=== PATIENT | female | born 2000 | race Caucasian/White ===

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

== ENCOUNTER 2021-01-04 09:03 | Emergency (ER) | payer OTHER, SELFPAY ==
[2021-01-04 09:07] VITALS: BP 129/84; PULSE 100; RESP 16; TEMP 36.6; O2SAT 100; BMI 43.7
--- NOTE | 2021-01-04 09:41 | ED.BACK ---
HPI - Back Pain/Injury General Chief Complaint: Back Pain/Injury Stated Complaint: sciatica Time Seen by Provider: 01/04/21 09:37 Source: patient Mode of arrival: ambulatory History of Present Illness HPI Narrative: 20-year-old female With a past medical history of sciatica presenting to the ED complaining of right-sided low back pain radiating to right buttock and down right lower extremity x2 days. Reports a flare of her sciatic pain. Reports woke up with pain, denies known injury, trauma, fall, heavy lifting. Admits to associated paresthesias in his right foot. Denies numbness, weakness, urinary incontinence/retention, fever, chills. Taking Tylenol/ Motrin at home without relief MD elicited complaint: back pain Related Data Previous Rx's Medication Instructions Recorded amoxicillin 875 mg PO Q12H #20 tab 10/26/20 acetaminophen [Tylenol Extra 500 mg PO Q6H PRN #20 tab 01/04/21 Strength] cyclobenzaprine 5 mg PO Q8H PRN 5 Days #14 tab 01/04/21 lidocaine [Lidoderm] 1 patch TOPICAL DAILY PRN #30 ea 01/04/21 MDD remove after 12 hours naproxen 500 mg PO BID PRN 10 Days #20 tab 01/04/21 Allergies Allergy/AdvReac Type Severity Reaction Status Date / Time No Known Allergies Allergy Unverified 07/22/20 18:33 Review of Systems Review of Systems: Constitutional: No Fever, No Chills Genitourinary: No Urinary Frequency, No Hematuria, No Urinary Incontinence/retention Musculoskeletal: +back pain, No Myalgias, No Joint Swelling Skin: No Skin Lesions, No rash Neuro: No Weakness, No Numbness, + Paresthesias Yes all other systems are reviewed and are negative COUNTS INCLUDE 234 BEDS AT THE [facility] Past Medical History Attestation statement: The following information was validated with the patient. Medical History Scarlet fever Surgical History (Updated 10/26/20 @ 11:05 by Avril Frye) H/O adenoidectomy Hx of tonsillectomy Social History Social History Advance Directives: Yes Advance Directives Information Provided: No Advance Directives on File: No Physical Exam Vital Signs: Vital Signs: Last Vital Signs Temp 97.9 F 01/04/21 09:07 Pulse 100 01/04/21 09:07 Resp 16 01/04/21 09:07 BP 129/84 01/04/21 09:07 Pulse Ox 100 01/04/21 09:07 Body Mass Index 43.7 Const: General: cooperative and healthy appearing Orientation/consciousness: patient oriented x3 Limitations: no limitations HENMT: Head: Yes normal to inspection Ears: hearing grossly normal bilaterally General nose exam: Normal external nose present Face and sinus: Yes normal facial exam Eyes: General: appearance normal, both eyes and all related structures EOM: EOMs intact bilaterally Neck: Neck: Yes normal visual inspection Resp: Effort & Inspection: normal respiratory effort Cardio: Rate: regular rate Peripheral pulses: dorsalis pedis present Back/Spine/Pelvis: Other: No midline thoracic/lumbar spinous tenderness or step-off. + right-sided and left-sided lower lumbar MSK tenderness. Right buttock tenderness to palpation Skin: Rashes: no rashes Wounds: no wounds Neuro: Other: No saddle anesthesia General: patient oriented x3 Gait exam (Neuro): Normal gait present Motor exam (neuro): 5/5 motor strength present throughout Extrem: General: Yes normal to inspection MDM - Back Pain/Injury MDM Narrative Medical decision making narrative: On exam VSS, NAD/well appearing, no midline spinous tenderness throughout, no red flag symptoms, no saddle anesthesia. Likely MSK pain/sciatic pain. Low concern for cauda equina/cord compression. Medical Records Attestation: I reviewed the patient's medical records. Discharge Plan Discharge Clinical Impression: Sciatica Qualifiers: Laterality: right Qualified Code(s): M54.31 - Sciatica, right side Patient Disposition: Home, Self-Care Instructions: Back Pain (ED) Additional Instructions: Your pain is likely musculoskeletal Flexeril is a muscle relaxer, take at night as it makes you drowsy, do not drive, drink alcohol, or operate machinery while taking it Naproxen as an anti-inflammatory / pain medication, take with food Lidoderm patches are numbing patches, apply to painful area In addition take Tylenol at home If symptoms persist or worsen, pain becomes unbearable, you developed urinary retention or incontinence, or weakness return to the ED Prescriptions: New acetaminophen [Tylenol Extra Strength] 500 mg tablet 500 mg PO Q6H PRN (Reason: pain or fever) Qty: 20 RF: 0 lidocaine [Lidoderm] 5 % adhesive patch,medicated 1 patch topical DAILY MDD remove after 12 hours PRN (Reason: pain) Qty: 30 RF: 0 naproxen 500 mg tablet 500 mg PO BID PRN (Reason: pain) 10 Days Qty: 20 RF: 0 cyclobenzaprine 5 mg tablet 5 mg PO Q8H PRN (Reason: pain (scale score 7-10)) 5 Days Qty: 14 RF: 0 No Action amoxicillin 875 mg tablet 875 mg PO Q12H Qty: 20 RF: 0 Referrals: Teresita Clemens, [Primary Care Provider] - 5 days Stand Alone Forms: Work/School Release
[2021-01-04] MEDS: Ketorolac Tromethamine 30 MG/ML VIAL IM (10:04)
[2021-01-04] MEDS: Lidocaine 4 % Patch ADH..PATCH 1 PATCH TRANSDERMA (10:05)
== END 2021-01-04 10:13 | disposition home or self-care (01) ==
PROVIDERS: Emergency Provider Emergency Medicine; PCP Pediatrics
DX: M54.31 Sciatica, right side (principal); Z79.899 Other long term (current) drug therapy
CPT/HCPCS: 96372; 99283; 99284; J1885

== ENCOUNTER 2021-03-20 17:14 | Emergency (ER) | payer MEDICAID, SELFPAY ==
[2021-03-20 17:26] VITALS: BP 142/86; PULSE 108; RESP 18; TEMP 36.6; O2SAT 97; BMI 46.3
--- NOTE | 2021-03-20 19:43 | PC.NURSE ---
Pt ambulatory with steady gait to stretcher, in NAD, breathing with ease on RA. Pt aaox4, appears uncomfortable. Pt offers no concerns. Stretcher in lowest locked position, rails raised, awaiting ED Provider.
--- NOTE | 2021-03-20 20:27 | ED.HA ---
HPI - Headache General Chief Complaint: Headache Stated Complaint: headache Time Seen by Provider: 03/20/21 20:27 Source: patient Mode of arrival: ambulatory Limitations: no limitations History of Present Illness HPI Narrative: Patient history of migraine being having headache been having headache all day today with light sensitivity and nausea MD elicited complaint: headache Pertinent past history: migraines Onset (ago): hour(s) Related Data Previous Rx's Medication Instructions Recorded amoxicillin 875 mg PO Q12H #20 tab 10/26/20 acetaminophen [Tylenol Extra 500 mg PO Q6H PRN #20 tab 01/04/21 Strength] cyclobenzaprine 5 mg PO Q8H PRN 5 Days #14 tab 01/04/21 lidocaine [Lidoderm] 1 patch TOPICAL DAILY PRN #30 ea 01/04/21 MDD remove after 12 hours naproxen 500 mg PO BID PRN 10 Days #20 tab 01/04/21 [id number] 1 cap PO Q6H PRN #20 cap 03/20/21 [Fioricet] sumatriptan succinate [Imitrex] See Rx Instructions .ROUTE 03/20/21 .COMPLEX #10 tab Allergies Allergy/AdvReac Type Severity Reaction Status Date / Time No Known Allergies Allergy Unverified 07/22/20 18:33 Review of Systems Review of Systems: Constitutional : No Weight loss, No Fever, No Chills ENT/Mouth : No sore throat, No Rhinorrhea Eyes: No Eye Pain, No Swelling Cardiovascular : No Chest Pain, no palpitations Respiratory : No Cough, No Sputum, no shortness of breath Gastrointestinal : + Nausea, No Vomiting, No Diarrhea, No abdominal Pain, no black stools Genitourinary : No Dysuria, No Urinary Frequency Musculoskeletal : No joint pain, No Myalgias, No Joint Swelling Skin : No Skin Lesions, No rash Neuro : No Weakness, No Numbness, No Dizziness, + Headache Psych : No Anxiety/Panic, No Depression Heme/Lymph: No Bruising, No Lymphadenopathy Endocrine : No Polyuria, No Polydipsia All other systems reviewed and are negative PMFSH Past Medical History Medical History Scarlet fever Surgical History H/O adenoidectomy Hx of tonsillectomy Social History Social History Advance Directives: No Advance Directives Information Provided: No Patient : No Physical Exam Vital Signs: Vital Signs: Last Vital Signs Temp 98.5 F 03/20/21 20:44 Pulse 81 03/20/21 20:44 Resp 18 03/20/21 20:44 BP 128/71 03/20/21 20:44 Pulse Ox 98 03/20/21 20:44 Body Mass Index 46.3 Appearance: Alert. Oriented X3. No acute distress. Eyes: PERRLA, No Nystagmus photosensitive ENT: Pharynx normal. Oral Mucosa moist Neck: Normal inspection. Neck supple. CVS: Normal heart rate and rhythm. Pulses normal. Respiratory: No respiratory distress. Equal air entry bilateral, no wheezing/rales/rhonchi Abdomen: Soft and nontender. Bowel sounds are present, no mass palpable, no CVA tenderness Skin: Skin warm and dry. Normal skin color. Normal skin turgor. Extremities: No lower extremity edema. No calf tenderness Neuro: Oriented X 3. No motor deficit. No sensory deficit.No cerebellar signs , cranial nerves II-XII intact MDM - Headache MDM Narrative Medical decision making narrative: Patient responded to Imitrex will discharge home on Imitrex and Fioricet Differential Diagnosis Differential diagnosis: Likely migraine Discharge Plan Discharge Clinical Impression: Migraine Qualifiers: Migraine type: with aura Status migrainosus presence: without status migrainosus Intractability: not intractable Qualified Code(s): G43.109 - Migraine with aura, not intractable, without status migrainosus Patient Disposition: Home, Self-Care Instructions: Migraine Headache (ED) Additional Instructions: Rest at home take medicine as prescribed Follow-up with PCP if not better Prescriptions: New sumatriptan succinate [Imitrex] 50 mg tablet See Rx Instructions .ROUTE .COMPLEX Qty: 10 RF: 0 [id number]-[id number]-runk [Fioricet] 50-300-40 mg capsule 1 cap PO Q6H PRN (Reason: pain) Qty: 20 RF: 0 No Action amoxicillin 875 mg tablet 875 mg PO Q12H Qty: 20 RF: 0 acetaminophen [Tylenol Extra Strength] 500 mg tablet 500 mg PO Q6H PRN (Reason: pain or fever) Qty: 20 RF: 0 lidocaine [Lidoderm] 5 % adhesive patch,medicated 1 patch topical DAILY MDD remove after 12 hours PRN (Reason: pain) Qty: 30 RF: 0 naproxen 500 mg tablet 500 mg PO BID PRN (Reason: pain) 10 Days Qty: 20 RF: 0 cyclobenzaprine 5 mg tablet 5 mg PO Q8H PRN (Reason: pain (scale score 7-10)) 5 Days Qty: 14 RF: 0
[2021-03-20 20:44] VITALS: BP 128/71; PULSE 81; RESP 18; TEMP 36.9; O2SAT 98
[2021-03-20] MEDS: Ibuprofen 600 MG TABLET PO (21:47)
== END 2021-03-20 22:25 | disposition home or self-care (01) ==
PROVIDERS: Emergency Provider Internal Medicine
DX: G43.109 Migraine with aura, not intractable, without status migrainosus (principal); Z79.899 Other long term (current) drug therapy
CPT/HCPCS: 96372; 99283; 99284; J3030

== ENCOUNTER 2021-12-14 10:38 | Emergency (ER) | payer OTHER, SELFPAY ==
[2021-12-14 10:44] VITALS: BP 133/59; PULSE 100; RESP 19; TEMP 36.6; O2SAT 100; BMI 44.1
--- NOTE | 2021-12-14 11:58 | ED_ITS ---
HPI - Fall General Chief Complaint: Back Pain/Injury Stated Complaint: fall back inj at work Time Seen by Provider: 12/14/21 11:58 History of Present Illness HPI Narrative: Patient complains of right low back and right gluteal pain after a slip and fall in the parking lot at work last night, she felt back pain right away, no other injury No numbness no weakness no tingling no radiation of pain no changes to bowel or bladder She did not hit her head she has no neck Related Data Previous Rx's Medication Instructions Recorded amoxicillin 875 mg tablet 875 mg PO Q12H #20 tab 10/26/20 acetaminophen 500 mg tablet 500 mg PO Q6H PRN #20 tab 01/04/21 (Tylenol Extra Strength) cyclobenzaprine 5 mg tablet 5 mg PO Q8H PRN 5 Days #14 tab 01/04/21 lidocaine 5 % topical patch 1 patch TOPICAL DAILY PRN #30 ea 01/04/21 (Lidoderm) MDD remove after 12 hours naproxen 500 mg tablet 500 mg PO BID PRN 10 Days #20 tab 01/04/21 [id number]-[id number] 1 cap PO Q6H PRN #20 cap 03/20/21 50 mg-300 mg-40 mg capsule (Fioricet) sumatriptan succinate 50 mg tablet See Rx Instructions .ROUTE 03/20/21 (Imitrex) .COMPLEX #10 tab acetaminophen 500 mg tablet 1,000 mg PO QID PRN #30 tab 12/14/21 cyclobenzaprine 5 mg tablet 5 mg PO TID PRN #10 tab 12/14/21 ibuprofen 600 mg tablet 600 mg PO Q6H PRN #20 tab 12/14/21 Allergies Allergy/AdvReac Type Severity Reaction Status Date / Time No Known Allergies Allergy Unverified 07/22/20 18:33 Review of Systems Review of Systems: Positive for right low back pain after a fall Negatives are no headache no head injury no neck pain no numbness weakness or tingling no chest pain no rib pain no abdominal pain no changes to bowel or bl adder no dysuria no frequency no incontinence no extremity pains Yes all other systems are reviewed and are negative PMFSH Past Medical History Source: nursing notes reviewed Medical History (Updated 12/14/21 @ 12:04 by ARTURO Jarrell) Anxiety Migraines Scarlet fever Sciatic leg pain Surgical History H/O adenoidectomy Hx of tonsillectomy Social History Social History Advance Directives: No Advance Directives Information Provided: No Physical Exam Vital Signs: Vital Signs: Last Vital Signs Temp 98 F 12/14/21 10:44 Pulse 100 12/14/21 10:44 Resp 19 12/14/21 10:44 BP 133/59 L 12/14/21 10:44 Pulse Ox 100 12/14/21 10:44 BMI result Body Mass Index 44.1 General appearance no acute distress Head is normocephalic atraumatic Neck is supple nontender Chest wall nontender Abdomen is soft nontender The back had right-sided lower lumbar paraspinal tenderness, there is no bony tenderness no CVA tenderness no changes to the skin no ecchymosis no laceration no wounds no rashes The extremities are full range of motion x4 Neuro gait and balance are normal, there is no sensory deficit, and motor is 5/5 x4 Course Course Course Narrative: Well-appearing patient without neurologic deficit or any other injuries diagnosed with low back strain from a fall Discharge Plan Discharge Clinical Impression: Strain of lumbar region Patient Disposition: Home, Self-Care Additional Instructions: No sign of any broken bone or dangerous injury, but you do seem to have strained muscles in her back and her experiencing pain As this is a work related injury follow with [facility] Return any time any worse condition or any concerns Prescriptions: New acetaminophen 500 mg tablet 1,000 mg PO QID PRN (Reason: pain) Qty: 30 0RF cyclobenzaprine 5 mg tablet 5 mg PO TID PRN (Reason: muscle spasm) Qty: 10 0RF ibuprofen 600 mg tablet 600 mg PO Q6H PRN (Reason: pain) Qty: 20 0RF No Action amoxicillin 875 mg tablet 875 mg PO Q12H Qty: 20 0RF acetaminophen [Tylenol Extra Strength] 500 mg tablet 500 mg PO Q6H PRN (Reason: pain or fever) Qty: 20 0RF lidocaine [Lidoderm] 5 % adhesive patch,medicated 1 patch topical DAILY MDD remove after 12 hours PRN (Reason: pain) Qty: 30 0RF Rx Instructions: leave on most painful area for up to 12 hrs naproxen 500 mg tablet 500 mg PO BID PRN (Reason: pain) 10 Days Qty: 20 0RF cyclobenzaprine 5 mg tablet 5 mg PO Q8H PRN (Reason: pain (scale score 7-10)) 5 Days Qty: 14 0RF sumatriptan succinate [Imitrex] 50 mg tablet See Rx Instructions .ROUTE .COMPLEX Qty: 10 0RF Rx Instructions: take 1 tab at onset of headache; if no relief may repeat 1 tab after at least 2 hrs; max = 2 tabs/24 hr [id number]-[id number] [Fioricet] 50-300-40 mg capsule 1 cap PO Q6H PRN (Reason: pain) Qty: 20 0RF Referrals: [facility] [Provider Group] - 2 days (Back strain after fall at work) Stand Alone Forms: Work/School Release Interventions: ED Discharge Assessment Last Done: 12/14/21 12:39 Discharge Date/Time: 12/14/21 12:49
[2021-12-14] MEDS: Ketorolac Tromethamine 30 MG/ML VIAL IM (12:36)
== END 2021-12-14 12:49 | disposition home or self-care (01) ==
PROVIDERS: Emergency Provider Emergency Medicine
DX: S39.012A Strain of muscle, fascia and tendon of lower back, initial encounter (principal); W01.0XXA Fall on same level from slipping, tripping and stumbling without subsequent striking against object, initial encounter; Y93.01 Activity, walking, marching and hiking; Y92.481 Parking lot as the place of occurrence of the external cause; Y99.0 Civilian activity done for income or pay
CPT/HCPCS: 96372; 99284; J1885

== ENCOUNTER 2022-02-16 19:41 | Emergency (ER) | payer OTHER, SELFPAY ==
--- NOTE | ~2022-02-16 | XR_ITS ---
EXAMINATION: XR chest 1V CLINICAL INFORMATION: Reason for Exam CP COMPARISON: Chest radiograph 12/30/2019 TECHNIQUE: One view of the chest XR/XR chest 1V FINDINGS/IMPRESSION: Clear lungs. No pneumothorax. No pleural effusion. Normal cardiomediastinal silhouette.
--- NOTE | 2022-02-16 19:43 | ECG_ITS ---
Test Reason : chest pain Blood Pressure : / mmHG Vent. Rate : 121 BPM Atrial Rate : 122 BPM P-R Int : 146 ms QRS Dur : 080 ms QT Int : 304 ms P-R-T Axes : 047 043 -01 degrees QTc Int : 431 ms Sinus tachycardia Otherwise normal ECG When compared with ECG of 30-DEC-2019 05:55, No significant change was found Referred By: Generic ED Physician Electronically Signed By:Fawad So
[2022-02-16 19:48] VITALS: BP 152/95; PULSE 118; RESP 14; TEMP 37.1; O2SAT 95; BMI 44.1
[2022-02-16 20:08] LABS: MANUAL DIFF FLAG NO
[2022-02-16 20:09] LABS: Basophils Percent Auto 0.3 % (0-2); Eosinophils Absolute Auto 0.1 X10*3/uL (0.0-0.4); Eosinophils Percent Auto 1.7 % (0-4); Hematocrit 43.1 % (37.0-47.0); Hemoglobin 14.2 g/dl (12.0-16.0); Imm Gran Abs Auto 0.05 X10*3/uL (0.00-0.03); Imm Gran Pct Auto 0.7 % (0.0-0.4); Lymphocytes Absolute Auto 1.7 X10*3/uL (1.2-4.9); Lymphocytes Percent Auto 23.1 % (20-40); Mean Corpuscular HGB Conc 32.9 g/dl (31.0-35.0); Mean Corpuscular Hemoglobin 26.9 pg (27.0-33.0); Mean Corpuscular Volume 81.8 fL (80.0-98.0); Mean Platelet Volume 9.8 fL (9.4-12.3); Monocytes Percent Auto 13.7 % (2-11); Neutrophils Absolute Auto 4.5 x10*3/uL (2.0-8.3); Neutrophils Percent Auto 60.5 % (45-73); Platelet Count 286 X10*3/uL (160-400); Red Blood Count 5.27 X10*6/uL (4.20-5.50); Red Cell Distribution Width 14.2 % (11.0-16.0); White Blood Count 7.4 X10*3/uL (4.8-10.8)
[2022-02-16 20:26] VITALS: BP 126/83; PULSE 113; RESP 20; TEMP 37.2; O2SAT 94
[2022-02-16 20:30] LABS: Anion Gap 15 (12-20); Blood Urea Nitrogen 8 mg/dL (9-16); Calcium 9.3 mg/dL (8.4-10.2); Carbon Dioxide 23 mmol/L (22-29); Chloride 107 mmol/L (96-108); Creatinine Clr Calc Pharmacy 140.7; Estimated Glomerular Filt Rate > 60; Glucose Random 88 mg/dL (60-115); Potassium 3.8 mmol/L (3.3-5.1); Sodium 141 mmol/L (135-145)
[2022-02-16 20:35] LABS: Troponin-I High Sensitivity < 3.5 ng/L (<3.5-17.0)
--- NOTE | 2022-02-16 21:31 | ED.CHESTPAIN ---
HPI - Chest Pain General Chief Complaint: Chest Pain Stated Complaint: chest pain Time Seen by Provider: 02/16/22 21:11 Source: patient Mode of arrival: ambulatory History of Present Illness HPI narrative: 21-year-old female with history of asthma and anxiety presents with onset substernal chest pressure that began in approximately 1300 this afternoon and radiates into the left upper extremity but not associated diaphoresis, dizziness, shortness of breath, nausea but the nausea has been ongoing and is consistent with her recent diagnosis of food poisoning, and denies any recent fever, chills, sore throat, new cough, recent travel, patient does smoke cigarettes and reports a positive family history of early CAD with an FL in her grandmother at the age of 50. Patient has not taken anything recently and has not had any vomiting. Related Data Previous Rx's Medication Instructions Recorded amoxicillin 875 mg tablet 875 mg PO Q12H #20 tab 10/26/20 acetaminophen 500 mg tablet 500 mg PO Q6H PRN #20 tab 01/04/21 (Tylenol Extra Strength) cyclobenzaprine 5 mg tablet 5 mg PO Q8H PRN 5 Days #14 tab 01/04/21 lidocaine 5 % topical patch 1 patch TOPICAL DAILY PRN #30 ea 01/04/21 (Lidoderm) MDD remove after 12 hours naproxen 500 mg tablet 500 mg PO BID PRN 10 Days #20 tab 01/04/21 [id number]-zrawzgipkuand-fpuctzae 1 cap PO Q6H PRN #20 cap 03/20/21 50 mg-300 mg-40 mg capsule (Fioricet) sumatriptan succinate 50 mg tablet See Rx Instructions .ROUTE 03/20/21 (Imitrex) .COMPLEX #10 tab acetaminophen 500 mg tablet 1,000 mg PO QID PRN #30 tab 12/14/21 cyclobenzaprine 5 mg tablet 5 mg PO TID PRN #10 tab 12/14/21 ibuprofen 600 mg tablet 600 mg PO Q6H PRN #20 tab 12/14/21 Allergies Allergy/AdvReac Type Severity Reaction Status Date / Time No Known Allergies Allergy Unverified 07/22/20 18:33 Review of Systems Review of Systems: Pertinent positives and negatives as stated in HPI 10 point review of systems is otherwise negative. [facility] Past Medical History Source: nursing notes reviewed Medical History Anxiety Migraines Scarlet fever Sciatic leg pain Surgical History H/O adenoidectomy Hx of tonsillectomy Social History Social History Advance Directives: No Physical Exam Vital Signs: Vital Signs: Last Vital Signs Temp 98.0 F 02/16/22 22:00 Pulse 109 H 02/16/22 22:00 Resp 17 02/16/22 22:00 BP 128/57 L 02/16/22 22:00 Pulse Ox 95 02/16/22 22:00 BMI result Body Mass Index 44.1 VITAL SIGNS: Reviewed. GENERAL: Well developed, well nourished, in no acute distress. HEAD: Normocephalic/atraumatic EYES: PERRLA, EOMI EARS: Ext canals without abnormality OROPHARYNX: no oral lesions noted, posterior pharynx clear and non-erythematous without noted tonsillar enlargement/erythema/exudates NECK: Supple, no adenopathy LUNGS: Normal breath sounds. No adventitious sounds or accessory muscle use. SpO2<94>; CHEST WALL: Pain is not reproducible but patient reports discomfort CARDIOVASCULAR: Regular rate and rhythm without noted murmurs, no JVD or lower extremity edema. ABDOMEN: Soft, non-tender, non-distended with bowel sounds. MUSCULOSKELETAL: No tenderness, deformities, or effusions noted on gross inspection. EXTREMITIES: No cyanosis, clubbing or edema. SKIN: Inspection of the skin reveals no rashes NEUROLOGIC: Alert and oriented x 4. Strength and sensation to light touch were grossly intact x 4. 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 Review of all investigations otherwise negative, EKG without acute findings and high sensitivity troponin is undetectable. In addition, on re-evaluation patient reports significant improvement after receiving combination analgesics/GI cocktail/albuterol treatment for suspected mild asthma symptoms. Patient without calf swelling or reported shortness of breath and low clinical suspicion for PE. Patient is otherwise discharged home in stable condition. MDM - Chest Pain Lab Data Result diagrams: 02/16/22 19:56 02/16/22 19:56 Labs: Lab Results 02/16/22 02/16/22 02/16/22 Range/Units 19:56 19:56 19:56 WBC 7.4 (4.8-10.8) X10*3/uL RBC 5.27 (4.20-5.50) X10*6/uL Hgb 14.2 (12.0-16.0) g/dl Hct 43.1 (37.0-47.0) % MCV 81.8 (80.0-98.0) fL MCH 26.9 L (27.0-33.0) pg MCHC 32.9 (31.0-35.0) g/dl RDW 14.2 (11.0-16.0) % Plt Count 286 (160-400) X10*3/uL MPV 9.8 (9.4-12.3) fL Immature Gran % (Auto) 0.7 H (0.0-0.4) % Neut % (Auto) 60.5 (45-73) % Lymph % (Auto) 23.1 (20-40) % [place] % (Auto) 13.7 H (2-11) % Eos % (Auto) 1.7 (0-4) % Baso % (Auto) 0.3 (0-2) % Lymph # (Auto) 1.7 (1.2-4.9) X10*3/uL [place] # (Auto) 1.0 (0.1-1.2) X10*3/uL Eos # (Auto) 0.1 (0.0-0.4) X10*3/uL Baso # (Auto) 0.0 (0.0-0.2) X10*3/uL Abs Immat Gran (auto) 0.05 H (0.00-0.03) X10*3/uL Absolute Neuts (auto) 4.5 (2.0-8.3) x10*3/uL Absolute Nucleated RBC 0.000 (0.0-0.012) X10*3/uL Nucleated RBC % (auto) 0.0 (0.0-0.2) /100WBC D-Dimer High Sensitivty NG/ML Sodium 141 (135-145) mmol/L Potassium 3.8 (3.3-5.1) mmol/L Chloride 107 (96-108) mmol/L Carbon Dioxide 23 (22-29) mmol/L Anion Gap 15 (12-20) BUN 8 L (9-16) mg/dL Creatinine 0.80 (0.5-1.4) mg/dL Estim Creat Clear Calc 140.7 Estimated GFR > 60 Random Glucose 88 (60-115) mg/dL Calcium 9.3 (8.4-10.2) mg/dL Troponin I High Sens < 3.5 (<3.5-17.0) ng/L Lipase 84 H (8-78) U/L 02/16/22 Range/Units 22:05 WBC (4.8-10.8) X10*3/uL RBC (4.20-5.50) X10*6/uL Hgb (12.0-16.0) g/dl Hct (37.0-47.0) % MCV (80.0-98.0) fL MCH (27.0-33.0) pg MCHC (31.0-35.0) g/dl RDW (11.0-16.0) % Plt Count (160-400) X10*3/uL MPV (9.4-12.3) fL Immature Gran % (Auto) (0.0-0.4) % Neut % (Auto) (45-73) % Lymph % (Auto) (20-40) % [place] % (Auto) (2-11) % Eos % (Auto) (0-4) % Baso % (Auto) (0-2) % Lymph # (Auto) (1.2-4.9) X10*3/uL [place] # (Auto) (0.1-1.2) X10*3/uL Eos # (Auto) (0.0-0.4) X10*3/uL Baso # (Auto) (0.0-0.2) X10*3/uL Abs Immat Gran (auto) (0.00-0.03) X10*3/uL Absolute Neuts (auto) (2.0-8.3) x10*3/uL Absolute Nucleated RBC (0.0-0.012) X10*3/uL Nucleated RBC % (auto) (0.0-0.2) /100WBC D-Dimer High Sensitivty 295 NG/ML Sodium (135-145) mmol/L Potassium (3.3-5.1) mmol/L Chloride (96-108) mmol/L Carbon Dioxide (22-29) mmol/L Anion Gap (12-20) BUN (9-16) mg/dL Creatinine (0.5-1.4) mg/dL Estim Creat Clear Calc Estimated GFR Random Glucose (60-115) mg/dL Calcium (8.4-10.2) mg/dL Troponin I High Sens (<3.5-17.0) ng/L Lipase (8-78) U/L ECG Data ECG #1: Attestation: I personally reviewed and interpreted this ECG as follows: Prior ECG tracings: available for review Interpretation: NSR, HR-121, no STEMI, [place]/QRS/QTC are within normal limits. Discharge Plan Discharge Clinical Impression: Atypical chest pain, Costalchondritis, Musculoskeletal chest pain Patient Disposition: Home, Self-Care Instructions: Costochondritis (ED), Chest Wall Pain (ED), Chest Pain (ED) Additional Instructions: 1. Recommend resuming all home medications as prescribed. 2. Recommend [id number] Tylenol/ibuprofen as needed for additional pain relief. 3. Follow-up with your primary care provider for re-evaluation further outpatient management. Return to the ER for worsening symptoms. Prescriptions: No Action amoxicillin 875 mg tablet 875 mg PO Q12H Qty: 20 0RF acetaminophen [Tylenol Extra Strength] 500 mg tablet 500 mg PO Q6H PRN (Reason: pain or fever) Qty: 20 0RF lidocaine [Lidoderm] 5 % adhesive patch,medicated 1 patch topical DAILY MDD remove after 12 hours PRN (Reason: pain) Qty: 30 0RF Rx Instructions: leave on most painful area for up to 12 hrs naproxen 500 mg tablet 500 mg PO BID PRN (Reason: pain) 10 Days Qty: 20 0RF cyclobenzaprine 5 mg tablet 5 mg PO Q8H PRN (Reason: pain (scale score 7-10)) 5 Days Qty: 14 0RF sumatriptan succinate [Imitrex] 50 mg tablet See Rx Instructions .ROUTE .COMPLEX Qty: 10 0RF Rx Instructions: take 1 tab at onset of headache; if no relief may repeat 1 tab after at least 2 hrs; max = 2 tabs/24 hr fndqnujfgb-vmmgkqoubvarf-kgol [Fioricet] 50-300-40 mg capsule 1 cap PO Q6H PRN (Reason: pain) Qty: 20 0RF acetaminophen 500 mg tablet 1,000 mg PO QID PRN (Reason: pain) Qty: 30 0RF cyclobenzaprine 5 mg tablet 5 mg PO TID PRN (Reason: muscle spasm) Qty: 10 0RF ibuprofen 600 mg tablet 600 mg PO Q6H PRN (Reason: pain) Qty: 20 0RF
[2022-02-16] MEDS: Acetaminophen 325 MG TABLET 975 MG PO (21:37)
[2022-02-16] MEDS: Ketorolac Tromethamine 15 MG/ML VIAL IM (21:38)
[2022-02-16] MEDS: Lidocaine HCl Viscous 2 % 15 ML SOLUTION 10 ML MUCOUS MEM (21:39)
[2022-02-16] MEDS: Magnesium Hydrox/Alum Hydrox 30 ML ORAL.SUSP PO (21:39)
[2022-02-16] MEDS: Albuterol Sulfate (0.083%) 2.5 MG/3 ML VIAL.NEB INHALE (21:48)
[2022-02-16 21:51] LABS: Lipase 84 U/L (8-78)
[2022-02-16 22:00] VITALS: BP 128/57; PULSE 109; RESP 17; TEMP 36.7; O2SAT 95
[2022-02-16 22:29] LABS: D Dimer High Sensitivity 295 NG/ML
== END 2022-02-16 22:51 | disposition home or self-care (01) ==
PROVIDERS: Emergency Provider Student in an Organized Health Care Education/Training Program
DX: R07.89 Other chest pain (principal); M94.0 Chondrocostal junction syndrome [Tietze]; M79.602 Pain in left arm; Z79.899 Other long term (current) drug therapy; F17.210 Nicotine dependence, cigarettes, uncomplicated; Z71.6 Tobacco abuse counseling
CPT/HCPCS: 36415; 71045; 80048; 83690; 84484; 85025; 85379; 93005; 96372; 99284; J1885

== ENCOUNTER 2022-04-26 09:41 | Emergency (ER) | payer OTHER, SELFPAY ==
--- NOTE | ~2022-04-26 | XR_ITS ---
EXAMINATION: XR LUMBOSACRAL SPINE CLINICAL INFORMATION: Low back pain COMPARISON: None TECHNIQUE: Three views of the lumbosacral spine. FINDINGS: The vertebral bodies and posterior elements are normal. The disc spaces are preserved and the vertebral alignment is normal. The paraspinal soft tissues are normal. XR/XR lumbar spine 2-3V IMPRESSION: Unremarkable examination.
[2022-04-26 10:04] VITALS: BP 133/65; PULSE 87; RESP 16; TEMP 36.9; O2SAT 100; BMI 44.1
--- NOTE | 2022-04-26 11:06 | ED.GENADULT ---
HPI - General Adult General Chief complaint: Back Pain/Injury Stated complaint: Back Pain No Injury Time Seen by Provider: 04/26/22 11:05 Source: patient Mode of arrival: ambulatory Limitations: no limitations History of Present Illness HPI narrative: Patient is a 22 year old female presenting to the emergency department today with back pain. 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 Patient denies any dizziness, lightheadedness, abdominal pain, nausea, vomiting, fever, chills, blurry vision, double vision, loss of vision, chest pain, difficulty breathing, shortness of breath, night sweats, pain with urination, increased urinary frequency, increased urinary urgency, blood in her urine or stool, syncope or a near syncopal episode, recent trauma or falls, bowel incontinence, bladder incontinence, bowel retention, bladder retention, or any other complaints at this time. Onset (ago): hour(s) Location: back Radiation: non-radiation Severity: mild Severity scale (1-10): 3 Quality: dull Pain Consistency: constant Relieving factors: none Exacerbating factors: none Associated symptoms: denies other symptoms Treatments prior to arrival: none Related Data Previous Rx's Medication Instructions Recorded acetaminophen 500 mg tablet 500 mg PO Q6H PRN pain or fever 01/04/21 (Tylenol Extra Strength) #20 tabs lidocaine 5 % topical patch 1 patch topical DAILY PRN pain #30 01/04/21 (Lidoderm) ea txuoihzlyo-pmjmbswrjtken-mrkpekrz 1 cap PO Q6H PRN pain #20 caps 03/20/21 50 mg-300 mg-40 mg capsule (Fioricet) sumatriptan succinate 50 mg tablet See Rx Instructions PO .COMPLEX 03/20/21 (Imitrex) #10 tabs ibuprofen 600 mg tablet 600 mg PO Q6H PRN pain #20 tabs 12/14/21 cyclobenzaprine 10 mg tablet 5 mg PO TID PRN back pain 7 days 04/26/22 #21 tabs Allergies Allergy/AdvReac Type Severity Reaction Status Date / Time No Known Allergies Allergy Unverified 07/22/20 18:33 Review of Systems Constitutional: Constitutional: Reports no additional constitutional complaints, Denies chills, Denies fever(s) and Denies night sweats Eyes: Eyes: Reports no additional eye complaints, Denies blurry vision, Denies change in vision, Denies diplopia, Denies eye discharge, Denies loss of vision and Denies eye pain ENT: Denies dizziness Cardiovascular: Cardiovascular: Reports no additional cardiovascular complaints, Denies chest pain, Denies lightheadedness, Denies Loss of Consciousness and Denies dyspnea Respiratory: Respiratory: Reports no additional respiratory complaints and Denies dyspnea Gastrointestinal: Gastrointestinal: Reports no additional gastrointestinal complaints, Denies abdominal pain, Denies melena, Denies hematochezia, Denies change in bowel habits and Denies change in stool character Genitourinary: Genitourinary: Denies hematuria, Denies urinary frequency, Denies dysuria, Denies urinary incontinence, Denies urinary hesitancy and Denies urinary urgency Musculoskeletal: Musculoskeletal: Reports no additional musculoskeletal complaints, Reports back pain, Denies numbness and Denies tingling Neurologic: Denies dizziness, Denies loss of vision, Denies numbness and Denies tingling Psychiatric: Psychiatric: Reports no additional psychiatric complaints Endocrine: Endocrine: Reports no additional endocrine complaints Hematologic/Lymphatic: Hematologic/Lymphatic: Reports no additional hematologic/lymphatic complaints Allergic/Immunologic: Allergic/Immunologic: Reports no additional allergic/immunologic complaints PMFSH Past Medical History Attestation statement: The following information was validated with the patient. Source: old records reviewed Medical History Anxiety Migraines Scarlet fever Sciatic leg pain Surgical History H/O adenoidectomy Hx of tonsillectomy Social History Social History Advance Directives: No Advance Directives Information Provided: No Physical Exam ED Vital Signs: Vital Signs - 24 hr 04/26/22 10:04 Temperature 98.4 F Pulse Rate 87 Respiratory Rate 16 Blood Pressure 133/65 Pulse Oximetry 100 Oxygen Delivery Method Room Air BMI result Body Mass Index 44.1 Const General: cooperative, no acute distress, alert and awake Nutritional Appearance: well nourished Orientation/consciousness: patient oriented x3 Limitations: no limitations HENMT Head: Yes normal to inspection and Yes atraumatic Ears: hearing grossly normal bilaterally and external ears normal General nose exam: Normal external nose present, no nasal discharge noted and no epistaxis Face and sinus: Yes normal facial exam, No abrasion and No laceration Mouth: Normal oral and palatal mucosa present, no drooling and no muffled voice Eyes General: appearance normal, both eyes and all related structures Periorbital: periorbital findings normal Eyelids: Yes eyelids normal Conjunctivae: conjunctivae normal Pupils: Equal, round and reactive pupils present EOM: EOMs intact bilaterally Neck Neck: Yes normal visual inspection, Yes full ROM and Yes no lymphadenopathy Chest Chest palpation & inspection: normal inspection of the chest Resp Effort & Inspection: normal respiratory effort and able to speak in complete sentences Auscultation: clear to auscultation bilaterally Cardio Rate: regular rate Rhythm: regular rhythm GI Inspection: Yes normal to inspection General: Yes no CVA tenderness Back/Spine/Pelvis Back: no CVA tenderness Cervical Spine: normal cervical lordosis and cervical ROM normal Thoracic/Lumbar Spine: thoracic and lumbar spine normal to inspection and thoraco-lumbar ROM normal Neuro General: patient oriented x3 and moves all extremities Cranial nerves: Yes Equal, round and reactive pupils present Cognition (Neuro): normal cognition Motor exam (neuro): 5/5 motor strength present throughout Sensory Exam: Normal double simultaneous stimulation for sensation Coordination: wwshfo-eh-usse test normal Extrem General: Yes normal to inspection, Yes full ROM and Yes capillary refill normal Psych Appearance: grossly normal Mental Status: mental status grossly normal Affect: normal affect Attitude: cooperative Thought process: Normal thought process present Thought content: Normal thought content present Insight: Good insight present (Psych) Medical Decision Making MDM Narrative Medical decision making narrative: Patient is a 22 year old female presenting to the emergency department today with back pain. Patient's physical exam was unremarkable. Patient's lumbar x-ray showed no acute process. I explained my physical exam findings as well as all test results to the patient. I answered all questions asked by the patient. Patient received IM toradol and PO Flexeril which she stated helped her symptoms significantly. I stressed the importance of the patient taking her medication as prescribed. I stressed the importance of the patient following up with her primary care provider. I stressed the importance of the patient returning to the emergency department immediately if her symptoms were to worsen or if she were to develop any dizziness, shortness of breath, difficulty breathing, chest pain, blurry vision, loss of vision, nausea, vomiting, abdominal pain, fever, chills, back pain, or any other complaints. Patient verbalized agreement and understanding with this treatment plan and discharge. Differential Diagnosis Differential Diagnosis: back pain Medical Records Medical records reviewed: Yes I reviewed the patient's medical records. Imaging Data Lumbar spine x-ray: Attestation: I personally reviewed and interpreted this imaging study as follows: My impression: No acute process. Radiologist's impression: EXAMINATION: XR LUMBOSACRAL SPINE CLINICAL INFORMATION: Low back pain COMPARISON: None TECHNIQUE: Three views of the lumbosacral spine. FINDINGS: The vertebral bodies and posterior elements are normal. The disc spaces are preserved and the vertebral alignment is normal. The paraspinal soft tissues are normal. XR/XR lumbar spine 2-3V IMPRESSION: Unremarkable examination. Dictated By: Juhi Horne MD Signed By: Electronically signed by Juhi Horne MD 04/26/22 0154 Discharge Plan Discharge Clinical Impression: Sciatica Patient Disposition: Home, Self-Care Instructions: Back Pain (ED) Additional Instructions: Follow up with your primary care provider. Return to the emergency department immediately if your symptoms worsen or if you develop any dizziness, shortness of breath, difficulty breathing, chest pain, blurry vision, loss of vision, nausea, vomiting, abdominal pain, fever, chills, back pain, or any other complaints. Prescriptions: New cyclobenzaprine 10 mg tablet 5 mg PO TID PRN (Reason: back pain) 7 Days Qty: 21 0RF Continued lidocaine [Lidoderm] 5 % adhesive patch,medicated 1 patch topical DAILY MDD remove after 12 hours PRN (Reason: pain) Qty: 30 0RF Rx Instructions: leave on most painful area for up to 12 hrs sumatriptan succinate [Imitrex] 50 mg tablet See Rx Instructions .ROUTE .COMPLEX Qty: 10 0RF Rx Instructions: take 1 tab at onset of headache; if no relief may repeat 1 tab after at least 2 hrs; max = 2 tabs/24 hr qctnilbfrb-gboejufytloyk-hlld [Fioricet] 50-300-40 mg capsule 1 cap PO Q6H PRN (Reason: pain) Qty: 20 0RF ibuprofen 600 mg tablet 600 mg PO Q6H PRN (Reason: pain) Qty: 20 0RF Discontinued amoxicillin 875 mg tablet 875 mg PO Q12H Qty: 20 0RF naproxen 500 mg tablet 500 mg PO BID PRN (Reason: pain) 10 Days Qty: 20 0RF cyclobenzaprine 5 mg tablet 5 mg PO Q8H PRN (Reason: pain (scale score 7-10)) 5 Days Qty: 14 0RF acetaminophen 500 mg tablet 1,000 mg PO QID PRN (Reason: pain) Qty: 30 0RF cyclobenzaprine 5 mg tablet 5 mg PO TID PRN (Reason: muscle spasm) Qty: 10 0RF No Action acetaminophen [Tylenol Extra Strength] 500 mg tablet 500 mg PO Q6H PRN (Reason: pain or fever) Qty: 20 0RF [place] [facility] [place] [facility] [place] (Call to follow up and establish with a primary care provider. If you already have a primary care provider, please call and follow up with them. ) [facility] [place] [facility] [place] (Call to follow up and establish with a primary care provider. If you already have a primary care provider, please call and follow up with them. ) [facility] [place] [facility] [place] (Call to follow up and establish with a primary care provider. If you already have a primary care provider, please call and follow up with them. ) [facility] [place] [facility] [place]Provider Group] (If pain persists, please follow up with an orthopedic provider. ) Stand Alone Forms: Work/School Release Interventions: ED Discharge Assessment Last Done: 04/26/22 12:17 Discharge Date/Time: 04/26/22 12:18 Print Language: Bulgarian
[2022-04-26] MEDS: Cyclobenzaprine HCl 5 MG TABLET PO (11:18)
[2022-04-26] MEDS: Ketorolac Tromethamine 15 MG/ML VIAL IM (11:19)
== END 2022-04-26 12:18 | disposition home or self-care (01) ==
PROVIDERS: Emergency Provider Emergency Medicine
DX: M54.42 Lumbago with sciatica, left side (principal); M54.41 Lumbago with sciatica, right side; Z79.899 Other long term (current) drug therapy
CPT/HCPCS: 72100; 96372; 99283; 99284; J1885

== ENCOUNTER 2022-05-06 17:30 | Emergency (ER) | payer OTHER, SELFPAY ==
[2022-05-06 17:52] VITALS: BP 144/69; PULSE 113; RESP 18; TEMP 36.6; O2SAT 98; BMI 44.1
--- NOTE | 2022-05-06 17:52 | ED.GENADULT ---
HPI - General Adult General Chief complaint: Upper Respiratory Symptoms Stated complaint: COVID+, HEADACHE, NAUSEA, WEAKNESS Time Seen by Provider: 05/06/22 17:52 Source: patient and EMS Mode of arrival: EMS Limitations: no limitations History of Present Illness HPI narrative: Patient is a 22 year old female presenting to the emergency department today with a headache after testing positive for COVID-19 today. Patient states that he is a [employer] and her resident has COVID-19. Patient states that she feels unwell, with body aches and a headache. Patient states that she is a very anxious individual and this has been making her anxious. Patient states that she also has asthma but misplaced her inhaler. Patient denies any dizziness, lightheadedness, abdominal pain, nausea, vomiting, fever, chills, blurry vision, double vision, loss of vision, chest pain, difficulty breathing, shortness of breath, back pain, night sweats, pain with urination, increased urinary frequency, increased urinary urgency, blood in her urine or stool, syncope or a near syncopal episode, recent trauma or falls, bowel incontinence, bladder incontinence, bowel retention, bladder retention, or any other complaints at this time. Onset (ago): hour(s) Location: head Severity: mild Severity scale (1-10): 2 Quality: dull Pain Consistency: constant Relieving factors: none Exacerbating factors: none Associated symptoms: denies other symptoms Treatments prior to arrival: none Related Data Previous Rx's Medication Instructions Recorded acetaminophen 500 mg tablet 500 mg PO Q6H PRN pain or fever 01/04/21 (Tylenol Extra Strength) #20 tabs lidocaine 5 % topical patch 1 patch topical DAILY PRN pain #30 01/04/21 (Lidoderm) ea qirazymfzf-obqhgrnnyzuod-evysvhnh 1 cap PO Q6H PRN pain #20 caps 03/20/21 50 mg-300 mg-40 mg capsule (Fioricet) sumatriptan succinate 50 mg tablet See Rx Instructions PO .COMPLEX 03/20/21 (Imitrex) #10 tabs ibuprofen 600 mg tablet 600 mg PO Q6H PRN pain #20 tabs 12/14/21 cyclobenzaprine 10 mg tablet 5 mg PO TID PRN back pain 7 days 04/26/22 #21 tabs albuterol sulfate 90 mcg/actuation 2 puff inhalation QID PRN 05/06/22 aerosol inhaler (ProAir HFA) shortness of breath or wheezing #8.5 grams ondansetron 4 mg disintegrating 4 mg PO Q8H 3 days #9 tabs 05/06/22 tablet Allergies Allergy/AdvReac Type Severity Reaction Status Date / Time No Known Allergies Allergy Unverified 07/22/20 18:33 Review of Systems Constitutional: Constitutional: Reports no additional constitutional complaints, Reports body ache(s), Denies chills, Reports fever(s), Reports headache(s) and Denies night sweats Eyes: Eyes: Reports no additional eye complaints, Denies blurry vision, Denies change in vision, Denies diplopia, Denies eye discharge, Denies loss of vision and Denies eye pain ENT: Denies dizziness and Reports headache(s) Cardiovascular: Cardiovascular: Reports no additional cardiovascular complaints, Denies chest pain, Denies lightheadedness, Denies Loss of Consciousness and Denies dyspnea Respiratory: Respiratory: Reports no additional respiratory complaints and Denies dyspnea Gastrointestinal: Gastrointestinal: Reports no additional gastrointestinal complaints, Denies abdominal pain, Denies melena, Denies hematochezia, Denies change in bowel habits and Denies change in stool character Genitourinary: Genitourinary: Denies hematuria, Denies urinary frequency, Denies dysuria, Denies urinary incontinence, Denies urinary hesitancy and Denies urinary urgency Musculoskeletal: Musculoskeletal: Reports no additional musculoskeletal complaints, Denies numbness and Denies tingling Neurologic: Denies dizziness, Reports headache(s), Denies loss of vision, Denies numbness and Denies tingling Psychiatric: Psychiatric: Reports no additional psychiatric complaints Endocrine: Endocrine: Reports no additional endocrine complaints Hematologic/Lymphatic: Hematologic/Lymphatic: Reports no additional hematologic/lymphatic complaints Allergic/Immunologic: Allergic/Immunologic: Reports no additional allergic/immunologic complaints PMFSH Past Medical History Attestation statement: The following information was validated with the patient. Source: old records reviewed Medical History Anxiety Migraines Scarlet fever Sciatic leg pain Surgical History H/O adenoidectomy Hx of tonsillectomy Social History Social History Advance Directives: No Advance Directives Information Provided: No Physical Exam ED Vital Signs: Vital Signs - 24 hr 05/06/22 17:52 Temperature 98 F Pulse Rate 113 H Respiratory Rate 18 Blood Pressure 144/69 H Pulse Oximetry 98 Oxygen Delivery Method Room Air BMI result Body Mass Index 44.1 Const General: cooperative, no acute distress, alert and awake Nutritional Appearance: well nourished Orientation/consciousness: patient oriented x3 Limitations: no limitations HENMT Head: Yes normal to inspection and Yes atraumatic Ears: hearing grossly normal bilaterally and external ears normal General nose exam: Normal external nose present, no nasal discharge noted and no epistaxis Face and sinus: Yes normal facial exam, No abrasion and No laceration Mouth: Normal oral and palatal mucosa present, no drooling and no muffled voice Eyes General: appearance normal, both eyes and all related structures Periorbital: periorbital findings normal Eyelids: Yes eyelids normal Conjunctivae: conjunctivae normal Pupils: Equal, round and reactive pupils present EOM: EOMs intact bilaterally Neck Neck: Yes normal visual inspection, Yes full ROM and Yes no lymphadenopathy Chest Chest palpation & inspection: normal inspection of the chest Resp Effort & Inspection: normal respiratory effort and able to speak in complete sentences Auscultation: clear to auscultation bilaterally Cardio Rate: regular rate Rhythm: regular rhythm GI Inspection: Yes normal to inspection Neuro General: patient oriented x3 and moves all extremities Cranial nerves: Yes Equal, round and reactive pupils present Cognition (Neuro): normal cognition Motor exam (neuro): 5/5 motor strength present throughout Sensory Exam: Normal double simultaneous stimulation for sensation Coordination: wstaqv-eu-ngot test normal Extrem General: Yes normal to inspection, Yes full ROM and Yes capillary refill normal Psych Appearance: grossly normal Mental Status: mental status grossly normal Affect: normal affect Attitude: cooperative Thought process: Normal thought process present Thought content: Normal thought content present Insight: Good insight present (Psych) Medical Decision Making MDM Narrative Medical decision making narrative: Patient is a 22 year old female presenting to the emergency department today with a headache and body aches after testing positive for COVID-19. Patient's physical exam was unremarkable. Patient was in no acute distress. Patient had no difficulty breathing. Patient was resting comfortably throughout all interactions with this clinician. I explained my physical exam findings to the patient. I answered all questions asked by the patient. Patient received IV fluids, ODT Zofran, PO Tylenol, and IV Toradol which she stated helped her symptoms significantly. I stressed the importance of the patient taking her medication as prescribed. I stressed the importance of the patient following up with her primary care provider. I stressed the importance of the patient returning to the emergency department immediately if her symptoms were to worsen or if she were to develop any dizziness, shortness of breath, difficulty breathing, chest pain, blurry vision, loss of vision, nausea, vomiting, abdominal pain, fever, chills, back pain, or any other complaints. Patient verbalized agreement and understanding with this treatment plan and discharge. Differential Diagnosis Differential Diagnosis: COVID-19, migraine Medical Records Medical records reviewed: Yes I reviewed the patient's medical records. Discharge Plan Discharge Clinical Impression: COVID-19 Patient Disposition: Home, Self-Care Additional Instructions: Follow up with your primary care provider. Return to the emergency department immediately if your symptoms worsen or if you develop any dizziness, shortness of breath, difficulty breathing, chest pain, blurry vision, loss of vision, nausea, vomiting, abdominal pain, fever, chills, back pain, or any other complaints. Prescriptions: New ondansetron 4 mg tablet,disintegrating 4 mg PO Q8H 3 Days Qty: 9 0RF albuterol sulfate [ProAir HFA] 90 mcg/actuation HFA aerosol inhaler 2 puff inhalation QID PRN (Reason: shortness of breath or wheezing) Qty: 8.5 0RF No Action acetaminophen [Tylenol Extra Strength] 500 mg tablet 500 mg PO Q6H PRN (Reason: pain or fever) Qty: 20 0RF lidocaine [Lidoderm] 5 % adhesive patch,medicated 1 patch topical DAILY MDD remove after 12 hours PRN (Reason: pain) Qty: 30 0RF Rx Instructions: leave on most painful area for up to 12 hrs sumatriptan succinate [Imitrex] 50 mg tablet See Rx Instructions .ROUTE .COMPLEX Qty: 10 0RF Rx Instructions: take 1 tab at onset of headache; if no relief may repeat 1 tab after at least 2 hrs; max = 2 tabs/24 hr kodiyldpes-awjuzdoifanow-rfol [Fioricet] 50-300-40 mg capsule 1 cap PO Q6H PRN (Reason: pain) Qty: 20 0RF ibuprofen 600 mg tablet 600 mg PO Q6H PRN (Reason: pain) Qty: 20 0RF cyclobenzaprine 10 mg tablet 5 mg PO TID PRN (Reason: back pain) 7 Days Qty: 21 0RF Referrals: [facility] [place] [facility] [place]] (Call to establish and follow up with a primary care provider. If you already have a primary care provider, please call and follow up with them. ) [facility] [place] [facility] [Provider Group] (Call to establish and follow up with a primary care provider. If you already have a primary care provider, please call and follow up with them. ) [facility] [place] [facility] [Provider Group] (Call to establish and follow up with a primary care provider. If you already have a primary care provider, please call and follow up with them. ) Stand Alone Forms: Work/School Release Print Language: Surinamese
[2022-05-06] MEDS: Acetaminophen 325 MG TABLET 650 MG PO (18:18)
[2022-05-06] MEDS: Ondansetron ODT 4 MG TAB.RAPDIS TRANSLINGU (18:18)
[2022-05-06] MEDS: 0.9 % Sodium Chloride 250 ML 999 ML IV (18:21)
[2022-05-06] MEDS: Ketorolac Tromethamine 15 MG/ML VIAL IVPUSH (18:34)
[2022-05-06 19:00] VITALS: PULSE 86
== END 2022-05-06 19:16 | disposition home or self-care (01) ==
PROVIDERS: Emergency Provider Emergency Medicine
DX: U07.1 COVID-19 (principal); R51.9 Headache, unspecified
CPT/HCPCS: 96374; 99284; J1885

== ENCOUNTER 2022-06-15 00:39 | Emergency (ER) | payer OTHER, SELFPAY ==
--- NOTE | ~2022-06-15 | CT_ITS ---
EXAMINATION: CT ABDOMEN AND PELVIS WITHOUT CONTRAST CLINICAL INFORMATION: Left lower quadrant pain COMPARISON: None TECHNIQUE: Multidetector volumetric imaging was performed from the superior aspect of the liver through the pubic symphysis. Sagittal and coronal reformatted images were obtained on the technologist's workstation. This CT examination was performed using dose optimization techniques as appropriate, variously including the following: *Automated exposure control *Adjustment of mA and/or kV according to patient size (this includes techniques or standardized protocols for targeted exams where dose is matched to indication/reason for exam; i.e. extremities or head) *Use of iterative reconstruction technique DLP: 1015 mGy-cm FINDINGS: LUNG BASES: The visualized lung bases are unremarkable. LIVER, GALLBLADDER, AND BILIARY TREE: The liver is normal in size, shape, and attenuation. No focal hepatic lesion or biliary ductal dilatation is present. The gallbladder is unremarkable with no evidence of radiopaque gallstones, gallbladder wall thickening, or obvious pericholecystic inflammatory changes. PANCREAS: Unremarkable. SPLEEN: Unremarkable. ADRENAL GLANDS: Unremarkable. KIDNEYS AND URETERS: The kidneys are normal in size, shape, and attenuation. No hydronephrosis, hydroureter, or calculi seen. No perinephric stranding. BLADDER: Unremarkable. GASTROINTESTINAL TRACT: The small and large bowel are unremarkable. The appendix is unremarkable. ABDOMINAL WALL: No significant hernia is appreciated. LYMPH NODES: Normal. VASCULAR: Unremarkable. PELVIC VISCERA: The uterus and adnexa are unremarkable. OSSEOUS STRUCTURES: No acute or suspicious osseous abnormality. CT/CT abdomen pelvis wo con IMPRESSION: No acute finding in the abdomen or pelvis. No inflammatory change. Normal appendix. Fleischner guidelines were followed.
[2022-06-15 01:21] VITALS: BP 153/93; PULSE 103; RESP 20; TEMP 36.7; O2SAT 99; BMI 44.1
[2022-06-15 01:30] LABS: MANUAL DIFF FLAG NO
[2022-06-15 01:31] LABS: Basophils Percent Auto 0.3 % (0-2); Eosinophils Absolute Auto 0.2 X10*3/uL (0.0-0.4); Eosinophils Percent Auto 1.6 % (0-4); Hematocrit 41.2 % (37.0-47.0); Hemoglobin 13.8 g/dl (12.0-16.0); Imm Gran Abs Auto 0.06 X10*3/uL (0.00-0.03); Imm Gran Pct Auto 0.5 % (0.0-0.4); Lymphocytes Absolute Auto 4.4 X10*3/uL (1.2-4.9); Lymphocytes Percent Auto 36.3 % (20-40); Mean Corpuscular HGB Conc 33.5 g/dl (31.0-35.0); Mean Corpuscular Hemoglobin 27.2 pg (27.0-33.0); Mean Corpuscular Volume 81.1 fL (80.0-98.0); Mean Platelet Volume 10.1 fL (9.4-12.3); Neutrophils Absolute Auto 6.5 x10*3/uL (2.0-8.3); Neutrophils Percent Auto 53.3 % (45-73); Platelet Count 289 X10*3/uL (160-400); Red Blood Count 5.08 X10*6/uL (4.20-5.50); Red Cell Distribution Width 13.8 % (11.0-16.0); White Blood Count 12.1 X10*3/uL (4.8-10.8)
[2022-06-15 01:52] LABS: Alanine Aminotransferase 20 U/L (0-31); Albumin Level 4.4 g/dL (3.5-5.0); Alkaline Phosphatase 63 U/L (39-117); Anion Gap 15 (12-20); Aspartate Amino Transferase 17 U/L (5-31); Bilirubin Direct < 0.2 mg/dL (0.0-0.5); Bilirubin Total 0.3 mg/dL (0.0-1.0); Blood Urea Nitrogen 9 mg/dL (9-16); Calcium 9.3 mg/dL (8.4-10.2); Carbon Dioxide 23 mmol/L (22-29); Chloride 108 mmol/L (96-108); Creatinine Clr Calc Pharmacy 134.5; Estimated Glomerular Filt Rate > 60; Glucose Random 90 mg/dL (60-115); Lipase 68 U/L (8-78); Potassium 4.2 mmol/L (3.3-5.1); Sodium 142 mmol/L (135-145); Total Protein 7.4 g/dL (6.5-8.0)
[2022-06-15 03:29] LABS: HCG Quantitative < 2 mIU/mL
--- NOTE | 2022-06-15 04:40 | ED.ABDPAIN ---
HPI - Abdominal Pain General Chief Complaint: Abdominal Pain Stated Complaint: sharp pain in abdomen Time Seen by Provider: 06/15/22 03:05 Source: patient Mode of arrival: ambulatory Limitations: no limitations History of Present Illness HPI narrative: Patient comes to the emergency room complaining of sharp left lower quadrant pain and dysuria for approximately 24 hours. Patient states that she has not had any fever chills, denies hematuria. Patient reports that for approximately 2-3 months she has had intermittent vomiting and diarrhea. Related Data Previous Rx's Medication Instructions Recorded acetaminophen 500 mg tablet 500 mg PO Q6H PRN pain or fever 01/04/21 (Tylenol Extra Strength) #20 tabs lidocaine 5 % topical patch 1 patch topical DAILY PRN pain #30 01/04/21 (Lidoderm) ea uohmuflnpr-vjqtofpquomlj-joqjptix 1 cap PO Q6H PRN pain #20 caps 03/20/21 50 mg-300 mg-40 mg capsule (Fioricet) sumatriptan succinate 50 mg tablet See Rx Instructions PO .COMPLEX 03/20/21 (Imitrex) #10 tabs ibuprofen 600 mg tablet 600 mg PO Q6H PRN pain #20 tabs 12/14/21 cyclobenzaprine 10 mg tablet 5 mg PO TID PRN back pain 7 days 04/26/22 #21 tabs albuterol sulfate 90 mcg/actuation 2 puff inhalation QID PRN 05/06/22 aerosol inhaler (ProAir HFA) shortness of breath or wheezing #8.5 grams ketorolac 10 mg tablet 10 mg PO Q8H PRN pain #20 tabs 05/06/22 ondansetron 4 mg disintegrating 4 mg PO Q8H 3 days #9 tabs 05/06/22 tablet nitrofurantoin 100 mg PO Q12H 7 days #14 caps 06/15/22 monohydrate/macrocrystals 100 mg capsule (Macrobid) phenazopyridine 100 mg tablet 100 mg PO TID 6 doses #6 tabs 06/15/22 Allergies Allergy/AdvReac Type Severity Reaction Status Date / Time No Known Allergies Allergy Unverified 07/22/20 18:33 Review of Systems Review of Systems Constitutional : No Weight loss, No Fever, No Chills, No Night Sweats, No Fatigue, No Malaise ENT/Mouth : No Hearing loss, No Ear Pain, No Nasal Congestion, No Sinus Pain, No Hoarseness, No sore throat, No Rhinorrhea, No Swallowing Difficulty Eyes: No Eye Pain, No Swelling, No Redness, No Foreign Body, No Discharge, No Vision Changes Cardiovascular : No Chest Pain, No SOB, No Dyspnea on Exertion, No Orthopnea, No Edema, No Palpitations Respiratory : No Cough, No Sputum, No Wheezing, No Smoke Exposure, No Dyspnea Gastrointestinal : Intermittent nausea vomiting and diarrhea for 2-3 months No Constipation, complaining of sharp left lower quadrant pain, No Hematochezia, No Melena Genitourinary : no irregular bleeding, complaining of less than 24 hours of dysuria, No Urinary Frequency, No Hematuria, No Urinary Incontinence, No Urgency, No Flank Pain, No Urinary Flow Changes, No Hesitancy Musculoskeletal : No joint pain, No Myalgias, No Joint Swelling Skin : No Skin Lesions, No rash Neuro : No Weakness, No Numbness, No Paresthesias, No Loss of Consciousness, No Dizziness, No Headache Psych : No Anxiety/Panic, No Depression, No SI/HI/AH/VH, No Social Issues, Heme/Lymph: No Bruising, No Bleeding,No Lymphadenopathy Endocrine : No Polyuria, No Polydipsia, No Temperature Intolerance PMFSH Past Medical History Medical History Anxiety Migraines Scarlet fever Sciatic leg pain Surgical History H/O adenoidectomy Hx of tonsillectomy Social History Social History Advance Directives: No Advance Directives Information Provided: Yes Physical Exam ED Vital Signs: Vital Signs - 24 hr 06/15/22 01:21 Temperature 98.1 F Pulse Rate 103 H Respiratory Rate 20 Blood Pressure 153/93 H Pulse Oximetry 99 BMI result Body Mass Index 44.1 Const Other: Appearance: Alert. Oriented X3. No acute distress. Eyes: Pupils equal, round and reactive to light. Bilateral mydriasis Neck: Normal inspection. Neck supple. No lymph nodes noted. No crepitus CVS: Normal heart rate and rhythm. Pulses normal. Normal S1 and S2 Respiratory: No respiratory distress. Breath sounds normal. No Wheezing. No rales Abdomen: Soft and nontender. No rigidity. No distention. No CVA tenderness Skin: Skin warm and dry. Normal skin color. Normal skin turgor. Extremities: No lower extremity edema. No Lacerations. No Rash Neuro: Oriented X 3. No motor deficit. No sensory deficit. Moving all extremities. No slurred speech. CN 2 through 12 grossly intact Psych: calm, cooperative, normal affect Course Course Course Narrative: I discussed the CT scan with the patient, no acute findings. Urinalysis pending. Patient seems to have a mild UTI. Patient will be treated with antibiotic. Sepsis is not suspected MDM - Abdominal Pain Lab Data Result diagrams: 06/15/22 01:18 06/15/22 01:18 Labs: Lab Results 06/15/22 06/15/22 06/15/22 Range/Units 01:18 01:18 04:29 WBC 12.1 H (4.8-10.8) X10*3/uL RBC 5.08 (4.20-5.50) X10*6/uL Hgb 13.8 (12.0-16.0) g/dl Hct 41.2 (37.0-47.0) % MCV 81.1 (80.0-98.0) fL MCH 27.2 (27.0-33.0) pg MCHC 33.5 (31.0-35.0) g/dl RDW 13.8 (11.0-16.0) % Plt Count 289 (160-400) X10*3/uL MPV 10.1 (9.4-12.3) fL Immature Gran % (Auto) 0.5 H (0.0-0.4) % Neut % (Auto) 53.3 (45-73) % Lymph % (Auto) 36.3 (20-40) % [place] % (Auto) 8.0 (2-11) % Eos % (Auto) 1.6 (0-4) % Baso % (Auto) 0.3 (0-2) % Lymph # (Auto) 4.4 (1.2-4.9) X10*3/uL [place] # (Auto) 1.0 (0.1-1.2) X10*3/uL Eos # (Auto) 0.2 (0.0-0.4) X10*3/uL Baso # (Auto) 0.0 (0.0-0.2) X10*3/uL Abs Immat Gran (auto) 0.06 H (0.00-0.03) X10*3/uL Absolute Neuts (auto) 6.5 (2.0-8.3) x10*3/uL Absolute Nucleated RBC 0.000 (0.0-0.012) X10*3/uL Nucleated RBC % (auto) 0.0 (0.0-0.2) /100WBC Sodium 142 (135-145) mmol/L Potassium 4.2 (3.3-5.1) mmol/L Chloride 108 (96-108) mmol/L Carbon Dioxide 23 (22-29) mmol/L Anion Gap 15 (12-20) BUN 9 (9-16) mg/dL Creatinine 0.83 (0.5-1.4) mg/dL Estim Creat Clear Calc 134.5 Estimated GFR > 60 Random Glucose 90 (60-115) mg/dL Calcium 9.3 (8.4-10.2) mg/dL Total Bilirubin 0.3 (0.0-1.0) mg/dL Direct Bilirubin < 0.2 (0.0-0.5) mg/dL AST 17 (5-31) U/L ALT 20 (0-31) U/L Alkaline Phosphatase 63 (39-117) U/L Total Protein 7.4 (6.5-8.0) g/dL Albumin 4.4 (3.5-5.0) g/dL Lipase 68 (8-78) U/L Beta HCG, Quant < 2 mIU/mL Urine Color YELLOW Urine Appearance HAZY Urine pH 5.5 (5.0-8.0) Ur Specific [place] >= 1.030 H (1.005-1.025) Urine Protein NEG (NEG-TRACE) MG/DL Urine Glucose (UA) NEG (NEG) MG/DL Urine Ketones NEG (NEG) MG/DL Urine Blood NEG (NEG) Urine Nitrite NEG (NEG) Ur Leukocyte Esterase NEG (NEG) Urine RBC 0-2 (0) /HPF Urine WBC 5-9 H (0-4) /HPF Ur Squamous Epith Cells 2+ /LPF Urine Bacteria 2+ /LPF Hyaline Casts 0-2 /LPF Granular Casts 0-2 /LPF Urine Mucus 1+ /LPF Imaging Data CT scan - abdomen: Radiologist's impression: FINDINGS: LUNG BASES: The visualized lung bases are unremarkable.? LIVER, GALLBLADDER, AND BILIARY TREE: The liver is normal in size, shape, and attenuation. No focal hepatic lesion or biliary ductal dilatation is present. The gallbladder is unremarkable with no evidence of radiopaque gallstones, gallbladder wall thickening, or obvious pericholecystic inflammatory changes.? PANCREAS: Unremarkable.? SPLEEN: Unremarkable.? ADRENAL GLANDS: Unremarkable.? KIDNEYS AND URETERS: The kidneys are normal in size, shape, and attenuation. No hydronephrosis, hydroureter, or calculi seen. No perinephric stranding. ? BLADDER: Unremarkable.? GASTROINTESTINAL TRACT: The small and large bowel are unremarkable. The appendix is unremarkable.? ABDOMINAL WALL: No significant hernia is appreciated.? LYMPH NODES: Normal. VASCULAR: Unremarkable. PELVIC VISCERA: The uterus and adnexa are unremarkable.? OSSEOUS STRUCTURES: No acute or suspicious osseous abnormality.? CT/CT abdomen pelvis wo con IMPRESSION: No acute finding in the abdomen or pelvis. No inflammatory change. Normal appendix.? ? Fleischner guidelines were followed. Discharge Plan Discharge Clinical Impression: UTI (urinary tract infection) Patient Disposition: Home, Self-Care Instructions: Urinary Tract Infection in Women (ED) Additional Instructions: Please follow-up with your primary care physician tomorrow. If you have any worsening or new symptoms, please return to the emergency room or call 911 Prescriptions: New nitrofurantoin monohyd/m-cryst [Macrobid] 100 mg capsule 100 mg PO Q12H 7 Days Qty: 14 0RF Rx Instructions: must administer with a meal/food phenazopyridine 100 mg tablet 100 mg PO TID Qty: 6 0RF No Action acetaminophen [Tylenol Extra Strength] 500 mg tablet 500 mg PO Q6H PRN (Reason: pain or fever) Qty: 20 0RF lidocaine [Lidoderm] 5 % adhesive patch,medicated 1 patch topical DAILY MDD remove after 12 hours PRN (Reason: pain) Qty: 30 0RF Rx Instructions: leave on most painful area for up to 12 hrs sumatriptan succinate [Imitrex] 50 mg tablet See Rx Instructions .ROUTE .COMPLEX Qty: 10 0RF Rx Instructions: take 1 tab at onset of headache; if no relief may repeat 1 tab after at least 2 hrs; max = 2 tabs/24 hr jcvfenrpnu-yczhpvlgcmmqc-yuky [Fioricet] 50-300-40 mg capsule 1 cap PO Q6H PRN (Reason: pain) Qty: 20 0RF ibuprofen 600 mg tablet 600 mg PO Q6H PRN (Reason: pain) Qty: 20 0RF ondansetron 4 mg tablet,disintegrating 4 mg PO Q8H 3 Days Qty: 9 0RF albuterol sulfate [ProAir HFA] 90 mcg/actuation HFA aerosol inhaler 2 puff inhalation QID PRN (Reason: shortness of breath or wheezing) Qty: 8.5 0RF ketorolac 10 mg tablet 10 mg PO Q8H PRN (Reason: pain) Qty: 20 0RF cyclobenzaprine 10 mg tablet 5 mg PO TID PRN (Reason: back pain) 7 Days Qty: 21 0RF
[2022-06-15 04:53] LABS: Appearance Urine HAZY; Color Urine YELLOW; Glucose Urine UA NEG (NEG); Leukocyte Esterase Urine NEG (NEG); Nitrite Urine NEG (NEG); PH 5.5 (5.0-8.0); Specific Gravity - Urine >= 1.030 (1.005-1.025); Urine Blood NEG (NEG); Urine Ketones NEG (NEG); Urine Protein NEG (NEG-TRACE)
[2022-06-15 04:59] LABS: Bacteria Urine 2+ /LPF; RBC Urine 0-2 /HPF (0); Squamous Epithelial Cell Urine 2+ /LPF; UACC CULT YES
[2022-06-15 05:00] LABS: Granular Casts Urine 0-2 /LPF; Hyaline Casts Urine 0-2 /LPF; Mucus Urine 1+ /LPF
== END 2022-06-15 05:32 | disposition home or self-care (01) ==
PROVIDERS: Emergency Provider Emergency Medicine
DX: N39.0 Urinary tract infection, site not specified (principal); R10.32 Left lower quadrant pain
CPT/HCPCS: 36415; 74176; 80053; 81001; 82248; 83690; 84702; 85025; 87086; 99284

== ENCOUNTER 2022-06-25 11:39 | Emergency (ER) | payer OTHER, SELFPAY ==
--- NOTE | ~2022-06-25 | CT_ITS ---
EXAMINATION: CT ABDOMEN AND PELVIS WITHOUT CONTRAST CLINICAL INFORMATION: Back pain and costovertebral angle tenderness. COMPARISON: CT abdomen/pelvis 06/05/2022. TECHNIQUE: Multidetector volumetric imaging was performed from the superior aspect of the liver through the pubic symphysis. Sagittal and coronal reformatted images were obtained on the technologist's workstation. This CT examination was performed using dose optimization techniques as appropriate, variously including the following: *Automated exposure control *Adjustment of mA and/or kV according to patient size (this includes techniques or standardized protocols for targeted exams where dose is matched to indication/reason for exam; i.e. extremities or head) *Use of iterative reconstruction technique DLP: 1064 mGy-cm FINDINGS: LUNG BASES: The visualized lung bases are unremarkable. LIVER, GALLBLADDER, AND BILIARY TREE: The liver is enlarged measuring 20 cm craniocaudally and demonstrates decrease parenchymal attenuation suggesting the presence of hepatic steatosis. The liver is otherwise normal in shape without discrete focal abnormality on this limited noncontrast examination. Normal appearance of the gallbladder. No biliary ductal dilatation. PANCREAS: Equivocal very subtle peripancreatic fat stranding versus volume averaging. SPLEEN: Unremarkable. ADRENAL GLANDS: Unremarkable. KIDNEYS AND URETERS: The kidneys are normal in size, shape, and attenuation. No hydronephrosis, hydroureter, or calculi seen. No perinephric stranding. BLADDER: Unremarkable. GASTROINTESTINAL TRACT: The small and large bowel are unremarkable. The appendix is unremarkable. ABDOMINAL WALL: No significant hernia is appreciated. LYMPH NODES: Nonspecific prominent but subcentimeter short axis right lower quadrant mesenteric lymph nodes, uncertain significance. No lymphadenopathy by size criteria. VASCULAR: Unremarkable. PELVIC VISCERA: Unremarkable. OSSEOUS STRUCTURES: Unremarkable. CT/CT abdomen pelvis wo con IMPRESSION: Equivocal peripancreatic fat stranding versus volume averaging. Correlate with lipase/amylase levels for acute pancreatitis. Limited noncontrast examination of the kidneys with no hydronephrosis or nephrolithiasis. No perinephric fat stranding. However, it is important to note that evaluation of acute pyelonephritis is limited in the absence of intravenous contrast.
[2022-06-25 13:40] VITALS: BP 139/73; PULSE 88; RESP 16; TEMP 36.2; O2SAT 97; BMI 44.1
[2022-06-25 15:35] VITALS: BP 119/59; PULSE 65; RESP 18; TEMP 36.8; O2SAT 100
--- NOTE | 2022-06-25 15:49 | ED_ITS ---
HPI - Back Pain/Injury General Chief Complaint: Back Pain/Injury <ARTURO Parra - Last Filed: 06/25/22 17:35> Stated Complaint: Lower back pain <ARTURO Parra - Last Filed: 06/25/22 17:35> Time Seen by Provider: 06/25/22 15:40 <ARTURO Parra - Last Filed: 06/25/22 17:35> Source: patient <ARTURO Parra - Last Filed: 06/25/22 17:35> Mode of arrival: ambulatory <ARTURO Parra - Last Filed: 06/25/22 17:35> Limitations: no limitations <ARTURO Parra Last Filed: 06/25/22 17:35> History of Present Illness HPI Narrative: 22-year-old female with a past medical history of obesity, chronic back pain with sciatica, scarlet fever, migraine headaches, anxiety and COVID-19 presenting to the ED with complaints of bilateral lower back pain for the past 2 days worse today. 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 She reports that this is not feel like her normal chronic back pain/sciatica. She has been trying [id number] such as Motrin Tylenol no symptomatic relief along with ice and heat and stretching. She reports that she has been having some GI problems that she has been trying to reach her primary care provider about although she reports ?my primary care provider as not been doing anything much about my GI issues . She also reports she has been having diarrhea for the past 3 weeks. She reports she was recently seen here on 06/15/2022 and treated with antibiotics for UTI and reports she took as prescribed. She denies any fevers, chills, dizziness, headaches, neck pain/stiffness, trouble swallowing or breathing, chest pain or shortness of breath, dyspnea on exertion, cough, sore throat, worsening abdominal pain, flank pain, dysuria, hematuria, abnormal vaginal discharge, rashes, recent falls or trauma, IV drug use, recent surgery immobilization, history of cancer, recent travel or sick contacts or any other symptoms complaints or concerns at this time. <ARTURO Parra Last Filed: 06/25/22 17:35> MD elicited complaint: back pain <ARTURO Parra Last Filed: 06/25/22 17:35> Pertinent past history: prior back pain (And sciatica) <ARTURO Parra - Last Filed: 06/25/22 17:35> Onset (ago): day(s) (2) <ARTURO Parra - Last Filed: 06/25/22 17:35> Timing: constant and progressively worsening <ARTURO Parra - Last Filed: 06/25/22 17:35> Severity: moderate <ARTURO Parra - Last Filed: 06/25/22 17:35> Similar Symptoms Previously: Yes <ARTURO Parra - Last Filed: 06/25/22 17:35> Quality: aching <ARTURO Parra - Last Filed: 06/25/22 17:35> Location: lumbar spine, right lower back and left lower back <ARTURO Parra - Last Filed: 06/25/22 17:35> Radiation: none <ARTURO Parra - Last Filed: 06/25/22 17:35> Exacerbating factors: movement, walking and lifting <ARTURO Parra - Last Filed: 06/25/22 17:35> Relieving factors: none <ARTURO Parra - Last Filed: 06/25/22 17:35> Context: unknown <ARTURO Parra - Last Filed: 06/25/22 17:35> Related Data Home Medications: Previous Rx's Medication Instructions Recorded acetaminophen 500 mg tablet 500 mg PO Q6H PRN pain or fever 01/04/21 (Tylenol Extra Strength) #20 tabs lidocaine 5 % topical patch 1 patch topical DAILY PRN pain #30 01/04/21 (Lidoderm) ea ezdjpezwxn-poaihovwddnod-yzkmebuu 1 cap PO Q6H PRN pain #20 caps 03/20/21 50 mg-300 mg-40 mg capsule (Fioricet) sumatriptan succinate 50 mg tablet See Rx Instructions PO .COMPLEX 03/20/21 (Imitrex) #10 tabs ibuprofen 600 mg tablet 600 mg PO Q6H PRN pain #20 tabs 12/14/21 cyclobenzaprine 10 mg tablet 5 mg PO TID PRN back pain 7 days 06/22/22 #21 tabs albuterol sulfate 90 mcg/actuation 2 puff inhalation QID PRN 05/06/22 aerosol inhaler (ProAir HFA) shortness of breath or wheezing #8.5 grams ketorolac 10 mg tablet 10 mg PO Q8H PRN pain #20 tabs 05/06/22 ondansetron 4 mg disintegrating 4 mg PO Q8H 3 days #9 tabs 05/06/22 tablet nitrofurantoin 100 mg PO Q12H 7 days #14 caps 06/15/22 monohydrate/macrocrystals 100 mg capsule (Macrobid) phenazopyridine 100 mg tablet 100 mg PO TID 6 doses #6 tabs 06/15/22 cefuroxime axetil 250 mg tablet 250 mg PO BID 7 days #14 tabs 06/25/22 cyclobenzaprine 10 mg tablet 10 mg PO Q8H PRN Muscle spasm #14 06/25/22 tabs ketorolac 10 mg tablet 10 mg PO Q8H PRN pain #14 tabs 06/25/22 <ARTURO Parra - Last Filed: 06/25/22 17:35> Allergies/Adverse Reactions: Allergies Allergy/AdvReac Type Severity Reaction Status Date / Time No Known Allergies Allergy Unverified 07/22/20 18:33 <ARTURO Parra - Last Filed: 06/25/22 17:35> Review of Systems Review of Systems: Constitutional : No trauma, No Weight loss, No Fever, No Chills, ENT/Mouth : No Hearing loss, No Ear Pain, No Nasal Congestion, No Sinus Pain, No Hoarseness, No sore throat, No Rhinorrhea, No Swallowing Difficulty Cardiovascular : No Chest Pain, No SOB Respiratory : No Cough, No Dyspnea Gastrointestinal : No Nausea, No Vomiting, + Diarrhea, + abdominal Pain, No Hematochezia, No Melena Genitourinary : No Dysuria, No Urinary Frequency, No Hematuria, No Urinary or Bowel Incontinence/retention Musculoskeletal : + Back pain, No neck pain, No joint stiffness, No joint swelling Skin : No Skin Lesions, No rash or signs of infection Neuro : No Weakness, No radiation, No Numbness, No Paresthesias, No headache, no loss of bowel or bladder incontinence, no saddle anesthesia, Focal weakness, No radiation Denies history of IV drug usage. <ARTURO Parra - Last Filed: 06/25/22 17:35> Yes all other systems are reviewed and are negative <ARTURO Parra - Last Filed: 06/25/22 17:35> [facility] Past Medical History Attestation statement: The following information was validated with the patient. <ARTURO Parra - Last Filed: 06/25/22 17:35> Source: old records reviewed and nursing notes reviewed <ARTURO Parra - Last Filed: 06/25/22 17:35> Medical History: Medical History Anxiety Migraines Scarlet fever Sciatic leg pain <ARTURO Parra - Last Filed: 06/25/22 17:35> Surgical History: Surgical History H/O adenoidectomy Hx of tonsillectomy <ARTURO Parra - Last Filed: 06/25/22 17:35> Social History Social History: Social History Advance Directives: No Advance Directives Information Provided: No <ARTURO Parra - Last Filed: 06/25/22 17:35> Physical Exam 2 Vital Signs: Vital Signs: Last Vital Signs Temp 98.2 F 06/25/22 15:35 Pulse 65 06/25/22 15:35 Resp 18 06/25/22 15:35 BP 119/59 L 06/25/22 15:35 Pulse Ox 100 06/25/22 15:35 O2 Del Method 06/25/22 15:35 BMI result Body Mass Index 44.1 vital signs have been reviewed as normal and appeared to be correct. Blood pressure normal. Heart rate normal. Respiration rate normal. Temperature normal. Oxygen saturation normal. <ARTURO Parra - Last Filed: 06/25/22 17:35> Vital Signs: Last Vital Signs Temp 98.2 F 06/25/22 15:35 Pulse 65 06/25/22 15:35 Resp 18 06/25/22 15:35 BP 119/59 L 06/25/22 15:35 Pulse Ox 100 06/25/22 15:35 O2 Del Method 06/25/22 15:35 BMI result Body Mass Index 44.1 <ARTURO Marquis - Last Filed: 07/06/22 09:31> Appearance: Alert. Oriented X3. No acute distress. Head: Normal external exam. Normocephalic. Atraumatic. Eyes: PERRLA. EOMI. Conjunctiva and sclera normal. Eyelids normal. ENT: EAC normal. TM's Normal. Pharynx normal. Uvula midline. Moist mucous membranes. No trismus noted. No drooling noted. No muffled voice noted. Neck: Normal inspection. Neck supple. FROM. No adenopathy. Thyroid Normal. No meningeal signs. No neck mass noted. CVS: Normal heart rate and rhythm. Heart sound normal. No murmurs noted. Pulses normal throughout. Respiratory: No respiratory distress. Painless inspiration. Breath sounds normal. No wheezes/rales/rhonchi noted. Chest nontender. No accessory muscle usage noted or decreased air movement noted. Abdomen: Soft and mild tenderness diffusely. Bowel sounds normal in all 4 quadrants. No distention noted. No organomegaly noted. No visible injury noted. Back: + bilateral CVA tenderness. Full range of motion noted. No obvious deformities, or edema. Mild para-spinal muscular tenderness from lumbar region to coccyx. Full ROM in back and lower extremities. 5/5 strength hip extension/flexion, abduction, adduction. Mild Lumbar pain with hip flexion against resistance. Straight leg raise test negative on right; Straight leg raise test negative on left; Reflexes normal ankle and knee bilaterally; EHL motor strength normal bilaterally. No rashes/lesion/induration/fluctuance or signs infection noted. Skin: Skin warm and dry. Normal skin color. Normal skin turgor. No rashes/lesions/lacerations noted. Extremities: No lower extremity edema. No calf tenderness is noted. Extremities exhibit normal range of motion. Extremities nontender. Neuro: Oriented X 3. No motor deficit. No sensory deficit. Reflexes normal. Patient has a normal steady gait. <ARTURO Parra - Last Filed: 06/25/22 17:35> Course Course Course Narrative: 16pm Pt c likely muscular pain, but could be herniated disc. Neuro exam shows no deficits. Not c/w AAA/epidural abscess/dissection.No high risk Hx (Incont, fever, immunosupp, recent surgery/LP, coag, signif trauma, wt loss, puls mass, hx/o Ca, TB, or IVDU) to warrant MRI/CT today. Not c/w spinal fx. Not cauda equina syndrome. Although due to patient reporting abdominal pain, diarrhea recent be treating for UTI and not feeling like her normal sciatica will obtain labs, CT scan of abdomen pelvis without IV contrast and UA. Then provide 60 mg of IM Toradol and re-evaluate. <ARTURO Parra - Last Filed: 06/25/22 17:35> Reevaluation(s) Reevaluation #1: - labs returned and patient's BUN 7. Otherwise all other labs are within normal limits. Serum quant negative for . UA revealed UTI therefore will send Ceftin to the pharmacy. At this time sign out to YADIRA Dudley pending CT scan abdomen pelvis without IV contrast if negative patient can be discharged I ready sent Toradol/Flexeril/prednisone and Ceftin to the pharmacy. <ARTURO Parra - Last Filed: 06/25/22 17:35> Time: 17:34 <ARTURO Parra - Last Filed: 06/25/22 17:35> Reevaluation #2: CT scan states possible pancreatitis vs volume averaging and evaluate with lipase/amylase and evaluate patient. Patient was re-evaluated by myself and denies ever having any abdominal pain. Patient states she only came to the ED for lower back pain. Patient denies any vomiting or loss of appetite. Clinically do not suspect acute pancreatitis. Lipase normal. Patient informed to follow-up with primary care provider. Patient passed p.o. challenge. Patient states she cannot take prednisone due to severe reaction. Prednisone ordered cancelled. <ARTURO Maqruis - Last Filed: 07/06/22 09:31> Time: 18:37 <ARTURO Marquis Last Filed: 07/06/22 09:31> MDM - Back Pain/Injury Medical Records Attestation: I reviewed the patient's medical records. <ARTURO Parra Last Filed: 06/25/22 17:35> Lab Data Attestation: I reviewed the patient's lab results. <ARTURO Parra Last Filed: 06/25/22 17:35> Result diagrams: : 06/25/22 16:24 06/25/22 16:24 <ARTURO Parra - Last Filed: 06/25/22 17:35> Labs: Lab Results 06/25/22 06/25/22 06/25/22 Range/Units 16:24 16:24 16:24 WBC 10.3 (4.8-10.8) X10*3/uL RBC 5.22 (4.20-5.50) X10*6/uL Hgb 14.1 (12.0-16.0) g/dl Hct 42.6 (37.0-47.0) % MCV 81.6 (80.0-98.0) fL MCH 27.0 (27.0-33.0) pg MCHC 33.1 (31.0-35.0) g/dl RDW 13.6 (11.0-16.0) % Plt Count 298 (160-400) X10*3/uL MPV 9.8 (9.4-12.3) fL Immature Gran % (Auto) 0.6 H (0.0-0.4) % Neut % (Auto) 52.9 (45-73) % Lymph % (Auto) 36.1 (20-40) % [place] % (Auto) 8.2 (2-11) % Eos % (Auto) 1.9 (0-4) % Baso % (Auto) 0.3 (0-2) % Lymph # (Auto) 3.7 (1.2-4.9) X10*3/uL [place] # (Auto) 0.8 (0.1-1.2) X10*3/uL Eos # (Auto) 0.2 (0.0-0.4) X10*3/uL Baso # (Auto) 0.0 (0.0-0.2) X10*3/uL Abs Immat Gran (auto) 0.06 H (0.00-0.03) X10*3/uL Absolute Neuts (auto) 5.4 (2.0-8.3) x10*3/uL Absolute Nucleated RBC 0.000 (0.0-0.012) X10*3/uL Nucleated RBC % (auto) 0.0 (0.0-0.2) /100WBC Sodium 139 (135-145) mmol/L Potassium 3.9 (3.3-5.1) mmol/L Chloride 107 (96-108) mmol/L Carbon Dioxide 23 (22-29) mmol/L Anion Gap 13 (12-20) BUN 7 L (9-16) mg/dL Creatinine 0.70 (0.5-1.4) mg/dL Estim Creat Clear Calc 159.4 Estimated GFR > 60 Random Glucose 93 (60-115) mg/dL Calcium 9.3 (8.4-10.2) mg/dL Magnesium 1.9 (1.6-2.6) mg/dL Total Bilirubin 0.2 (0.0-1.0) mg/dL AST 15 (5-31) U/L ALT 25 (0-31) U/L Alkaline Phosphatase 61 (39-117) U/L Lactate Dehydrogenase 186 (122-220) U/L Total Protein 7.2 (6.5-8.0) g/dL Albumin 4.2 (3.5-5.0) g/dL Triglycerides 267 mg/dL Cholesterol 137 mg/dL LDL Cholesterol, Calc 54 mg/dl HDL Cholesterol 30 mg/dL Amylase 61 (28-100) U/L Lipase 77 (8-78) U/L Beta HCG, Quant < 2 mIU/mL Urine Color Yellow Urine Appearance Clear Urine pH 6.0 (5.0-8.0) Ur Specific [place] 1.020 (1.005-1.025) Urine Protein Negative (Neg-Trace) mg/dL Urine Glucose (UA) Negative (Negative) mg/dL Urine Ketones Negative (Negative) mg/dL Urine Blood Negative (Negative) Urine Nitrite Negative (Negative) Ur Leukocyte Esterase Small (1+) H (Negative) Urine RBC 0-2 (0-2) /HPF Urine WBC 6-10 H (0-5) /HPF Ur Squamous Epith Cells 11-20 (0-2) /HPF Urine Bacteria 1+ (None Seen) Hyaline Casts 0-2 (0-2) /LPF <ARTURO Parra - Last Filed: 06/25/22 17:35> Lab Results 06/25/22 06/25/22 06/25/22 Range/Units 16:24 16:24 16:24 WBC 10.3 (4.8-10.8) X10*3/uL RBC 5.22 (4.20-5.50) X10*6/uL Hgb 14.1 (12.0-16.0) g/dl Hct 42.6 (37.0-47.0) % MCV 81.6 (80.0-98.0) fL MCH 27.0 (27.0-33.0) pg MCHC 33.1 (31.0-35.0) g/dl RDW 13.6 (11.0-16.0) % Plt Count 298 (160-400) X10*3/uL MPV 9.8 (9.4-12.3) fL Immature Gran % (Auto) 0.6 H (0.0-0.4) % Neut % (Auto) 52.9 (45-73) % Lymph % (Auto) 36.1 (20-40) % [place] % (Auto) 8.2 (2-11) % Eos % (Auto) 1.9 (0-4) % Baso % (Auto) 0.3 (0-2) % Lymph # (Auto) 3.7 (1.2-4.9) X10*3/uL [place] # (Auto) 0.8 (0.1-1.2) X10*3/uL Eos # (Auto) 0.2 (0.0-0.4) X10*3/uL Baso # (Auto) 0.0 (0.0-0.2) X10*3/uL Abs Immat Gran (auto) 0.06 H (0.00-0.03) X10*3/uL Absolute Neuts (auto) 5.4 (2.0-8.3) x10*3/uL Absolute Nucleated RBC 0.000 (0.0-0.012) X10*3/uL Nucleated RBC % (auto) 0.0 (0.0-0.2) /100WBC Sodium 139 (135-145) mmol/L Potassium 3.9 (3.3-5.1) mmol/L Chloride 107 (96-108) mmol/L Carbon Dioxide 23 (22-29) mmol/L Anion Gap 13 (12-20) BUN 7 L (9-16) mg/dL Creatinine 0.70 (0.5-1.4) mg/dL Estim Creat Clear Calc 159.4 Estimated GFR > 60 Random Glucose 93 (60-115) mg/dL Calcium 9.3 (8.4-10.2) mg/dL Magnesium 1.9 (1.6-2.6) mg/dL Total Bilirubin 0.2 (0.0-1.0) mg/dL AST 15 (5-31) U/L ALT 25 (0-31) U/L Alkaline Phosphatase 61 (39-117) U/L Lactate Dehydrogenase 186 (122-220) U/L Total Protein 7.2 (6.5-8.0) g/dL Albumin 4.2 (3.5-5.0) g/dL Triglycerides 267 mg/dL Cholesterol 137 mg/dL LDL Cholesterol, Calc 54 mg/dl HDL Cholesterol 30 mg/dL Amylase 61 (28-100) U/L Lipase 77 (8-78) U/L Beta HCG, Quant < 2 mIU/mL Urine Color Yellow Urine Appearance Clear Urine pH 6.0 (5.0-8.0) Ur Specific [place] 1.020 (1.005-1.025) Urine Protein Negative (Neg-Trace) mg/dL Urine Glucose (UA) Negative (Negative) mg/dL Urine Ketones Negative (Negative) mg/dL Urine Blood Negative (Negative) Urine Nitrite Negative (Negative) Ur Leukocyte Esterase Small (1+) H (Negative) Urine RBC 0-2 (0-2) /HPF Urine WBC 6-10 H (0-5) /HPF Ur Squamous Epith Cells 11-20 (0-2) /HPF Urine Bacteria 1+ (None Seen) Hyaline Casts 0-2 (0-2) /LPF <ARTURO Marquis - Last Filed: 07/06/22 09:31> Discharge Plan Discharge Clinical Impression: UTI (urinary tract infection) <ARTURO Parra - Last Filed: 06/25/22 17:35> Patient Disposition: Home, Self-Care <ARTURO Parra - Last Filed: 06/25/22 17:35> Instructions: Urinary Tract Infection in Women (ED) <ARTURO Parra - Last Filed: 06/25/22 17:35> Additional Instructions: Return to the ED for any abdominal pain, nausea, vomiting, flank pain, fever, chills, dysuria, hematuria, urinary/bowel incontinence, paralysis of low er extremities, or any other concerning symptoms. Please follow-up with primary care provider <ARTURO Parra - Last Filed: 06/25/22 17:35> Prescriptions: New cefuroxime axetil 250 mg tablet 250 mg PO BID 7 Days Qty: 14 0RF ketorolac 10 mg tablet 10 mg PO Q8H PRN (Reason: pain) Qty: 14 0RF cyclobenzaprine 10 mg tablet 10 mg PO Q8H PRN (Reason: Muscle spasm) Qty: 14 0RF No Action acetaminophen [Tylenol Extra Strength] 500 mg tablet 500 mg PO Q6H PRN (Reason: pain or fever) Qty: 20 0RF lidocaine [Lidoderm] 5 % adhesive patch,medicated 1 patch topical DAILY MDD remove after 12 hours PRN (Reason: pain) Qty: 30 0RF Rx Instructions: leave on most painful area for up to 12 hrs sumatriptan succinate [Imitrex] 50 mg tablet See Rx Instructions .ROUTE .COMPLEX Qty: 10 0RF Rx Instructions: take 1 tab at onset of headache; if no relief may repeat 1 tab after at least 2 hrs; max = 2 tabs/24 hr [id number]-[id number]-avny [Fioricet] 50-300-40 mg capsule 1 cap PO Q6H PRN (Reason: pain) Qty: 20 0RF ibuprofen 600 mg tablet 600 mg PO Q6H PRN (Reason: pain) Qty: 20 0RF ondansetron 4 mg tablet,disintegrating 4 mg PO Q8H 3 Days Qty: 9 0RF albuterol sulfate [ProAir HFA] 90 mcg/actuation HFA aerosol inhaler 2 puff inhalation QID PRN (Reason: shortness of breath or wheezing) Qty: 8.5 0RF ketorolac 10 mg tablet 10 mg PO Q8H PRN (Reason: pain) Qty: 20 0RF cyclobenzaprine 10 mg tablet 5 mg PO TID PRN (Reason: back pain) 7 Days Qty: 21 0RF nitrofurantoin monohyd/m-cryst [Macrobid] 100 mg capsule 100 mg PO Q12H 7 Days Qty: 14 0RF Rx Instructions: must administer with a meal/food phenazopyridine 100 mg tablet 100 mg PO TID Qty: 6 0RF <ARTURO Parra - Last Filed: 06/25/22 17:35> Referrals: Yajaira Keating [Primary Care Provider] - 2 days <ARTURO Parra - Last Filed: 06/25/22 17:35> Stand Alone Forms: Work/School Release <ARTURO Parra - Last Filed: 06/25/22 17:35> Interventions: ED Discharge Assessment Last Done: 06/25/22 18:56 <ARTURO Parra - Last Filed: 06/25/22 17:35> Discharge Date/Time: 06/25/22 18:56 <ARTURO Parra - Last Filed: 06/25/22 17:35> Print Language: Macedonian <ARTURO Parra - Last Filed: 06/25/22 17:35>
[2022-06-25] MEDS: Ketorolac Tromethamine 60 MG/2 ML VIAL IM (16:30)
[2022-06-25 16:34] LABS: Basophils Percent Auto 0.3 % (0-2); Eosinophils Absolute Auto 0.2 X10*3/uL (0.0-0.4); Eosinophils Percent Auto 1.9 % (0-4); Hematocrit 42.6 % (37.0-47.0); Hemoglobin 14.1 g/dl (12.0-16.0); Imm Gran Abs Auto 0.06 X10*3/uL (0.00-0.03); Imm Gran Pct Auto 0.6 % (0.0-0.4); Lymphocytes Absolute Auto 3.7 X10*3/uL (1.2-4.9); Lymphocytes Percent Auto 36.1 % (20-40); MANUAL DIFF FLAG NO; Mean Corpuscular HGB Conc 33.1 g/dl (31.0-35.0); Mean Corpuscular Volume 81.6 fL (80.0-98.0); Mean Platelet Volume 9.8 fL (9.4-12.3); Monocytes Absolute Auto 0.8 X10*3/uL (0.1-1.2); Monocytes Percent Auto 8.2 % (2-11); Neutrophils Absolute Auto 5.4 x10*3/uL (2.0-8.3); Neutrophils Percent Auto 52.9 % (45-73); Platelet Count 298 X10*3/uL (160-400); Red Blood Count 5.22 X10*6/uL (4.20-5.50); Red Cell Distribution Width 13.6 % (11.0-16.0); White Blood Count 10.3 X10*3/uL (4.8-10.8)
[2022-06-25 16:35] LABS: Appearance Urine Clear; Color Urine Yellow; Glucose Urine UA Negative (Negative); Leukocyte Esterase Urine Small (1+) (Negative); Nitrite Urine Negative (Negative); Urine Blood Negative (Negative); Urine Ketones Negative (Negative); Urine Protein Negative (Neg-Trace)
[2022-06-25 16:37] LABS: Bacteria Urine 1+ (None Seen); Hyaline Casts Urine 0-2 /LPF (0-2); RBC Urine 0-2 /HPF (0-2); UACC Culture Trigger YES
[2022-06-25 16:52] LABS: Alanine Aminotransferase 25 U/L (0-31); Albumin Level 4.2 g/dL (3.5-5.0); Alkaline Phosphatase 61 U/L (39-117); Anion Gap 13 (12-20); Aspartate Amino Transferase 15 U/L (5-31); Bilirubin Total 0.2 mg/dL (0.0-1.0); Blood Urea Nitrogen 7 mg/dL (9-16); Calcium 9.3 mg/dL (8.4-10.2); Carbon Dioxide 23 mmol/L (22-29); Chloride 107 mmol/L (96-108); Creatinine Clr Calc Pharmacy 159.4; Estimated Glomerular Filt Rate > 60; Glucose Random 93 mg/dL (60-115); Magnesium 1.9 mg/dL (1.6-2.6); Potassium 3.9 mmol/L (3.3-5.1); Sodium 139 mmol/L (135-145); Total Protein 7.2 g/dL (6.5-8.0)
[2022-06-25 16:59] LABS: HCG Quantitative < 2 mIU/mL
[2022-06-25 18:06] LABS: Amylase 61 U/L (28-100); Cholesterol 137 mg/dL; HDL Cholesterol 30 mg/dL; LDL Cholesterol Calculated 54 mg/dl; Lactate Dehydrogenase 186 U/L (122-220); Lipase 77 U/L (8-78); Triglycerides 267 mg/dL
== END 2022-06-25 18:56 | disposition home or self-care (01) ==
PROVIDERS: Physician Assistant Medical; Emergency Provider Emergency Medicine; PCP Optometrist
DX: M54.42 Lumbago with sciatica, left side (principal); M54.41 Lumbago with sciatica, right side; R10.9 Unspecified abdominal pain; Z79.899 Other long term (current) drug therapy
CPT/HCPCS: 36415; 74176; 80053; 80061; 81001; 82150; 83615; 83690; 83735; 84702; 85025; 87086; 99283; J1885

== ENCOUNTER 2022-07-31 14:06 | Emergency (ER) | payer OTHER, SELFPAY ==
--- NOTE | ~2022-07-31 | CT_ITS ---
EXAMINATION: CT ABDOMEN AND PELVIS WITHOUT CONTRAST CLINICAL INFORMATION: Abdominal pain COMPARISON: 2 CT scans of the abdomen and pelvis this past month on 06/15/2022 and 06/25/2022 TECHNIQUE: Multidetector volumetric imaging was performed from the superior aspect of the liver through the pubic symphysis. Sagittal and coronal reformatted images were obtained on the technologist's workstation. This CT examination was performed using dose optimization techniques as appropriate, variously including the following: *Automated exposure control *Adjustment of mA and/or kV according to patient size (this includes techniques or standardized protocols for targeted exams where dose is matched to indication/reason for exam; i.e. extremities or head) *Use of iterative reconstruction technique DLP: 1032 mGy-cm FINDINGS: LUNG BASES: The visualized lung bases are unremarkable. LIVER, GALLBLADDER, AND BILIARY TREE: The liver is mildly enlarged at 18.8 cm in greatest cephalocaudad dimension with normal shape but with slightly decreased attenuation suggesting hepatic steatosis. No focal hepatic lesion or biliary ductal dilatation is present. The gallbladder is unremarkable with no evidence of radiopaque gallstones, gallbladder wall thickening, or obvious pericholecystic inflammatory changes. PANCREAS: Unremarkable. SPLEEN: Spleen mild enlarged at 13 cm in maximal transverse dimension ADRENAL GLANDS: Unremarkable. KIDNEYS AND URETERS: The kidneys are normal in size, shape, and attenuation. No hydronephrosis, hydroureter, or calculi seen. No perinephric stranding. BLADDER: Unremarkable. GASTROINTESTINAL TRACT: The small and large bowel are unremarkable aside from a few scattered colonic diverticula. The appendix is unremarkable. ABDOMINAL WALL: No significant hernia is appreciated. LYMPH NODES: Few tiny retroperitoneal lymph nodes are seen but there is no adenopathy VASCULAR: Unremarkable. PELVIC VISCERA: Unremarkable OSSEOUS STRUCTURES: There is grade 1 retrolisthesis of L5 on S1. CT/CT abdomen pelvis wo IV con IMPRESSION: An etiology causing the patient's chronic abdominal pain has not been found. Incidental note made of an enlarged probably fatty liver with mild splenomegaly and a few scattered colonic diverticula without diverticulitis. Fleischner guidelines were followed.
[2022-07-31 16:04] LABS: MANUAL DIFF FLAG NO
[2022-07-31 16:05] LABS: Basophils Absolute Auto 0.1 X10*3/uL (0.0-0.2); Basophils Percent Auto 0.5 % (0-2); Eosinophils Absolute Auto 0.2 X10*3/uL (0.0-0.4); Eosinophils Percent Auto 1.5 % (0-4); Hematocrit 43.5 % (37.0-47.0); Hemoglobin 14.2 g/dl (12.0-16.0); Imm Gran Abs Auto 0.06 X10*3/uL (0.00-0.03); Imm Gran Pct Auto 0.5 % (0.0-0.4); Lymphocytes Absolute Auto 3.7 X10*3/uL (1.2-4.9); Lymphocytes Percent Auto 33.4 % (20-40); Mean Corpuscular HGB Conc 32.6 g/dl (31.0-35.0); Mean Corpuscular Hemoglobin 27.3 pg (27.0-33.0); Mean Corpuscular Volume 83.7 fL (80.0-98.0); Monocytes Percent Auto 8.7 % (2-11); Neutrophils Absolute Auto 6.1 x10*3/uL (2.0-8.3); Neutrophils Percent Auto 55.4 % (45-73); Platelet Count 307 X10*3/uL (160-400); Red Cell Distribution Width 13.7 % (11.0-16.0); White Blood Count 11.1 X10*3/uL (4.8-10.8)
[2022-07-31 16:23] LABS: Alanine Aminotransferase 21 U/L (0-31); Albumin Level 4.4 g/dL (3.5-5.0); Alkaline Phosphatase 61 U/L (39-117); Anion Gap 15 (12-20); Aspartate Amino Transferase 18 U/L (5-31); Bilirubin Total 0.2 mg/dL (0.0-1.0); Blood Urea Nitrogen 8 mg/dL (9-16); Calcium 9.6 mg/dL (8.4-10.2); Carbon Dioxide 22 mmol/L (22-29); Chloride 106 mmol/L (96-108); Estimated Glomerular Filt Rate > 60; Glucose Random 90 mg/dL (60-115); Magnesium 2.3 mg/dL (1.6-2.6); Potassium 4.5 mmol/L (3.3-5.1); Sodium 138 mmol/L (135-145); Total Protein 7.5 g/dL (6.5-8.0)
[2022-07-31 16:33] VITALS: BP 144/75; PULSE 87; RESP 18; TEMP 36.9; O2SAT 99; BMI 44.6
[2022-07-31 17:47] LABS: Lipase 67 U/L (8-78)
[2022-07-31 18:02] LABS: Bilirubin Direct < 0.2 mg/dL (0.0-0.5)
--- NOTE | 2022-07-31 23:08 | ED_ITS ---
HPI - Abdominal Pain General Chief Complaint: Abdominal Pain <ARTURO Parra Last Filed: 08/01/22 00:48> Stated Complaint: blood in stools <ARTURO Parra Last Filed: 08/01/22 00:48> Time Seen by Provider: 07/31/22 15:14 <ARTURO Parra Last Filed: 08/01/22 00:48> Source: patient <ARTURO Parra Last Filed: 08/01/22 00:48> Mode of arrival: ambulatory <ARTURO Parra Last Filed: 08/01/22 00:48> Limitations: no limitations <ARTURO Parra Last Filed: 08/01/22 00:48> History of Present Illness HPI narrative: 22 female presenting with abdominal pain, and blood in her stool. She reports that last night while having a bowel movement she filled the toilet with blood. She reports her last BM was this afternoon, and she did not notice any blood. She currently endorses abdominal pain for the past few months and dizziness. She denies any weight loss, fever, and vomiting. She reports she is currently having a migraine, and request pain medication. Of note the patient reports a possible exposure to Trichomoniasis and requested a test. She reports that she was recently seen by her primary care provider and had bacterial vaginosis, gonorrhea chlamydia, syphilis, herpes and although they did not do a Trichomonas test and this is a test she wants. She reports she was negative for all other tests that she had. <ARTURO Parra Last Filed: 08/01/22 00:48> MD elicited complaint: abdominal pain <ARTURO Parra Last Filed: 08/01/22 00:48> Onset (ago): hour(s) <ARTURO Parra Last Filed: 08/01/22 00:48> Pain Consistency: intermittent <ARTURO Parra Last Filed: 08/01/22 00:48> Location: diffuse <ARTURO Parra Last Filed: 08/01/22 00:48> Quality: cramping <ARTURO Parra Last Filed: 08/01/22 00:48> Radiation: none <ARTURO Parra Last Filed: 08/01/22 00:48> Exacerbating factors: nothing <ARTURO Parra - Last Filed: 08/01/22 00:48> Relieving factors: nothing <ARTURO Parra - Last Filed: 08/01/22 00:48> Associated symptoms: nausea and hematochezia <ARTURO Parra - Last Filed: 08/01/22 00:48> Related Data Home Medications: Previous Rx's Medication Instructions Recorded acetaminophen 500 mg tablet 500 mg PO Q6H PRN pain or fever 01/04/21 (Tylenol Extra Strength) #20 tabs lidocaine 5 % topical patch 1 patch topical DAILY PRN pain #30 01/04/21 (Lidoderm) ea miyqhoedqh-reonivgrkollb-kmygsvjy 1 cap PO Q6H PRN pain #20 caps 03/20/21 50 mg-300 mg-40 mg capsule (Fioricet) sumatriptan succinate 50 mg tablet See Rx Instructions PO .COMPLEX 03/20/21 (Imitrex) #10 tabs ibuprofen 600 mg tablet 600 mg PO Q6H PRN pain #20 tabs 12/14/21 cyclobenzaprine 10 mg tablet 5 mg PO TID PRN back pain 7 days 04/26/22 #21 tabs albuterol sulfate 90 mcg/actuation 2 puff inhalation QID PRN 05/06/22 aerosol inhaler (ProAir HFA) shortness of breath or wheezing #8.5 grams ketorolac 10 mg tablet 10 mg PO Q8H PRN pain #20 tabs 05/06/22 ondansetron 4 mg disintegrating 4 mg PO Q8H 3 days #9 tabs 05/06/22 tablet nitrofurantoin 100 mg PO Q12H 7 days #14 caps 06/15/22 monohydrate/macrocrystals 100 mg capsule (Macrobid) phenazopyridine 100 mg tablet 100 mg PO TID 6 doses #6 tabs 06/15/22 cefuroxime axetil 250 mg tablet 250 mg PO BID 7 days #14 tabs 06/25/22 cyclobenzaprine 10 mg tablet 10 mg PO Q8H PRN Muscle spasm #14 06/25/22 tabs ketorolac 10 mg tablet 10 mg PO Q8H PRN pain #14 tabs 06/25/22 metronidazole 500 mg tablet 500 mg PO Q8H 7 days #21 tabs 08/03/22 <ARTURO Parra - Last Filed: 08/01/22 00:48> Allergies/Adverse Reactions: Allergies Allergy/AdvReac Type Severity Reaction Status Date / Time No Known Allergies Allergy Unverified 07/22/20 18:33 <ARTURO Parra Last Filed: 08/01/22 00:48> Review of Systems Review of Systems Constitutional : No Weight loss, No Fever, No Chills, No Night Sweats, No Fatigue, No Malaise ENT/Mouth : No Hearing loss, No Ear Pain, No Nasal Congestion, No Sinus Pain, No Hoarseness, No sore throat, No Rhinorrhea, No Swallowing Difficulty Eyes: No Eye Pain, No Swelling, No Redness, No Foreign Body, No Discharge, No Vision Changes Cardiovascular : No Chest Pain, No SOB, No Dyspnea on Exertion, No Orthopnea, No Edema, No Palpitations Respiratory : No Cough, No Sputum, No Wheezing, No Smoke Exposure, No Dyspnea Gastrointestinal :+ Nausea, No Vomiting, + loose stools, No Constipation, + lateral abdominal Pain, + Hematochezia, No Melena Genitourinary : no irregular bleeding, No Dysuria, No Urinary Frequency, No Hematuria, No Urinary Incontinence, No Urgency, No Flank Pain, No Urinary Flow Changes, No Hesitancy, + possible exposure to trichomonas Musculoskeletal : No joint pain, No Myalgias, No Joint Swelling Skin : No Skin Lesions, No rash, no echymosis Neuro : No Weakness, No Numbness, No Paresthesias, No Loss of Consciousness, + Dizziness, + Headache Psych : + Anxiety, +Depression, No SI/HI/AH/VH, No Social Issues Heme/Lymph: No Bruising, No Bleeding,No Lymphadenopathy Endocrine : No Polyuria, No Polydipsia, No Temperature Intolerance <ARTURO Parra Last Filed: 08/01/22 00:48> Yes all other systems are reviewed and are negative <ARTURO Parra Last Filed: 08/01/22 00:48> [facility] Past Medical History Attestation statement: The following information was validated with the patient. <ARTURO Parra Last Filed: 08/01/22 00:48> Source: old records reviewed, obtained from family and nursing notes reviewed <ARTURO Parra - Last Filed: 08/01/22 00:48> Medical History: Medical History Anxiety Migraines Scarlet fever Sciatic leg pain <ARTURO Parra - Last Filed: 08/01/22 00:48> Surgical History: Surgical History H/O adenoidectomy Hx of tonsillectomy <ARTURO Parra - Last Filed: 08/01/22 00:48> Social History Social History: Social History Advance Directives: No <ARTURO Parra - Last Filed: 08/01/22 00:48> Physical Exam ED Vital Signs: Vital Signs - 24 hr 07/31/22 16:33 Temperature 98.5 F Pulse Rate 87 Respiratory Rate 18 Blood Pressure 144/75 H Pulse Oximetry 99 Oxygen Delivery Method Room Air BMI result Body Mass Index 44.6 Vital signs have been reviewed and all within normal limits <ARTURO Parra - Last Filed: 08/01/22 00:48> Vital Signs - 24 hr 07/31/22 16:33 Temperature 98.5 F Pulse Rate 87 Respiratory Rate 18 Blood Pressure 144/75 H Pulse Oximetry 99 Oxygen Delivery Method Room Air BMI result Body Mass Index 44.6 <ARTURO Flores - Last Filed: 08/03/22 10:15> Appearance: Alert. Oriented X3. No acute distress. Head: Normal external exam. Normocephalic. Eyes: PERRLA. EOMI. Conjunctiva and sclera normal. Eyelids normal. ENT: Pharynx normal. Uvula midline. Moist mucous membranes. No trismus noted. No drooling noted. No muffled voice noted. Neck: Normal inspection. Neck supple. . CVS: Normal heart rate and rhythm. Heart sound normal. No murmurs noted. Pulses normal throughout. Respiratory: No respiratory distress. Painless inspiration. Breath sounds normal. No wheezes/rales/rhonchi noted. Chest nontender. No accessory muscle usage noted or decreased air movement noted. Abdomen: Soft and nontender. No guarding. No rigidity. Hypoactive Bowel sounds noted in all 4 quadrants. No distention noted. No organomegaly noted. No visible injury noted. No rebound tenderness. Skin: Skin warm and dry. Normal skin color. Normal skin turgor. No rashes/lesions/lacerations noted. Extremities: Extremities exhibit normal range of motion. Extremities nontender. Neuro: Oriented X 3. No motor deficit. No sensory deficit. Reflexes normal. Normal steady gait. CN's II-XII intact bilaterally Patient refused a rectal exam? <ARTURO Parra - Last Filed: 08/01/22 00:48> Course Course Course Narrative: 11pm -22 year old female presenting with abdominal pain, and blood in the stool. The patient reports a history of diarrhea for the past few months. She also reports last night she experienced an episode of loose blood stools, the toilet was filled with blood. She reports her last BM was this afternoon, and she is not currently experiencing rectal bleeding. The patient is also complaining of a migraine and requesting pain medication. She also reports a possible exposure to Trichomoniasis, and request a STI test for Trichomoniasis, patient denies any symptoms. CBC, Chem, mag, B-HCG, UA, trichm and STI Labs ordered, CT ordered, stool occult ordered. <ARTURO Parra - Last Filed: 08/01/22 00:48> Reevaluation(s) Reevaluation #1: -BV and Trichomoniasis swab collected. UA collected. <ARTURO Parra - Last Filed: 08/01/22 00:48> Time: 23:55 <ARTURO Parra - Last Filed: 08/01/22 00:48> Reevaluation #2: - labs reviewed patient with elevated white blood cell count 13617. BUN 8. Otherwise all other labs are within normal limits. Serum quant negative for . - awaiting UA and CT scan abdomen pelvis without IV contrast will re-evaluate. <ARTURO Parra - Last Filed: 08/01/22 00:48> Time: 00:20 <ARTURO Parra - Last Filed: 08/01/22 00:48> Reevaluation #3: - sign-out to candy pending UA and CT scan abdomen pelvis without IV contrast. <ARTURO Parra - Last Filed: 08/01/22 00:48> Time: 00:48 <ARTURO Parra - Last Filed: 08/01/22 00:48> Additional Reevaluation(s): 08/03/22--1014--patient's cultures were positive for BV, called and spoke to patient, made aware of results, sent in Flagyl 500 b.i.d. x7 days to [facility] for patient <Vira ARTURO Daniel - Last Filed: 08/03/22 10:15> MDM - Abdominal Pain Medical Records Attestation: I reviewed the patient's medical records. <ARTURO Parra - Last Filed: 08/01/22 00:48> Lab Data Attestation: I reviewed the patient's lab results. <ARTURO Parra - Last Filed: 08/01/22 00:48> Result diagrams: : 07/31/22 15:52 07/31/22 15:52 <ARTURO Parra - Last Filed: 08/01/22 00:48> Labs: Lab Results 07/31/22 07/31/22 08/01/22 Range/Units 15:52 15:52 00:51 WBC 11.1 H (4.8-10.8) X10*3/uL RBC 5.20 (4.20-5.50) X10*6/uL Hgb 14.2 (12.0-16.0) g/dl Hct 43.5 (37.0-47.0) % MCV 83.7 (80.0-98.0) fL MCH 27.3 (27.0-33.0) pg MCHC 32.6 (31.0-35.0) g/dl RDW 13.7 (11.0-16.0) % Plt Count 307 (160-400) X10*3/uL MPV 10.0 (9.4-12.3) fL Immature Gran % (Auto) 0.5 H (0.0-0.4) % Neut % (Auto) 55.4 (45-73) % Lymph % (Auto) 33.4 (20-40) % [place] % (Auto) 8.7 (2-11) % Eos % (Auto) 1.5 (0-4) % Baso % (Auto) 0.5 (0-2) % Lymph # (Auto) 3.7 (1.2-4.9) X10*3/uL [place] # (Auto) 1.0 (0.1-1.2) X10*3/uL Eos # (Auto) 0.2 (0.0-0.4) X10*3/uL Baso # (Auto) 0.1 (0.0-0.2) X10*3/uL Abs Immat Gran (auto) 0.06 H (0.00-0.03) X10*3/uL Absolute Neuts (auto) 6.1 (2.0-8.3) x10*3/uL Absolute Nucleated RBC 0.000 (0.0-0.012) X10*3/uL Nucleated RBC % (auto) 0.0 (0.0-0.2) /100WBC Sodium 138 (135-145) mmol/L Potassium 4.5 (3.3-5.1) mmol/L Chloride 106 (96-108) mmol/L Carbon Dioxide 22 (22-29) mmol/L Anion Gap 15 (12-20) BUN 8 L (9-16) mg/dL Creatinine 0.74 (0.5-1.4) mg/dL Estim Creat Clear Calc TNP Estimated GFR > 60 Random Glucose 90 (60-115) mg/dL Calcium 9.6 (8.4-10.2) mg/dL Magnesium 2.3 (1.6-2.6) mg/dL Total Bilirubin 0.2 (0.0-1.0) mg/dL Direct Bilirubin < 0.2 (0.0-0.5) mg/dL AST 18 (5-31) U/L ALT 21 (0-31) U/L Alkaline Phosphatase 61 (39-117) U/L Total Protein 7.5 (6.5-8.0) g/dL Albumin 4.4 (3.5-5.0) g/dL Lipase 67 (8-78) U/L Beta HCG, Quant < 2 mIU/mL Urine Color Urine Appearance Urine pH (5.0-9.0) Ur Specific [place] (1.005-1.025) Urine Protein (Neg-Trace) mg/dL Urine Glucose (UA) (Negative) mg/dL Urine Ketones (Negative) mg/dL Urine Blood (Negative) Urine Nitrite (Negative) Ur Leukocyte Esterase (Negative) Urine RBC (0-2) /HPF Urine WBC (0-5) /HPF Ur Squamous Epith Cells (0-2) /HPF Urine Bacteria (None Seen) Hyaline Casts (0-2) /LPF Kylie species DNA (Negative) Chlam trachomat DNA PCR NOT DETECTED (Not Detect.) Gardnerella DNA Probe (Negative) N.gonorrhoeae DNA (PCR) NOT DETECTED (Not Detect.) Trichomonas DNA Probe (Negative) 08/01/22 08/01/22 Range/Units 00:51 02:38 WBC (4.8-10.8) X10*3/uL RBC (4.20-5.50) X10*6/uL Hgb (12.0-16.0) g/dl Hct (37.0-47.0) % MCV (80.0-98.0) fL MCH (27.0-33.0) pg MCHC (31.0-35.0) g/dl RDW (11.0-16.0) % Plt Count (160-400) X10*3/uL MPV (9.4-12.3) fL Immature Gran % (Auto) (0.0-0.4) % Neut % (Auto) (45-73) % Lymph % (Auto) (20-40) % [place] % (Auto) (2-11) % Eos % (Auto) (0-4) % Baso % (Auto) (0-2) % Lymph # (Auto) (1.2-4.9) X10*3/uL [place] # (Auto) (0.1-1.2) X10*3/uL Eos # (Auto) (0.0-0.4) X10*3/uL Baso # (Auto) (0.0-0.2) X10*3/uL Abs Immat Gran (auto) (0.00-0.03) X10*3/uL Absolute Neuts (auto) (2.0-8.3) x10*3/uL Absolute Nucleated RBC (0.0-0.012) X10*3/uL Nucleated RBC % (auto) (0.0-0.2) /100WBC Sodium (135-145) mmol/L Potassium (3.3-5.1) mmol/L Chloride (96-108) mmol/L Carbon Dioxide (22-29) mmol/L Anion Gap (12-20) BUN (9-16) mg/dL Creatinine (0.5-1.4) mg/dL Estim Creat Clear Calc Estimated GFR Random Glucose (60-115) mg/dL Calcium (8.4-10.2) mg/dL Magnesium (1.6-2.6) mg/dL Total Bilirubin (0.0-1.0) mg/dL Direct Bilirubin (0.0-0.5) mg/dL AST (5-31) U/L ALT (0-31) U/L Alkaline Phosphatase (39-117) U/L Total Protein (6.5-8.0) g/dL Albumin (3.5-5.0) g/dL Lipase (8-78) U/L Beta HCG, Quant mIU/mL Urine Color Yellow Urine Appearance Clear Urine pH 5.5 (5.0-9.0) Ur Specific [place] 1.025 (1.005-1.025) Urine Protein Negative (Neg-Trace) mg/dL Urine Glucose (UA) Negative (Negative) mg/dL Urine Ketones Negative (Negative) mg/dL Urine Blood Negative (Negative) Urine Nitrite Negative (Negative) Ur Leukocyte Esterase Small (1+) H (Negative) Urine RBC 0-2 (0-2) /HPF Urine WBC 6-10 H (0-5) /HPF Ur Squamous Epith Cells 6-10 (0-2) /HPF Urine Bacteria 1+ (None Seen) Hyaline Casts 0-2 (0-2) /LPF Kylie species DNA Negative (Negative) Chlam trachomat DNA PCR (Not Detect.) Gardnerella DNA Probe Positive A (Negative) N.gonorrhoeae DNA (PCR) (Not Detect.) Trichomonas DNA Probe Negative (Negative) <ARTURO Parra - Last Filed: 08/01/22 00:48> Lab Results 07/31/22 07/31/22 08/01/22 Range/Units 15:52 15:52 00:51 WBC 11.1 H (4.8-10.8) X10*3/uL RBC 5.20 (4.20-5.50) X10*6/uL Hgb 14.2 (12.0-16.0) g/dl Hct 43.5 (37.0-47.0) % MCV 83.7 (80.0-98.0) fL MCH 27.3 (27.0-33.0) pg MCHC 32.6 (31.0-35.0) g/dl RDW 13.7 (11.0-16.0) % Plt Count 307 (160-400) X10*3/uL MPV 10.0 (9.4-12.3) fL Immature Gran % (Auto) 0.5 H (0.0-0.4) % Neut % (Auto) 55.4 (45-73) % Lymph % (Auto) 33.4 (20-40) % [place] % (Auto) 8.7 (2-11) % Eos % (Auto) 1.5 (0-4) % Baso % (Auto) 0.5 (0-2) % Lymph # (Auto) 3.7 (1.2-4.9) X10*3/uL [place] # (Auto) 1.0 (0.1-1.2) X10*3/uL Eos # (Auto) 0.2 (0.0-0.4) X10*3/uL Baso # (Auto) 0.1 (0.0-0.2) X10*3/uL Abs Immat Gran (auto) 0.06 H (0.00-0.03) X10*3/uL Absolute Neuts (auto) 6.1 (2.0-8.3) x10*3/uL Absolute Nucleated RBC 0.000 (0.0-0.012) X10*3/uL Nucleated RBC % (auto) 0.0 (0.0-0.2) /100WBC Sodium 138 (135-145) mmol/L Potassium 4.5 (3.3-5.1) mmol/L Chloride 106 (96-108) mmol/L Carbon Dioxide 22 (22-29) mmol/L Anion Gap 15 (12-20) BUN 8 L (9-16) mg/dL Creatinine 0.74 (0.5-1.4) mg/dL Estim Creat Clear Calc TNP Estimated GFR > 60 Random Glucose 90 (60-115) mg/dL Calcium 9.6 (8.4-10.2) mg/dL Magnesium 2.3 (1.6-2.6) mg/dL Total Bilirubin 0.2 (0.0-1.0) mg/dL Direct Bilirubin < 0.2 (0.0-0.5) mg/dL AST 18 (5-31) U/L ALT 21 (0-31) U/L Alkaline Phosphatase 61 (39-117) U/L Total Protein 7.5 (6.5-8.0) g/dL Albumin 4.4 (3.5-5.0) g/dL Lipase 67 (8-78) U/L Beta HCG, Quant < 2 mIU/mL Urine Color Urine Appearance Urine pH (5.0-9.0) Ur Specific [place] (1.005-1.025) Urine Protein (Neg-Trace) mg/dL Urine Glucose (UA) (Negative) mg/dL Urine Ketones (Negative) mg/dL Urine Blood (Negative) Urine Nitrite (Negative) Ur Leukocyte Esterase (Negative) Urine RBC (0-2) /HPF Urine WBC (0-5) /HPF Ur Squamous Epith Cells (0-2) /HPF Urine Bacteria (None Seen) Hyaline Casts (0-2) /LPF Kylie species DNA (Negative) Chlam trachomat DNA PCR NOT DETECTED (Not Detect.) Gardnerella DNA Probe (Negative) N.gonorrhoeae DNA (PCR) NOT DETECTED (Not Detect.) Trichomonas DNA Probe (Negative) 08/01/22 08/01/22 Range/Units 00:51 02:38 WBC (4.8-10.8) X10*3/uL RBC (4.20-5.50) X10*6/uL Hgb (12.0-16.0) g/dl Hct (37.0-47.0) % MCV (80.0-98.0) fL MCH (27.0-33.0) pg MCHC (31.0-35.0) g/dl RDW (11.0-16.0) % Plt Count (160-400) X10*3/uL MPV (9.4-12.3) fL Immature Gran % (Auto) (0.0-0.4) % Neut % (Auto) (45-73) % Lymph % (Auto) (20-40) % [place] % (Auto) (2-11) % Eos % (Auto) (0-4) % Baso % (Auto) (0-2) % Lymph # (Auto) (1.2-4.9) X10*3/uL [place] # (Auto) (0.1-1.2) X10*3/uL Eos # (Auto) (0.0-0.4) X10*3/uL Baso # (Auto) (0.0-0.2) X10*3/uL Abs Immat Gran (auto) (0.00-0.03) X10*3/uL Absolute Neuts (auto) (2.0-8.3) x10*3/uL Absolute Nucleated RBC (0.0-0.012) X10*3/uL Nucleated RBC % (auto) (0.0-0.2) /100WBC Sodium (135-145) mmol/L Potassium (3.3-5.1) mmol/L Chloride (96-108) mmol/L Carbon Dioxide (22-29) mmol/L Anion Gap (12-20) BUN (9-16) mg/dL Creatinine (0.5-1.4) mg/dL Estim Creat Clear Calc Estimated GFR Random Glucose (60-115) mg/dL Calcium (8.4-10.2) mg/dL Magnesium (1.6-2.6) mg/dL Total Bilirubin (0.0-1.0) mg/dL Direct Bilirubin (0.0-0.5) mg/dL AST (5-31) U/L ALT (0-31) U/L Alkaline Phosphatase (39-117) U/L Total Protein (6.5-8.0) g/dL Albumin (3.5-5.0) g/dL Lipase (8-78) U/L Beta HCG, Quant mIU/mL Urine Color Yellow Urine Appearance Clear Urine pH 5.5 (5.0-9.0) Ur Specific [place] 1.025 (1.005-1.025) Urine Protein Negative (Neg-Trace) mg/dL Urine Glucose (UA) Negative (Negative) mg/dL Urine Ketones Negative (Negative) mg/dL Urine Blood Negative (Negative) Urine Nitrite Negative (Negative) Ur Leukocyte Esterase Small (1+) H (Negative) Urine RBC 0-2 (0-2) /HPF Urine WBC 6-10 H (0-5) /HPF Ur Squamous Epith Cells 6-10 (0-2) /HPF Urine Bacteria 1+ (None Seen) Hyaline Casts 0-2 (0-2) /LPF Kylie species DNA Negative (Negative) Chlam trachomat DNA PCR (Not Detect.) Gard[place]rella DNA Probe Positive A (Negative) N.gonorrhoeae DNA (PCR) (Not Detect.) Trichomonas DNA Probe Negative (Negative) <ARTURO Flores - Last Filed: 08/03/22 10:15> Discharge Plan Discharge Clinical Impression: Abdominal pain <ARTURO Parra - Last Filed: 08/01/22 00:48> Patient Disposition: Home, Self-Care <ARTURO Parra - Last Filed: 08/01/22 00:48> Instructions: Abdominal Pain (ED) <ARTURO Parra - Last Filed: 08/01/22 00:48> Additional Instructions: You were evaluated for abdominal pain. CT scan is negative for acute findings requiring emergent intervention. Please consider following up with your primary care physician and/or Gastroenterology for family history of Crohn's disease. Your labs results are pending. If her labs are positive we will call you with results and prescribe appropriate treatment for you. I referred you to Dr. Lim, gastroenterology, please call and request an appointment for evaluation for rectal bleeding. Thank you for choosing this emergency department for evaluation. Please follow-up with primary care physician as needed. Return to the emergency department for any new, concerning, or worsening symptoms. <ARTURO Parra - Last Filed: 08/01/22 00:48> Prescriptions: New metronidazole 500 mg tablet 500 mg PO Q8H 7 Days Qty: 21 0RF No Action acetaminophen [Tylenol Extra Strength] 500 mg tablet 500 mg PO Q6H PRN (Reason: pain or fever) Qty: 20 0RF lidocaine [Lidoderm] 5 % adhesive patch,medicated 1 patch topical DAILY MDD remove after 12 hours PRN (Reason: pain) Qty: 30 0RF Rx Instructions: leave on most painful area for up to 12 hrs sumatriptan succinate [Imitrex] 50 mg tablet See Rx Instructions .ROUTE .COMPLEX Qty: 10 0RF Rx Instructions: take 1 tab at onset of headache; if no relief may repeat 1 tab after at least 2 hrs; max = 2 tabs/24 hr bczcwrmfjn-osjolfcxmvzrk-ckfi [Fioricet] 50-300-40 mg capsule 1 cap PO Q6H PRN (Reason: pain) Qty: 20 0RF ibuprofen 600 mg tablet 600 mg PO Q6H PRN (Reason: pain) Qty: 20 0RF ondansetron 4 mg tablet,disintegrating 4 mg PO Q8H 3 Days Qty: 9 0RF albuterol sulfate [ProAir HFA] 90 mcg/actuation HFA aerosol inhaler 2 puff inhalation QID PRN (Reason: shortness of breath or wheezing) Qty: 8.5 0RF ketorolac 10 mg tablet 10 mg PO Q8H PRN (Reason: pain) Qty: 20 0RF cefuroxime axetil 250 mg tablet 250 mg PO BID 7 Days Qty: 14 0RF ketorolac 10 mg tablet 10 mg PO Q8H PRN (Reason: pain) Qty: 14 0RF cyclobenzaprine 10 mg tablet 10 mg PO Q8H PRN (Reason: Muscle spasm) Qty: 14 0RF cyclobenzaprine 10 mg tablet 5 mg PO TID PRN (Reason: back pain) 7 Days Qty: 21 0RF nitrofurantoin monohyd/m-cryst [Macrobid] 100 mg capsule 100 mg PO Q12H 7 Days Qty: 14 0RF Rx Instructions: must administer with a meal/food phenazopyridine 100 mg tablet 100 mg PO TID Qty: 6 0RF <ARTURO Parra - Last Filed: 08/01/22 00:48> Referrals: Physician,Pooja Briones [Primary Care Provider] - 2 days (your pcp) Mychal Lim [Physician] - 1 week (Rectal bleeding with family history of Crohn's) <ARTURO Parra - Last Filed: 08/01/22 00:48> Stand Alone Forms: Work/School Release <ARTURO Parar - Last Filed: 08/01/22 00:48> Interventions: ED Discharge Assessment Last Done: 08/01/22 03:00 <ARTURO Parra - Last Filed: 08/01/22 00:48> Discharge Date/Time: 08/01/22 03:01 <ARTURO Parra - Last Filed: 08/01/22 00:48>
[2022-07-31] MEDS: Ketorolac Tromethamine 60 MG/2 ML VIAL IM (23:17)
[2022-07-31 23:51] LABS: HCG Quantitative < 2 mIU/mL
[2022-08-01 02:33] VITALS: BP 147/83; PULSE 92; RESP 18; O2SAT 99
[2022-08-01 02:48] LABS: Appearance Urine Clear; Color Urine Yellow; Glucose Urine UA Negative (Negative); Leukocyte Esterase Urine Small (1+) (Negative); Nitrite Urine Negative (Negative); PH 5.5 (5.0-9.0); Specific Gravity - Urine 1.025 (1.005-1.025); UMIC TRIGGER UACC YES; Urine Blood Negative (Negative); Urine Ketones Negative (Negative); Urine Protein Negative (Neg-Trace)
[2022-08-01 04:18] LABS: Bacteria Urine 1+ (None Seen); Hyaline Casts Urine 0-2 /LPF (0-2); RBC Urine 0-2 /HPF (0-2); UACC Culture Trigger YES
[2022-08-01 06:05] LABS: CT PCR NOT DETECTED (Not Detect.); NG PCR NOT DETECTED (Not Detect.)
[2022-08-01 11:11] LABS: BV Int Neg Control Negative (Negative); BV Int Pos Control Positive (Positive)
== END 2022-08-01 03:01 | disposition home or self-care (01) ==
PROVIDERS: Nurse Practitioner Family; Physician Assistant Medical; Emergency Provider Student in an Organized Health Care Education/Training Program
DX: N76.0 Acute vaginitis (principal); R10.9 Unspecified abdominal pain; K92.1 Melena; R93.5 Abnormal findings on diagnostic imaging of other abdominal regions, including retroperitoneum; Z79.899 Other long term (current) drug therapy
CPT/HCPCS: 36415; 74176; 80053; 81001; 81003; 82248; 83690; 83735; 84702; 85025; 87086; 87480; 87491; 87510; 87591; 87660; 96372; 99283; 99284; J1885

== ENCOUNTER 2022-09-06 19:40 | Emergency (ER) | payer OTHER, SELFPAY ==
[2022-09-06 20:25] VITALS: BP 150/98; PULSE 98; O2SAT 95
[2022-09-06 22:10] VITALS: BP 141/87; PULSE 86; RESP 18; TEMP 36.2; O2SAT 98; BMI 44.1
[2022-09-06 23:44] LABS: Appearance Urine Clear; Color Urine Yellow; Glucose Urine UA Negative (Negative); Leukocyte Esterase Urine Moderate (2+) (Negative); Nitrite Urine Negative (Negative); Specific Gravity - Urine 1.025 (1.005-1.025); UMIC TRIGGER UACC YES; Urine Blood Negative (Negative); Urine Ketones Negative (Negative); Urine Protein Negative (Neg-Trace)
[2022-09-06 23:49] LABS: Bacteria Urine 4+ (None Seen); Hyaline Casts Urine 0-2 /LPF (0-2); RBC Urine 0-2 /HPF (0-2); UACC Culture Trigger YES; WBC Urine 21-50 /HPF (0-5)
[2022-09-07 01:24] VITALS: BP 123/81; PULSE 86; RESP 16; TEMP 36.3; O2SAT 98
--- OUTSIDE RECORDS SUMMARY | 2022-09-07 03:31 | XMS_ITS | Continuity of Care Document ---
:2001 Author Organization [facility] Address [address] [place] [id number]- Care Team Providers Name Role Phone Teresita Clemens MD Primary Care Physician [place] [facility] [place] - 08/22/[address] [address]- Discharge Disposition: A-D/C Walkout Attending Physician: Not on Staff, Attending MD Admitting Physician: Not on Staff, Admitting MD Referring Physician: Not on Staff, Referring MD Allergies, Adverse Reactions, Alerts Substance Reaction Severity Status NKA Active Medications Aerochamber w/Mask (Large) See Instructions, # 1 each, Maintenance, Please use each time with inhaler, 02/05/20 14:08:00 EDT, Compound, 118.2, kg, 01/05/20 13:25:00 EST, Dry Weight Start Date: 02/05/20 Status: Orderedalbuterol CFC free 90 mcg/inh inhalation aerosol 2, puffs, Inhalation, Every 6 hours, INHALE 1 TO 2 PUFFS Q 4 TO 6 H PRF DIFFICULTY BREATHING, # 1 each, Refills 0, Tot. Refills 0, Maintenance, 02/05/20 14:07:00 EDT, Inhaler, Route to Pharmacy Electronically, [id number], [facility] Start Date: 02/05/20 Status: OrderedmedroxyPROGESTERone 150 mg/mL intramuscular suspension 1 mL = 150 mg, Intramuscular, Every 3 months, # 1 mL, 0 Refills, Maintenance, 02/05/20 14:15:00 EDT,Suspension Start Date: 02/05/20 Status: Ordered Problem List Condition Effective Dates Status Health Status Informant Asthma(Confirmed) Active Depression(Confirmed) Active Vital Signs Most recent to oldest 1 2 3 [Reference Range]: Height 164 cm (08/22/21 8:16 PM) Weight 126 kg (08/22/21 8:16 PM) Oxygen Saturation [94-100 98 % 99 % 100 % %] (08/22/21 9:16 PM) (08/22/21 8:16 PM) (08/22/21 7:05 PM) Pulse Rate [55-90 bpm] 88 bpm 98 bpm 113 bpm (08/22/21 9:16 PM) *H* *H* (08/22/21 8:16 PM) (08/22/21 7:0 5 PM) Blood Pressure 129/74 mm Hg 129/74 mm Hg [90-138/55-84 mm Hg] (08/22/21 9:16 PM) (08/22/21 8:16 PM) Respiratory Rate [16-30 16 br/min 20 br/min br/min] (08/22/21 9:16 PM) (08/22/21 8:16 PM) Temperature [96.8-100.4 98.0 DegF 98.3 DegF DegF] (08/22/21 9:16 PM) (08/22/21 8:16 PM) Mode of Delivery (Oxygen) Room air Room air Room a ir (08/22/21 9:16 PM) (08/22/21 8:16 PM) (08/22/21 7:05 PM) Blood pressure sites Arm, right Arm, left (08/22/21 9:16 PM) (08/22/21 8:16 PM) Temperature Route Oral Oral (08/22/21 9:16 PM) (08/22/21 8:16 PM) Weight Obtained Via Patient/family stated (08/22/21 8:16 PM) Social History Social History Type Response Smoking Status 10 or more cigarettes (1/2 p ack or more)/day in last 30 days entered on: 02/05/20 Sex
--- OUTSIDE RECORDS SUMMARY | 2022-09-07 03:31 | XMS_ITS | Continuity of Care Document ---
:2001 Author Organization [facility] Address [address] [place] [id number]- Care Team Providers Name Role Phone SarathTeresita solorio DO Primary Care Physician Unavailable [place] [facility] [place] 01/05/[address] [address]- [facility] Encounter Diagnosis back pain (Final) - 01/05/20 Discharge Disposition: A-D/C Home Attending Physician: Raeann Parada MD Admitting Physician: Raeann Parada MD Referring Physician: Not on Staff, Referring MD Allergies, Adverse Reactions, Alerts Substance Reaction Severity Status NKA Active Medications ibuprofen 600 mg oral tablet 600 mg, 1, tablet, By Mouth, 4 times a day, with food or milk, # 12 tablet, Refills 0, Tot. Refills 0, Maintenance, 01/05/20 17:29:00 EST, Route to Pharmacy Electronically, [facility] #[id number],118.2, kg, 01/05/20 13:25:00 EST, Dry Weight Start Date: 01/05/20 Stop Date: 01/08/20 Status: Ordered Results Orders for Microbiology Reports Name Date Wet Prep (WET PREP) 01/05/20 Microbiology Reports TEST:Wet Prep STATUS:Auth (Verified) BODY SITE: SOURCE:VAGINA COLLECTED DATE/TIME:01/05/20 5:54 PMWet Prep SPECIMEN DESCRIPTION : VAGINAL SPECIMEN SPECIAL REQUESTS : NONE DIRECT EXAM : 3+ RBC'S 3+ WHITE BLOOD CELLS NO TRICHOMONAS,YEAST,OR CLUE CELLS OBSERVED TRANSPORT TIME GREATER THAN ONE HOUR MAY CAUSE FALSE NEGATIVE RESULTS FOR DETECTION OF MOTILE TRICHOMONADS REPORT STATUS : FINAL 01/05/2020 Vital Signs Most recent to oldest 1 2 3 [Reference Range]: Weight 118.2 kg 118.2 kg 118.2 kg (01/05/20 1:25 PM) (01/05/20 12:10 PM) (01/05/20 11:36 AM) Oxygen Saturation [94-100 %] 100 % 98 % 100 % (01/05/20 1:25 PM) (01/05/20 11:36 AM) (01/05/20 11:20 AM) Pulse Rate [55-90 bpm] 80 bpm 88 bpm 92 bpm (01/05/20 1:25 PM) (01/05/20 11:36 AM) *H* (01/05/20 11:20 AM ) Blood Pressure [71-110/30-71 mm 123/71 mm Hg 119/74 mm Hg Hg] *H* *H* (01/05/20 1:25 PM) (01/05/20 11:36 AM) Respiratory Rate [16-30 br/min] 16 br/min 19 br/min (01/05/20 1:25 PM) (01/05/20 11:36 AM) Temperature [96.8-100.4 DegF] 98.5 DegF 98.7 DegF (01/05/20 1:25 PM) (01/05/20 11:36 AM) Mode of Delivery (Oxygen) Room air Room air Room a ir (01/05/20 1:25 PM) (01/05/20 11:36 AM) (01/05/20 11:20 AM) Blood pressure sites Arm, right Arm, right (01/05/20 1:25 PM) (01/05/20 11:36 AM) Temperature Route Oral Oral (01/05/20 1:25 PM) (01/05/20 11:36 AM) Dry Weight 118.2 kg 118.2 kg 118.2 kg (01/05/20 1:25 PM) (01/05/20 12:10 PM) (01/05/20 11:36 AM) Weight Obtained Via Standing scale (01/05/20 11:36 AM) Dry Weight Obtained Via Standing scale (01/05/20 11:36 AM)
--- OUTSIDE RECORDS SUMMARY | 2022-09-07 03:31 | XMS_ITS | Continuity of Care Document ---
:2001 Author Organization [facility] Address [address] [place] [address]- Care Team Providers Name Role Phone Teresita Clemens DO Primary Care Physician Unavailable [place] [facility] [place]/05/20 - 03/06/[address] [address]- [facility] Attending Physician: Not on Staff, Attending MD Allergies, Adverse Reactions, Alerts Substance Reaction [...] 14:07:00 EDT, Inhaler, Route to Pharmacy Electronically, [id number], [facility] Start Date: 02/05/20 Status: OrderedmedroxyPROGESTERone 150 mg/mL intramuscular suspension 1 mL = 150 mg, Intramuscular, Every 3 months, # 1 mL, 0 Refills, Maintenance, 02/05/20 14:15:00 EDT,Suspension Start Date: 02/05/20 Status: Ordered Problem List Condition Effective Dates Status Health Status Informant Asthma(Confirmed) Active Depression(Confirmed) Active Social History Social History Type Response Smoking Status 10 or more cigarettes (1/2 p ack or more)/day in last 30 days entered on: 02/05/20 Sex
--- OUTSIDE RECORDS SUMMARY | 2022-09-07 03:31 | XMS_ITS | Continuity of Care Document ---
:2001 Author Organization [facility] Address [address] [place] [address]- Care Team Providers Name Role Phone Teresita Clemens DO Primary Care Physician Unavailable [place] [facility] [place](s): 02/05/20 - 02/12/[address] [address]- [facility] Encounter Diagnosis Establishing care with new doctor, encounter for (Discharge Diagnosis) - 02/05/20 Asthma (Discharge Diagnosis) - 02/05/20 Depression (Discharge Diagnosis) - 02/05/20 Anxiety (Discharge Diagnosis) - 02/05/20 Attending Physician: Shania Sequeira MD Allergies, Adverse Reactions, Alerts Substance Reaction [...] 14:07:00 EDT, Inhaler, Route to Pharmacy Electronically, [id number], [facility] Start Date: 02/05/20 Status: OrderedmedroxyPROGESTERone 150 mg/mL intramuscular suspension 1 mL = 150 mg, Intramuscular, Every 3 months, # 1 mL, 0 Refills, Maintenance, 02/05/20 14:15:00 EDT,Suspension Start Date: 02/05/20 Status: Ordered Problem List Condition Effective Dates Status Health Status Informant Asthma(Confirmed) Active Depression(Confirmed) Active Diagnosis Diagnosis Type Effective Dates Health Clinical Infor mant Status Service Establishing care Discharge 02/05/20 with new doctor, Diagnosis encounter for Asthma Discharge 02/05/20 Diagnosis Depression Discharge 02/05/20 Diagnosis Anxiety Discharge 02/05/20 Diagnosis Procedures Procedure Date Related Diagnosis Body Site Status Tonsillectomy and adenoidectomy 2011 Completed Social History Social History Type Response Smoking Status 10 or more cigarettes (1/2 p ack or more)/day in last 30 days entered on: 02/05/20 Sex
--- OUTSIDE RECORDS SUMMARY | 2022-09-07 03:31 | XMS_ITS | Continuity of Care Document ---
:2001 Author Organization [facility] Address [address] [place] [address]- Care Team Providers Name Role Phone Teresita Clemens DO Primary Care Physician Unavailable [place] [facility] [place] Date(s): 02/05/20 - 02/15/[address] [address]- [facility] Attending Physician: Jacque Patel Admitting Physician: AdmJacque cazares Referring Physician: AdmtrJacque Allergies, Adverse Reactions, Alerts Substance Reaction Severity [...] 14:07:00 EDT, Inhaler, Route to Pharmacy Electronically, [id number], [facility] Start Date: 02/05/20 Status: OrderedmedroxyPROGESTERone 150 [...]
--- NOTE | 2022-09-07 03:47 | ECG_ITS ---
Test Reason : Near syncope Blood Pressure : / mmHG Vent. Rate : 083 BPM Atrial Rate : 083 BPM P-R Int : 182 ms QRS Dur : 082 ms QT Int : 384 ms P-R-T Axes : 038 045 015 degrees QTc Int : 451 ms Normal sinus rhythm Normal ECG When compared with ECG of 16-FEB-2022 19:44, Heart rate has decreased Referred By: Blaine Moore Electronically Signed By:FRED ORTIZ MD
[2022-09-07 03:48] VITALS: BP 125/65; PULSE 89; RESP 18; TEMP 36.6; O2SAT 100
--- NOTE | 2022-09-07 03:49 | ED_ITS ---
HPI - Dizziness General Chief Complaint: Dizziness Stated Complaint: WEAK/DIZZY Time Seen by Provider: 09/07/22 03:36 Source: patient Mode of arrival: ambulatory Limitations: no limitations History of Present Illness HPI Narrative: 22-year-old female who presents emergency department for evaluation of dizziness that came on suddenly while she was at work. 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 The patient states that she had 3 large bowel movements . She then helped 1 of her colleagues shower a patient and was passing out food tray and then she had a sudden onset of lightheadedness and dizziness is if she is going to pass out. She felt very weak. One of her colleagues checked her blood pressure at work and it was 158/111. The patient does not have a history of hypertension and she states when she has checked her blood pressure in the past it has always been normal. She states she has been anxious and has been under stress. Since being in the emergency department the patient did developed a migraine headache. She states she gets migraines frequently. She is currently complaining of a pressure-like pain on the left side of her head. She also states she has a visual aura. She states the pain is 8/10. She does have associated nausea with no vomiting. The patient's review of systems was negative for fever, chills, rhinorrhea, sore throat, chest pain, shortness of breath frequency, urgency or dysuria. Related Data Previous Rx's Medication Instructions Recorded acetaminophen 500 mg tablet 500 mg PO Q6H PRN pain or fever 01/04/21 (Tylenol Extra Strength) #20 tabs lidocaine 5 % topical patch 1 patch topical DAILY PRN pain #30 01/04/21 (Lidoderm) ea wvjsaioylu-ijqmzelqvsqfa-rlcntsfv 1 cap PO Q6H PRN pain #20 caps 03/20/21 50 mg-300 mg-40 mg capsule (Fioricet) sumatriptan succinate 50 mg tablet See Rx Instructions PO .COMPLEX 03/20/21 (Imitrex) #10 tabs ibuprofen 600 mg tablet 600 mg PO Q6H PRN pain #20 tabs 12/14/21 cyclobenzaprine 10 mg tablet 5 mg PO TID PRN back pain 7 days 04/26/22 #21 tabs albuterol sulfate 90 mcg/actuation 2 puff inhalation QID PRN 05/06/22 aerosol inhaler (ProAir HFA) shortness of breath or wheezing #8.5 grams ketorolac 10 mg tablet 10 mg PO Q8H PRN pain #20 tabs 05/06/22 ondansetron 4 mg disintegrating 4 mg PO Q8H 3 days #9 tabs 05/06/22 tablet nitrofurantoin 100 mg PO Q12H 7 days #14 caps 06/15/22 monohydrate/macrocrystals 100 mg capsule (Macrobid) phenazopyridine 100 mg tablet 100 mg PO TID 6 doses #6 tabs 06/15/22 cefuroxime axetil 250 mg tablet 250 mg PO BID 7 days #14 tabs 06/25/22 cyclobenzaprine 10 mg tablet 10 mg PO Q8H PRN Muscle spasm #14 06/25/22 tabs ketorolac 10 mg tablet 10 mg PO Q8H PRN pain #14 tabs 06/25/22 metronidazole 500 mg tablet 500 mg PO Q8H 7 days #21 tabs 08/03/22 Allergies Allergy/AdvReac Type Severity Reaction Status Date / Time No Known Allergies Allergy Unverified 07/22/20 18:33 Review of Systems Review of Systems: Yes all other systems are reviewed and are negative [facility] Past Medical History [facility] Narrative: Social history: The patient states she vapes nicotine products all day long. She occasionally drinks alcohol. She occasionally smokes marijuana. Medical History Anxiety Migraines Scarlet fever Sciatic leg pain Surgical History H/O adenoidectomy Hx of tonsillectomy Social History Social History Advance Directives: No Physical Exam Vital Signs: Vital Signs: Last Vital Signs Temp 98 F 09/07/22 03:48 Pulse 89 09/07/22 03:48 Resp 18 09/07/22 03:48 BP 125/65 09/07/22 03:48 Pulse Ox 100 09/07/22 03:48 O2 Del Method 09/07/22 03:48 BMI result Body Mass Index 44.1 Const: Other: Awake, alert, female patient, pleasant, cooperative does not appear to be in distress, answers all questions appropriately HEENT: Head: Yes normal to inspection, Yes normocephalic and Yes atraumatic Ears: external ears normal General nose exam: Normal external nose present Face and sinus: Yes normal facial exam Mouth: Normal oral and palatal mucosa present Throat: Yes posterior oropharynx normal Eyes: General: appearance normal, both eyes and all related structures Pupils: Equal, round and reactive pupils present Neck: Neck: Yes normal visual inspection, Yes no lymphadenopathy, Yes trachea midline and Yes supple Chest: Chest palpation & inspection: normal inspection of the chest and normal palpation of entire chest wall Resp: Effort & Inspection: normal respiratory effort and able to speak in complete sentences Auscultation: clear to auscultation bilaterally Cardio: Rate: regular rate Rhythm: regular rhythm Heart sounds: S1 normal heart sound present, S2 normal heart sound present and no murmurs GI: Inspection: Yes normal to inspection Palpation (GI): Soft to palpation, nontender and no guarding Auscultation: normal bowel sounds : General: Yes no CVA tenderness Back/Spine/Pelvis: Back: no CVA tenderness Skin: General skin exam: no rashes or lesions noted Neuro: Cranial nerves: Yes CN's II-XII intact bilaterally and Yes Equal, round and reactive pupils present Cognition (Neuro): normal cognition Motor exam (neuro): 5/5 motor strength present throughout Extrem: General: Yes normal to inspection Psych: Appearance: grossly normal Speech and movement: Normal speech and movement present Affect: normal affect Attitude: cooperative Thought process: Normal thought process present Thought content: Normal thought content present Course Course Course Narrative: 22-year-old female who presents emergency department for evaluation of lightheadedness/dizziness that occurred while she was at work and elevated blood pressure. Patient has a history of migraines and states that while she was waiting in the emergency department she developed her typical migraine. Patient's vital signs were unremarkable. The patient's neurologic exam was normal. The patient had CBC CMP which was unremarkable. Twelve EKG was unremarkable. The patient was treated with Toradol 15 mg IV, Reglan 10 mg IV and Benadryl 50 mg IV and 1 L of normal saline IV. Patient feels significantly better after the above treatment. At this time I suspect that the patient's lightheadedness and dizziness may be related to anxiety. She did tell me that she was under lot of stress and has been having difficulty with anxiety recently. The patient was given verbal and printed instructions and discharged home. She was also given a work note. MDM - Dizziness Lab Data Result diagrams: 09/07/22 03:52 09/07/22 03:56 Labs: Lab Results 09/06/22 09/07/22 09/07/22 Range/Units 22:41 03:52 03:56 WBC 11.9 H (4.8-10.8) X10*3/uL RBC 4.99 (4.20-5.50) X10*6/uL Hgb 13.5 (12.0-16.0) g/dl Hct 41.4 (37.0-47.0) % MCV 83.0 (80.0-98.0) fL MCH 27.1 (27.0-33.0) pg MCHC 32.6 (31.0-35.0) g/dl RDW 13.3 (11.0-16.0) % Plt Count 269 (160-400) X10*3/uL MPV 10.0 (9.4-12.3) fL Immature Gran % (Auto) 0.7 H (0.0-0.4) % Neut % (Auto) 54.5 (45-73) % Lymph % (Auto) 34.1 (20-40) % [place] % (Auto) 8.4 (2-11) % Eos % (Auto) 2.0 (0-4) % Baso % (Auto) 0.3 (0-2) % Lymph # (Auto) 4.1 (1.2-4.9) X10*3/uL [place] # (Auto) 1.0 (0.1-1.2) X10*3/uL Eos # (Auto) 0.2 (0.0-0.4) X10*3/uL Baso # (Auto) 0.0 (0.0-0.2) X10*3/uL Abs Immat Gran (auto) 0.08 H (0.00-0.03) X10*3/uL Absolute Neuts (auto) 6.5 (2.0-8.3) x10*3/uL Absolute Nucleated RBC 0.000 (0.0-0.012) X10*3/uL Nucleated RBC % (auto) 0.0 (0.0-0.2) /100WBC Sodium 140 (135-145) mmol/L Potassium 3.9 (3.3-5.1) mmol/L Chloride 104 (96-108) mmol/L Carbon Dioxide 24 (22-29) mmol/L Anion Gap 16 (12-20) BUN 9 (9-16) mg/dL Creatinine 0.75 (0.5-1.4) mg/dL Estim Creat Clear Calc 148.8 Estimated GFR > 60 Random Glucose 89 (60-115) mg/dL Calcium 9.3 (8.4-10.2) mg/dL Total Bilirubin 0.3 (0.0-1.0) mg/dL AST 13 (5-31) U/L ALT 16 (0-31) U/L Alkaline Phosphatase 57 (39-117) U/L Troponin I High Sens (<3.5-17.0) ng/L Total Protein 6.9 (6.5-8.0) g/dL Albumin 4.1 (3.5-5.0) g/dL Lipase 66 (8-78) U/L Urine Color Yellow Urine Appearance Clear Urine pH 6.0 (5.0-9.0) Ur Specific [place] 1.025 (1.005-1.025) Urine Protein Negative (Neg-Trace) mg/dL Urine Glucose (UA) Negative (Negative) mg/dL Urine Ketones Negative (Negative) mg/dL Urine Blood Negative (Negative) Urine Nitrite Negative (Negative) Ur Leukocyte Esterase Moderate (2+) H (Negative) Urine RBC 0-2 (0-2) /HPF Urine WBC 21-50 H (0-5) /HPF Ur Squamous Epith Cells 11-20 (0-2) /HPF Urine Bacteria 4+ (None Seen) Hyaline Casts 0-2 (0-2) /LPF 09/07/22 Range/Units 03:56 WBC (4.8-10.8) X10*3/uL RBC (4.20-5.50) X10*6/uL Hgb (12.0-16.0) g/dl Hct (37.0-47.0) % MCV (80.0-98.0) fL MCH (27.0-33.0) pg MCHC (31.0-35.0) g/dl RDW (11.0-16.0) % Plt Count (160-400) X10*3/uL MPV (9.4-12.3) fL Immature Gran % (Auto) (0.0-0.4) % Neut % (Auto) (45-73) % Lymph % (Auto) (20-40) % [place] % (Auto) (2-11) % Eos % (Auto) (0-4) % Baso % (Auto) (0-2) % Lymph # (Auto) (1.2-4.9) X10*3/uL [place] # (Auto) (0.1-1.2) X10*3/uL Eos # (Auto) (0.0-0.4) X10*3/uL Baso # (Auto) (0.0-0.2) X10*3/uL Abs Immat Gran (auto) (0.00-0.03) X10*3/uL Absolute Neuts (auto) (2.0-8.3) x10*3/uL Absolute Nucleated RBC (0.0-0.012) X10*3/uL Nucleated RBC % (auto) (0.0-0.2) /100WBC Sodium (135-145) mmol/L Potassium (3.3-5.1) mmol/L Chloride (96-108) mmol/L Carbon Dioxide (22-29) mmol/L Anion Gap (12-20) BUN (9-16) mg/dL Creatinine (0.5-1.4) mg/dL Estim Creat Clear Calc Estimated GFR Random Glucose (60-115) mg/dL Calcium (8.4-10.2) mg/dL Total Bilirubin (0.0-1.0) mg/dL AST (5-31) U/L ALT (0-31) U/L Alkaline Phosphatase (39-117) U/L Troponin I High Sens < 3.5 (<3.5-17.0) ng/L Total Protein (6.5-8.0) g/dL Albumin (3.5-5.0) g/dL Lipase (8-78) U/L Urine Color Urine Appearance Urine pH (5.0-9.0) Ur Specific [place] (1.005-1.025) Urine Protein (Neg-Trace) mg/dL Urine Glucose (UA) (Negative) mg/dL Urine Ketones (Negative) mg/dL Urine Blood (Negative) Urine Nitrite (Negative) Ur Leukocyte Esterase (Negative) Urine RBC (0-2) /HPF Urine WBC (0-5) /HPF Ur Squamous Epith Cells (0-2) /HPF Urine Bacteria (None Seen) Hyaline Casts (0-2) /LPF Discharge Plan Discharge Clinical Impression: Dizziness, Headache, migraine Patient Disposition: Home, Self-Care Instructions: Dizziness (ED) Additional Instructions: At this time, I do not have a clear cause for your dizziness. Your blood work was normal. Your EKG was normal. It is possible that you dizziness may be caused by being dehydrated or may be secondary to anxiety. Your migraine headache was treated here in the emergency department with Reglan 10 mg, Benadryl 50 mg and Toradol 15 mg IV. You also received a L of normal saline IV. I do not think that your symptoms today were related to high blood pressure but rather your symptoms caused you to have an elevated blood pressure which is normal whenever you have stress and anxiety and feel ill. Follow-up with your doctor in 2 days. Please return to the emergency department if your symptoms get worse or if you develop any symptoms that are concerning to you. Please see the work note Prescriptions: No Action acetaminophen [Tylenol Extra Strength] 500 mg tablet 500 mg PO Q6H PRN (Reason: pain or fever) Qty: 20 0RF lidocaine [Lidoderm] 5 % adhesive patch,medicated 1 patch topical DAILY MDD remove after 12 hours PRN (Reason: pain) Qty: 30 0RF Rx Instructions: leave on most painful area for up to 12 hrs sumatriptan succinate [Imitrex] 50 mg tablet See Rx Instructions .ROUTE .COMPLEX Qty: 10 0RF Rx Instructions: take 1 tab at onset of headache; if no relief may repeat 1 tab after at least 2 hrs; max = 2 tabs/24 hr owuytzdjnz-fxupuktqfioso-abic [Fioricet] 50-300-40 mg capsule 1 cap PO Q6H PRN (Reason: pain) Qty: 20 0RF ibuprofen 600 mg tablet 600 mg PO Q6H PRN (Reason: pain) Qty: 20 0RF ondansetron 4 mg tablet,disintegrating 4 mg PO Q8H 3 Days Qty: 9 0RF albuterol sulfate [ProAir HFA] 90 mcg/actuation HFA aerosol inhaler 2 puff inhalation QID PRN (Reason: shortness of breath or wheezing) Qty: 8.5 0RF ketorolac 10 mg tablet 10 mg PO Q8H PRN (Reason: pain) Qty: 20 0RF cefuroxime axetil 250 mg tablet 250 mg PO BID 7 Days Qty: 14 0RF ketorolac 10 mg tablet 10 mg PO Q8H PRN (Reason: pain) Qty: 14 0RF cyclobenzaprine 10 mg tablet 10 mg PO Q8H PRN (Reason: Muscle spasm) Qty: 14 0RF cyclobenzaprine 10 mg tablet 5 mg PO TID PRN (Reason: back pain) 7 Days Qty: 21 0RF nitrofurantoin monohyd/m-cryst [Macrobid] 100 mg capsule 100 mg PO Q12H 7 Days Qty: 14 0RF Rx Instructions: must administer with a meal/food phenazopyridine 100 mg tablet 100 mg PO TID Qty: 6 0RF metronidazole 500 mg tablet 500 mg PO Q8H 7 Days Qty: 21 0RF Stand Alone Forms: Work/School Release
[2022-09-07] MEDS: Metoclopramide HCl 10 MG/2 ML VIAL IVPUSH (04:00)
[2022-09-07] MEDS: 0.9 % Sodium Chloride 1,000 ML 999 ML IV (04:01)
[2022-09-07] MEDS: diphenhydrAMINE HCL 50 MG/ML VIAL IVPUSH (04:01)
[2022-09-07] MEDS: Ketorolac Tromethamine 15 MG/ML VIAL IVPUSH (04:01)
[2022-09-07 04:08] LABS: Basophils Percent Auto 0.3 % (0-2); Eosinophils Absolute Auto 0.2 X10*3/uL (0.0-0.4); Hematocrit 41.4 % (37.0-47.0); Hemoglobin 13.5 g/dl (12.0-16.0); Imm Gran Abs Auto 0.08 X10*3/uL (0.00-0.03); Imm Gran Pct Auto 0.7 % (0.0-0.4); Lymphocytes Absolute Auto 4.1 X10*3/uL (1.2-4.9); Lymphocytes Percent Auto 34.1 % (20-40); MANUAL DIFF FLAG NO; Mean Corpuscular HGB Conc 32.6 g/dl (31.0-35.0); Mean Corpuscular Hemoglobin 27.1 pg (27.0-33.0); Monocytes Percent Auto 8.4 % (2-11); Neutrophils Absolute Auto 6.5 x10*3/uL (2.0-8.3); Neutrophils Percent Auto 54.5 % (45-73); Platelet Count 269 X10*3/uL (160-400); Red Blood Count 4.99 X10*6/uL (4.20-5.50); Red Cell Distribution Width 13.3 % (11.0-16.0); White Blood Count 11.9 X10*3/uL (4.8-10.8)
[2022-09-07 04:28] LABS: Alanine Aminotransferase 16 U/L (0-31); Albumin Level 4.1 g/dL (3.5-5.0); Alkaline Phosphatase 57 U/L (39-117); Anion Gap 16 (12-20); Aspartate Amino Transferase 13 U/L (5-31); Bilirubin Total 0.3 mg/dL (0.0-1.0); Blood Urea Nitrogen 9 mg/dL (9-16); Calcium 9.3 mg/dL (8.4-10.2); Carbon Dioxide 24 mmol/L (22-29); Chloride 104 mmol/L (96-108); Creatinine Clr Calc Pharmacy 148.8; Estimated Glomerular Filt Rate > 60; Glucose Random 89 mg/dL (60-115); Lipase 66 U/L (8-78); Potassium 3.9 mmol/L (3.3-5.1); Sodium 140 mmol/L (135-145); Total Protein 6.9 g/dL (6.5-8.0)
[2022-09-07 04:29] LABS: Troponin-I High Sensitivity < 3.5 ng/L (<3.5-17.0)
== END 2022-09-07 06:46 | disposition home or self-care (01) ==
PROVIDERS: Emergency Provider Emergency Medicine Emergency Medical Services
DX: R42 Dizziness and giddiness (principal); G43.909 Migraine, unspecified, not intractable, without status migrainosus; F41.9 Anxiety disorder, unspecified; Z79.899 Other long term (current) drug therapy
CPT/HCPCS: 36415; 80053; 81001; 81003; 83690; 84484; 85025; 87086; 93005; 96361; 96374; 96375; 99284; 99285; J1200; J1885; J2765

== ENCOUNTER 2023-02-23 11:31 | Emergency (ER) | payer OTHER, SELFPAY ==
--- NOTE | ~2023-02-23 | XR_ITS ---
EXAMINATION: XR CHEST CLINICAL INFORMATION: Pain COMPARISON: 02/16/22 TECHNIQUE: 2 views of the chest were obtained. FINDINGS: The lungs are well expanded. There is no focal consolidation, edema, or effusion. No pneumothorax. The cardiomediastinal silhouette is within normal limits. No acute osseous abnormality. XR/XR chest 2V IMPRESSION: Clear lungs.
--- NOTE | ~2023-02-23 | CT_ITS ---
EXAMINATION: CT head/brain wo IV con CLINICAL INFORMATION: Reason for Exam New onset of absence seizure COMPARISON: None. TECHNIQUE: Contiguous axial imaging was performed from the skull base to vertex without intravenous contrast. Sagittal and coronal reformatted images were obtained. This CT examination was performed using dose optimization techniques as appropriate, variously including the following: * Automated exposure control * Adjustment of mA and/or kV according to patient size (this includes techniques or standardized protocols for targeted exams where dose is matched to indication/reason for exam; i.e. extremities or head) Use of iterative reconstruction technique DLP: 723.26 mGy-cm FINDINGS: No acute osseous or soft tissue abnormality. The mastoid air cells and visualized portions of the paranasal sinuses are well aerated. There is no evidence of acute intracranial hemorrhage or territorial infarction. No abnormal mass effect or midline shift is seen. Jacobo to white matter differentiation is well preserved. No extra-axial fluid collections are identified. No hydrocephalus. No significant volume loss. There is no abnormal attenuation within the brain parenchyma. CT/CT head/brain wo IV con IMPRESSION: No acute intracranial abnormality including hemorrhage, mass effect, hydrocephalus, or acute territorial edematous infarction.
[2023-02-23 11:36] VITALS: BP 140/93; PULSE 108; RESP 18; TEMP 36.9; O2SAT 98; BMI 44.6
--- NOTE | 2023-02-23 11:39 | ECG_ITS ---
Test Reason : abd pain Blood Pressure : / mmHG Vent. Rate : 094 BPM Atrial Rate : 094 BPM P-R Int : 160 ms QRS Dur : 072 ms QT Int : 342 ms P-R-T Axes : 050 020 008 degrees QTc Int : 427 ms Normal sinus rhythm Normal ECG When compared with ECG of 07-SEP-2022 05:03, No significant change was found Referred By: Emmett Hutson Electronically Signed By:LESLIE GARCÍA
--- NOTE | 2023-02-23 11:40 | ED_ITS ---
HPI - General Adult General Chief complaint: General Medical <Emmett Hutson - Last Filed: 02/23/23 11:41> Stated complaint: Lightheaded Dizzy <Emmett Hutson - Last Filed: 02/23/23 11:41> Time Seen by Provider: 02/23/23 18:23 <Emmett Hutson - Last Filed: 02/23/23 11:41> Source: patient <Arnold Weber MD - Last Filed: 02/23/23 19:42> Mode of arrival: ambulatory <Arnold Weber MD - Last Filed: 02/23/23 19:42> Limitations: no limitations <Arnold Weber MD - Last Filed: 02/23/23 19:42> History of Present Illness HPI narrative: Patient with history of anxiety depression, IBS comes in with multiple complaints feels foggy lightheaded sometimes family noticed patient eyes were fluttering questionable absence seizure patient unaware of that?? No headache no head injury no nausea no vomiting no fever <Arnold Weber MD - Last Filed: 02/23/23 19:42> Related Data Home medications: Previous Rx's Medication Instructions Recorded acetaminophen 500 mg tablet 500 mg PO Q6H PRN pain or fever 01/04/21 (Tylenol Extra Strength) #20 tabs lidocaine 5 % topical patch 1 patch topical DAILY PRN pain #30 01/04/21 (Lidoderm) ea kervaqhfks-oianchxvvauxt-nyvprewj 1 cap PO Q6H PRN pain #20 caps 03/20/21 50 mg-300 mg-40 mg capsule (Fioricet) sumatriptan succinate 50 mg tablet See Rx Instructions PO .COMPLEX 03/20/21 (Imitrex) #10 tabs ibuprofen 600 mg tablet 600 mg PO Q6H PRN pain #20 tabs 12/14/21 cyclobenzaprine 10 mg tablet 5 mg PO TID PRN back pain 7 days 04/26/22 #21 tabs albuterol sulfate 90 mcg/actuation 2 puff inhalation QID PRN 05/06/22 aerosol inhaler (ProAir HFA) shortness of breath or wheezing #8.5 grams ketorolac 10 mg tablet 10 mg PO Q8H PRN pain #20 tabs 05/06/22 ondansetron 4 mg disintegrating 4 mg PO Q8H 3 days #9 tabs 05/06/22 tablet nitrofurantoin 100 mg PO Q12H 7 days #14 caps 06/15/22 monohydrate/macrocrystals 100 mg capsule (Macrobid) phenazopyridine 100 mg tablet 100 mg PO TID 6 doses #6 tabs 06/15/22 cefuroxime axetil 250 mg tablet 250 mg PO BID 7 days #14 tabs 06/25/22 cyclobenzaprine 10 mg tablet 10 mg PO Q8H PRN Muscle spasm #14 06/25/22 tabs ketorolac 10 mg tablet 10 mg PO Q8H PRN pain #14 tabs 06/25/22 metronidazole 500 mg tablet 500 mg PO Q8H 7 days #21 tabs 08/03/22 <Emmett Hutson - Last Filed: 02/23/23 11:41> Allergies/adverse reactions: Allergies Allergy/AdvReac Type Severity Reaction Status Date / Time nickel Allergy Hives Verified 02/23/23 11:39 propylene glycol Allergy Hives Verified 02/23/23 11:39 <Emmett Hutson - Last Filed: 02/23/23 11:41> Review of Systems Review of Systems: Yes all other systems are reviewed and are negative <Arnold Weber MD - Last Filed: 02/23/23 19:42> [facility] Past Medical History Medical History: Medical History Anxiety Migraines Scarlet fever Sciatic leg pain <Emmett Hutson - Last Filed: 02/23/23 11:41> Surgical History: Surgical History H/O adenoidectomy Hx of tonsillectomy <Emmett Hutson - Last Filed: 02/23/23 11:41> Social History Social History: Social History Smoked in Last 30 Days: Yes Use of substances other than those prescribed or required for medical reasons: Yes Substance Use Type: Marijuana Substance Use Frequency: Occasionally Advance Directives: No Advance Directives Information Provided: No <Emmett Hutson - Last Filed: 02/23/23 11:41> Physical Exam ED Vital Signs: Vital Signs - 24 hr 02/23/23 11:36 02/23/23 15:17 02/23/23 18:12 Temperature 98.4 F 98.4 F 98.2 F Pulse Rate 108 H 84 79 Respiratory Rate 18 16 16 Blood Pressure 140/93 H 127/75 118/67 Pulse Oximetry 98 98 98 Oxygen Delivery Method Room Air Room Air Room Air BMI result Body Mass Index 44.6 <Emmett Hutson - Last Filed: 02/23/23 11:41> Vital Signs - 24 hr 02/23/23 11:36 02/23/23 15:17 02/23/23 18:12 Temperature 98.4 F 98.4 F 98.2 F Pulse Rate 108 H 84 79 Respiratory Rate 18 16 16 Blood Pressure 140/93 H 127/75 118/67 Pulse Oximetry 98 98 98 Oxygen Delivery Method Room Air Room Air Room Air BMI result Body Mass Index 44.6 <Arnold Weber MD - Last Filed: 02/23/23 19:42> Appearance: Alert. Oriented X3. No acute distress. Eyes: PERRLA, No Nystagmus ENT: Pharynx normal. Oral Mucosa moist Neck: Normal inspection. Neck supple. CVS: Normal heart rate and rhythm. Pulses normal. Respiratory: No respiratory distress. Equal air entry bilateral, no wheezing/rales/rhonchi Abdomen: Soft and nontender. Bowel sounds are present, no mass palpable, no CVA tenderness Skin: Skin warm and dry. Normal skin color. Normal skin turgor. Extremities: No lower extremity edema. No calf tenderness Neuro: Oriented X 3. No motor deficit. No sensory deficit.No cerebellar signs , cranial nerves II-XII intact <Arnold Weber MD - Last Filed: 02/23/23 19:42> Course Course Course Narrative: RME- [age] year female past medical history significant for IBS, anxiety, PTSD presents for evaluation of lightheadedness and ?nearly passing out yesterday. ? The patient reported chest pain and dizziness yesterday but no chest pain today. She is well appearing, with stable vital signs. No neuro deficits. Plan for labs, EKG, chest x-ray and UA <Emmett Hutson - Last Filed: 02/23/23 11:41> Medical Decision Making Medical Decision Making [facility] Narrative: Patient had CT negative labs are stable likely anxiety/absence seizure advised to follow with PCP/neurologist <Arnold Weber MD - Last Filed: 0 02/23/23 19:42> Lab Data [facility] Lab Attestation statement: I reviewed the patient's lab results. <Arnold Weber MD - Last Filed: 02/23/23 19:42> Result Diagrams: 02/23/23 12:05 02/23/23 12:05 <Emmett Hutson - Last Filed: 02/23/23 11:41> Labs: Lab Results 02/23/23 02/23/23 02/23/23 Range/Units 12:05 12:05 12:05 WBC 10.1 (4.8-10.8) X10*3/uL RBC 5.12 (4.20-5.50) X10*6/uL Hgb 13.7 (12.0-16.0) g/dl Hct 42.3 (37.0-47.0) % MCV 82.6 (80.0-98.0) fL MCH 26.8 L (27.0-33.0) pg MCHC 32.4 (31.0-35.0) g/dl RDW 14.6 (11.0-16.0) % Plt Count 291 (160-400) X10*3/uL MPV 9.7 (9.4-12.3) fL Immature Gran % (Auto) 0.7 H (0.0-0.4) % Neut % (Auto) 63.0 (45-73) % Lymph % (Auto) 27.4 (20-40) % Phillips % (Auto) 6.3 (2-11) % Eos % (Auto) 2.2 (0-4) % Baso % (Auto) 0.4 (0-2) % Lymph # (Auto) 2.8 (1.2-4.9) X10*3/uL Phillips # (Auto) 0.6 (0.1-1.2) X10*3/uL Eos # (Auto) 0.2 (0.0-0.4) X10*3/uL Baso # (Auto) 0.0 (0.0-0.2) X10*3/uL Abs Immat Gran (auto) 0.07 H (0.00-0.03) X10*3/uL Absolute Neuts (auto) 6.4 (2.0-8.3) x10*3/uL Absolute Nucleated RBC 0.000 (0.0-0.012) X10*3/uL Nucleated RBC % (auto) 0.0 (0.0-0.2) /100WBC Sodium 140 (135-145) mmol/L Potassium 4.1 (3.3-5.1) mmol/L Chloride 108 (96-108) mmol/L Carbon Dioxide 23 (22-29) mmol/L Anion Gap 13 (12-20) BUN 9 (9-16) mg/dL Creatinine 0.77 (0.5-1.4) mg/dL Estim Creat Clear Calc 145.9 Estimated GFR > 60 Random Glucose 121 H (60-115) mg/dL Calcium 9.3 (8.4-10.2) mg/dL Magnesium 1.9 (1.6-2.6) mg/dL Total Bilirubin 0.2 (0.0-1.0) mg/dL AST 13 (5-31) U/L ALT 15 (0-31) U/L Alkaline Phosphatase 61 (39-117) U/L Troponin I High Sens < 2.7 (<3.5-17.0) ng/L Total Protein 6.8 (6.5-8.0) g/dL Albumin 4.1 (3.5-5.0) g/dL Lipase 46 (8-78) U/L Urine Color Urine Appearance Urine pH (5.0-9.0) Ur Specific [place] (1.005-1.025) Urine Protein (Neg-Trace) mg/dL Urine Glucose (UA) (Negative) mg/dL Urine Ketones (Negative) mg/dL Urine Blood (Negative) Urine Nitrite (Negative) Ur Leukocyte Esterase (Negative) Urine RBC (0-2) /HPF Urine WBC (0-5) /HPF Ur Squamous Epith Cells (0-2) /HPF Urine Bacteria (None Seen) Hyaline Casts (0-2) /LPF Urine Test (NEGATIVE) Influenza Type A (PCR) (Negative) Influenza Type B (PCR) (Negative) RSV RNA Qual (PCR) (Negative) SARS-CoV-2 RNA (RT-PCR) (Negative) 02/23/23 02/23/23 02/23/23 Range/Units 12:05 16:09 16:09 WBC (4.8-10.8) X10*3/uL RBC (4.20-5.50) X10*6/uL Hgb (12.0-16.0) g/dl Hct (37.0-47.0) % MCV (80.0-98.0) fL MCH (27.0-33.0) pg MCHC (31.0-35.0) g/dl RDW (11.0-16.0) % Plt Count (160-400) X10*3/uL MPV (9.4-12.3) fL Immature Gran % (Auto) (0.0-0.4) % Neut % (Auto) (45-73) % Lymph % (Auto) (20-40) % Phillips % (Auto) (2-11) % Eos % (Auto) (0-4) % Baso % (Auto) (0-2) % Lymph # (Auto) (1.2-4.9) X10*3/uL Phillips # (Auto) (0.1-1.2) X10*3/uL Eos # (Auto) (0.0-0.4) X10*3/uL Baso # (Auto) (0.0-0.2) X10*3/uL Abs Immat Gran (auto) (0.00-0.03) X10*3/uL Absolute Neuts (auto) (2.0-8.3) x10*3/uL Absolute Nucleated RBC (0.0-0.012) X10*3/uL Nucleated RBC % (auto) (0.0-0.2) /100WBC Sodium (135-145) mmol/L Potassium (3.3-5.1) mmol/L Chloride (96-108) mmol/L Carbon Dioxide (22-29) mmol/L Anion Gap (12-20) BUN (9-16) mg/dL Creatinine (0.5-1.4) mg/dL Estim Creat Clear Calc Estimated GFR Random Glucose (60-115) mg/dL Calcium (8.4-10.2) mg/dL Magnesium (1.6-2.6) mg/dL Total Bilirubin (0.0-1.0) mg/dL AST (5-31) U/L ALT (0-31) U/L Alkaline Phosphatase (39-117) U/L Troponin I High Sens (<3.5-17.0) ng/L Total Protein (6.5-8.0) g/dL Albumin (3.5-5.0) g/dL Lipase (8-78) U/L Urine Color Yellow Urine Appearance Clear Urine pH 5.5 (5.0-9.0) Ur Specific [place] 1.010 (1.005-1.025) Urine Protein Negative (Neg-Trace) mg/dL Urine Glucose (UA) Negative (Negative) mg/dL Urine Ketones Negative (Negative) mg/dL Urine Blood Negative (Negative) Urine Nitrite Negative (Negative) Ur Leukocyte Esterase Trace H (Negative) Urine RBC 0-2 (0-2) /HPF Urine WBC 0-5 (0-5) /HPF Ur Squamous Epith Cells 0-2 (0-2) /HPF Urine Bacteria None Seen (None Seen) Hyaline Casts 0-2 (0-2) /LPF Urine Test NEGATIVE (NEGATIVE) Influenza Type A (PCR) NEGATIVE (Negative) Influenza Type B (PCR) NEGATIVE (Negative) RSV RNA Qual (PCR) NEGATIVE (Negative) SARS-CoV-2 RNA (RT-PCR) NEGATIVE (Negative) <Emmett Hutson - Last Filed: 02/23/23 11:41> Lab Results 02/23/23 02/23/23 02/23/23 Range/Units 12:05 12:05 12:05 WBC 10.1 (4.8-10.8) X10*3/uL RBC 5.12 (4.20-5.50) X10*6/uL Hgb 13.7 (12.0-16.0) g/dl Hct 42.3 (37.0-47.0) % MCV 82.6 (80.0-98.0) fL MCH 26.8 L (27.0-33.0) pg MCHC 32.4 (31.0-35.0) g/dl RDW 14.6 (11.0-16.0) % Plt Count 291 (160-400) X10*3/uL MPV 9.7 (9.4-12.3) fL Immature Gran % (Auto) 0.7 H (0.0-0.4) % Neut % (Auto) 63.0 (45-73) % Lymph % (Auto) 27.4 (20-40) % Phillips % (Auto) 6.3 (2-11) % Eos % (Auto) 2.2 (0-4) % Baso % (Auto) 0.4 (0-2) % Lymph # (Auto) 2.8 (1.2-4.9) X10*3/uL Phillips # (Auto) 0.6 (0.1-1.2) X10*3/uL Eos # (Auto) 0.2 (0.0-0.4) X10*3/uL Baso # (Auto) 0.0 (0.0-0.2) X10*3/uL Abs Immat Gran (auto) 0.07 H (0.00-0.03) X10*3/uL Absolute Neuts (auto) 6.4 (2.0-8.3) x10*3/uL Absolute Nucleated RBC 0.000 (0.0-0.012) X10*3/uL Nucleated RBC % (auto) 0.0 (0.0-0.2) /100WBC Sodium 140 (135-145) mmol/L Potassium 4.1 (3.3-5.1) mmol/L Chloride 108 (96-108) mmol/L Carbon Dioxide 23 (22-29) mmol/L Anion Gap 13 (12-20) BUN 9 (9-16) mg/dL Creatinine 0.77 (0.5-1.4) mg/dL Estim Creat Clear Calc 145.9 Estimated GFR > 60 Random Glucose 121 H (60-115) mg/dL Calcium 9.3 (8.4-10.2) mg/dL Magnesium 1.9 (1.6-2.6) mg/dL Total Bilirubin 0.2 (0.0-1.0) mg/dL AST 13 (5-31) U/L ALT 15 (0-31) U/L Alkaline Phosphatase 61 (39-117) U/L Troponin I High Sens < 2.7 (<3.5-17.0) ng/L Total Protein 6.8 (6.5-8.0) g/dL Albumin 4.1 (3.5-5.0) g/dL Lipase 46 (8-78) U/L Urine Color Urine Appearance Urine pH (5.0-9.0) Ur Specific [place] (1.005-1.025) Urine Protein (Neg-Trace) mg/dL Urine Glucose (UA) (Negative) mg/dL Urine Ketones (Negative) mg/dL Urine Blood (Negative) Urine Nitrite (Negative) Ur Leukocyte Esterase (Negative) Urine RBC (0-2) /HPF Urine WBC (0-5) /HPF Ur Squamous Epith Cells (0-2) /HPF Urine Bacteria (None Seen) Hyaline Casts (0-2) /LPF Urine Test (NEGATIVE) Influenza Type A (PCR) (Negative) Influenza Type B (PCR) (Negative) RSV RNA Qual (PCR) (Negative) SARS-CoV-2 RNA (RT-PCR) (Negative) 02/23/23 02/23/23 02/23/23 Range/Units 12:05 16:09 16:09 WBC (4.8-10.8) X10*3/uL RBC (4.20-5.50) X10*6/uL Hgb (12.0-16.0) g/dl Hct (37.0-47.0) % MCV (80.0-98.0) fL MCH (27.0-33.0) pg MCHC (31.0-35.0) g/dl RDW (11.0-16.0) % Plt Count (160-400) X10*3/uL MPV (9.4-12.3) fL Immature Gran % (Auto) (0.0-0.4) % Neut % (Auto) (45-73) % Lymph % (Auto) (20-40) % Phillips % (Auto) (2-11) % Eos % (Auto) (0-4) % Baso % (Auto) (0-2) % Lymph # (Auto) (1.2-4.9) X10*3/uL Phillips # (Auto) (0.1-1.2) X10*3/uL Eos # (Auto) (0.0-0.4) X10*3/uL Baso # (Auto) (0.0-0.2) X10*3/uL Abs Immat Gran (auto) (0.00-0.03) X10*3/uL Absolute Neuts (auto) (2.0-8.3) x10*3/uL Absolute Nucleated RBC (0.0-0.012) X10*3/uL Nucleated RBC % (auto) (0.0-0.2) /100WBC Sodium (135-145) mmol/L Potassium (3.3-5.1) mmol/L Chloride (96-108) mmol/L Carbon Dioxide (22-29) mmol/L Anion Gap (12-20) BUN (9-16) mg/dL Creatinine (0.5-1.4) mg/dL Estim Creat Clear Calc Estimated GFR Random Glucose (60-115) mg/dL Calcium (8.4-10.2) mg/dL Magnesium (1.6-2.6) mg/dL Total Bilirubin (0.0-1.0) mg/dL AST (5-31) U/L ALT (0-31) U/L Alkaline Phosphatase (39-117) U/L Troponin I High Sens (<3.5-17.0) ng/L Total Protein (6.5-8.0) g/dL Albumin (3.5-5.0) g/dL Lipase (8-78) U/L Urine Color Yellow Urine Appearance Clear Urine pH 5.5 (5.0-9.0) Ur Specific [place] 1.010 (1.005-1.025) Urine Protein Negative (Neg-Trace) mg/dL Urine Glucose (UA) Negative (Negative) mg/dL Urine Ketones Negative (Negative) mg/dL Urine Blood Negative (Negative) Urine Nitrite Negative (Negative) Ur Leukocyte Esterase Trace H (Negative) Urine RBC 0-2 (0-2) /HPF Urine WBC 0-5 (0-5) /HPF Ur Squamous Epith Cells 0-2 (0-2) /HPF Urine Bacteria None Seen (None Seen) Hyaline Casts 0-2 (0-2) /LPF Urine Test NEGATIVE (NEGATIVE) Influenza Type A (PCR) NEGATIVE (Negative) Influenza Type B (PCR) NEGATIVE (Negative) RSV RNA Qual (PCR) NEGATIVE (Negative) SARS-CoV-2 RNA (RT-PCR) NEGATIVE (Negative) <Arnold Weber MD - Last Filed: 02/23/23 19:42> Discharge Plan Discharge Clinical Impression: Absence seizure disorder, Anxiety and depression <Emmett Hutson - Last Filed: 02/23/23 11:41> Patient Disposition: Home, Self-Care <Emmett Hutson - Last Filed: 02/23/23 11:41> Instructions: Anxiety (ED), New Onset Absence Seizures in Adults (ED) <Emmett Hutson - Last Filed: 02/23/23 11:41> Additional Instructions: Continue your medications Drink plenty of fluid Follow with PCP/neurology <Emmett Hutson - Last Filed: 02/23/23 11:41> Prescriptions: No Action acetaminophen [Tylenol Extra Strength] 500 mg tablet 500 mg PO Q6H PRN (Reason: pain or fever) Qty: 20 0RF lidocaine [Lidoderm] 5 % adhesive patch,medicated 1 patch topical DAILY MDD remove after 12 hours PRN (Reason: pain) Qty: 30 0RF Rx Instructions: leave on most painful area for up to 12 hrs sumatriptan succinate [Imitrex] 50 mg tablet See Rx Instructions .ROUTE .COMPLEX Qty: 10 0RF Rx Instructions: take 1 tab at onset of headache; if no relief may repeat 1 tab after at least 2 hrs; max = 2 tabs/24 hr [id number] [Fioricet] 50-300-40 mg capsule 1 cap PO Q6H PRN (Reason: pain) Qty: 20 0RF ibuprofen 600 mg tablet 600 mg PO Q6H PRN (Reason: pain) Qty: 20 0RF ondansetron 4 mg tablet,disintegrating 4 mg PO Q8H 3 Days Qty: 9 0RF albuterol sulfate [ProAir HFA] 90 mcg/actuation HFA aerosol inhaler 2 puff inhalation QID PRN (Reason: shortness of breath or wheezing) Qty: 8.5 0RF ketorolac 10 mg tablet 10 mg PO Q8H PRN (Reason: pain) Qty: 20 0RF cefuroxime axetil 250 mg tablet 250 mg PO BID 7 Days Qty: 14 0RF ketorolac 10 mg tablet 10 mg PO Q8H PRN (Reason: pain) Qty: 14 0RF cyclobenzaprine 10 mg tablet 10 mg PO Q8H PRN (Reason: Muscle spasm) Qty: 14 0RF cyclobenzaprine 10 mg tablet 5 mg PO TID PRN (Reason: back pain) 7 Days Qty: 21 0RF nitrofurantoin monohyd/m-cryst [Macrobid] 100 mg capsule 100 mg PO Q12H 7 Days Qty: 14 0RF Rx Instructions: must administer with a meal/food phenazopyridine 100 mg tablet 100 mg PO TID Qty: 6 0RF metronidazole 500 mg tablet 500 mg PO Q8H 7 Days Qty: 21 0RF <Emmett Hutson - Last Filed: 02/23/23 11:41> Referrals: Lashell Burnett MD [Physician] - 1 week <Emmett Hutson - Last Filed: 02/23/23 11:41>
[2023-02-23 12:16] LABS: MANUAL DIFF FLAG NO
[2023-02-23 12:19] LABS: Basophils Percent Auto 0.4 % (0-2); Eosinophils Absolute Auto 0.2 X10*3/uL (0.0-0.4); Eosinophils Percent Auto 2.2 % (0-4); Hematocrit 42.3 % (37.0-47.0); Hemoglobin 13.7 g/dl (12.0-16.0); Imm Gran Abs Auto 0.07 X10*3/uL (0.00-0.03); Imm Gran Pct Auto 0.7 % (0.0-0.4); Lymphocytes Absolute Auto 2.8 X10*3/uL (1.2-4.9); Lymphocytes Percent Auto 27.4 % (20-40); Mean Corpuscular HGB Conc 32.4 g/dl (31.0-35.0); Mean Corpuscular Hemoglobin 26.8 pg (27.0-33.0); Mean Corpuscular Volume 82.6 fL (80.0-98.0); Mean Platelet Volume 9.7 fL (9.4-12.3); Monocytes Absolute Auto 0.6 X10*3/uL (0.1-1.2); Monocytes Percent Auto 6.3 % (2-11); Neutrophils Absolute Auto 6.4 x10*3/uL (2.0-8.3); Platelet Count 291 X10*3/uL (160-400); Red Blood Count 5.12 X10*6/uL (4.20-5.50); Red Cell Distribution Width 14.6 % (11.0-16.0); White Blood Count 10.1 X10*3/uL (4.8-10.8)
[2023-02-23 12:37] LABS: Alanine Aminotransferase 15 U/L (0-31); Albumin Level 4.1 g/dL (3.5-5.0); Alkaline Phosphatase 61 U/L (39-117); Anion Gap 13 (12-20); Aspartate Amino Transferase 13 U/L (5-31); Bilirubin Total 0.2 mg/dL (0.0-1.0); Blood Urea Nitrogen 9 mg/dL (9-16); Calcium 9.3 mg/dL (8.4-10.2); Carbon Dioxide 23 mmol/L (22-29); Chloride 108 mmol/L (96-108); Creatinine Clr Calc Pharmacy 145.9; Estimated Glomerular Filt Rate > 60; Glucose Random 121 mg/dL (60-115); Lipase 46 U/L (8-78); Magnesium 1.9 mg/dL (1.6-2.6); Potassium 4.1 mmol/L (3.3-5.1); Sodium 140 mmol/L (135-145); Total Protein 6.8 g/dL (6.5-8.0)
[2023-02-23 12:50] LABS: Troponin-I High Sensitivity < 2.7 ng/L (<3.5-17.0)
[2023-02-23 12:55] LABS: Influenza A PCR NEGATIVE (Negative); Influenza B PCR NEGATIVE (Negative); Resp Syncy Virus RNA Qual PCR NEGATIVE (Negative); SARS COV2 PCR INHOUSE NEGATIVE (Negative)
[2023-02-23 15:17] VITALS: BP 127/75; PULSE 84; RESP 16; TEMP 36.9; O2SAT 98
--- NOTE | 2023-02-23 16:12 | MHC.EDTECH ---
PT URINE SAMPLE COLLECTED AND SENT TO LAB .
[2023-02-23 16:21] LABS: Appearance Urine Clear; Color Urine Yellow; Glucose Urine UA Negative (Negative); Leukocyte Esterase Urine Trace (Negative); Nitrite Urine Negative (Negative); PH 5.5 (5.0-9.0); UMIC TRIGGER UACC YES; UPreg QC Valid YES; Urine Blood Negative (Negative); Urine Ketones Negative (Negative); Urine Pregnancy NEGATIVE (NEGATIVE); Urine Protein Negative (Neg-Trace)
[2023-02-23 16:23] LABS: Bacteria Urine None Seen (None Seen); Hyaline Casts Urine 0-2 /LPF (0-2); RBC Urine 0-2 /HPF (0-2); Squamous Epithelial Cell Urine 0-2 /HPF (0-2); WBC Urine 0-5 /HPF (0-5)
[2023-02-23 18:12] VITALS: BP 118/67; PULSE 79; RESP 16; TEMP 36.8; O2SAT 98
--- NOTE | 2023-02-23 19:54 | PC.NURSE ---
Assumed care of pt. at 1900. Pt. out for CT scan at that time. Pt. returned and resting quietly in bed. CT scan was negative, pt. d/c'd home with instructions to f/u PCP.
== END 2023-02-23 19:57 | disposition home or self-care (01) ==
PROVIDERS: Physician Assistant; Emergency Provider Internal Medicine
DX: G40.A09 Absence epileptic syndrome, not intractable, without status epilepticus (principal); F41.1 Generalized anxiety disorder; F43.0 Acute stress reaction; F33.1 Major depressive disorder, recurrent, moderate; R42 Dizziness and giddiness; Z20.822 Contact with and (suspected) exposure to COVID-19; Z20.828 Contact with and (suspected) exposure to other viral communicable diseases; Z79.899 Other long term (current) drug therapy
CPT/HCPCS: 0241U; 70450; 71046; 80053; 81001; 81025; 83690; 83735; 84484; 85025; 93005; 99284

== ENCOUNTER 2023-04-28 20:37 | Emergency (ER) | payer OTHER, SELFPAY ==
[2023-04-28 21:09] VITALS: BP 120/74; PULSE 86; RESP 16; TEMP 36.6; O2SAT 98; BMI 44.1
[2023-04-28 22:14] LABS: Hematocrit 43.3 % (37.0-47.0); Hemoglobin 14.1 g/dl (12.0-16.0); Mean Corpuscular HGB Conc 32.6 g/dl (31.0-35.0); Mean Corpuscular Hemoglobin 26.8 pg (27.0-33.0); Mean Corpuscular Volume 82.3 fL (80.0-98.0); Mean Platelet Volume 9.6 fL (9.4-12.3); Platelet Count 321 X10*3/uL (160-400); Red Blood Count 5.26 X10*6/uL (4.20-5.50); Red Cell Distribution Width 14.1 % (11.0-16.0); White Blood Count 12.4 X10*3/uL (4.8-10.8)
[2023-04-28 22:16] LABS: Anion Gap 13 (12-20); Blood Urea Nitrogen 11 mg/dL (9-16); Calcium 9.9 mg/dL (8.4-10.2); Carbon Dioxide 26 mmol/L (22-29); Chloride 105 mmol/L (96-108); Creatinine Clr Calc Pharmacy 138.3; Estimated Glomerular Filt Rate > 60; Glucose Random 94 mg/dL (60-115); Potassium 4.1 mmol/L (3.3-5.1); Sodium 140 mmol/L (135-145)
[2023-04-28 22:25] LABS: Troponin-I High Sensitivity < 2.7 ng/L (<3.5-17.0)
--- NOTE | 2023-04-28 23:21 | ED_ITS ---
HPI - General Adult General Chief complaint: Recheck/Abnormal Lab/Rx Stated complaint: migraine, elevated bp's Time Seen by Provider: 04/28/23 22:15 Source: patient and RN notes reviewed Mode of arrival: ambulatory Limitations: no limitations History of Present Illness HPI narrative: This is a 23-year-old female, with a past medical history of, migraine headaches, presented to emergency department for evaluation of headache and high blood pressure. Patient reports that while she was at work today she felt a he adache set in and her blood pressure was taken. It was taken multiple times on her wrist and it was in the 200/100s. Patient reports over this past week she has had persistent headache which has slightly responded to migraine medication. She has been seen by a neurologist before for these headaches and is prescribed Fioricet. She is not taking her Fioricet. Denies any fevers, chills, vision c hanges, chest pain, shortness of breath, weakness, numbness, or tingling. No other complaints or concerns at this time. MD complaint: Headache Onset (ago): day(s) Radiation: non-radiation Quality: aching Pain Consistency: constant Relieving factors: none Exacerbating factors: none Associated symptoms: denies other symptoms Treatments prior to arrival: none Related Data Previous Rx's Medication Instructions Recorded acetaminophen 500 mg tablet 500 mg PO Q6H PRN pain or fever 01/04/21 (Tylenol Extra Strength) #20 tabs lidocaine 5 % topical patch 1 patch topical DAILY PRN pain #30 01/04/21 (Lidoderm) ea iugrroxfqi-zmdbvsfddrmcl-[id number] 1 cap PO Q6H PRN pain #20 caps 03/20/21 50 mg-300 mg-40 mg capsule (Fioricet) sumatriptan succinate 50 mg tablet See Rx Instructions PO .COMPLEX 03/20/21 (Imitrex) #10 tabs ibuprofen 600 mg tablet 600 mg PO Q6H PRN pain #20 tabs 12/14/21 cyclobenzaprine 10 mg tablet 5 mg PO TID PRN back pain 7 days 04/26/22 #21 tabs albuterol sulfate 90 mcg/actuation 2 puff inhalation QID PRN 05/06/22 aerosol inhaler (ProAir HFA) shortness of breath or wheezing #8.5 grams ketorolac 10 mg tablet 10 mg PO Q8H PRN pain #20 tabs 05/06/22 ondansetron 4 mg disintegrating 4 mg PO Q8H 3 days #9 tabs 05/06/22 tablet nitrofurantoin 100 mg PO Q12H 7 days #14 caps 06/15/22 monohydrate/macrocrystals 100 mg capsule (Macrobid) phenazopyridine 100 mg tablet 100 mg PO TID 6 doses #6 tabs 06/15/22 cefuroxime axetil 250 mg tablet 250 mg PO BID 7 days #14 tabs 06/25/22 cyclobenzaprine 10 mg tablet 10 mg PO Q8H PRN Muscle spasm #14 06/25/22 tabs ketorolac 10 mg tablet 10 mg PO Q8H PRN pain #14 tabs 06/25/22 metronidazole 500 mg tablet 500 mg PO Q8H 7 days #21 tabs 08/03/22 Allergies Allergy/AdvReac Type Severity Reaction Status Date / Time nickel Allergy Hives Verified 04/28/23 21:09 propylene glycol Allergy Hives Verified 04/28/23 21:09 Review of Systems Review of Systems: Yes all other systems are reviewed and are negative Constitutional: Constitutional: Reports as per [facility] Past Medical History Medical History Anxiety Migraines Scarlet fever Sciatic leg pain Surgical History H/O adenoidectomy Hx of tonsillectomy Social History Social History Substance Use Type: Marijuana Advance Directives: No Advance Directives Information Provided: No Physical Exam ED Vital Signs: Vital Signs - 24 hr 04/28/23 21:09 Temperature 97.8 F Pulse Rate 86 Respiratory Rate 16 Blood Pressure 120/74 Pulse Oximetry 98 Oxygen Delivery Method Room Air BMI result Body Mass Index 44.1 Const General: cooperative, comfortable and no acute distress Orientation/consciousness: patient oriented x3 Limitations: no limitations HENMT Head: Yes normal to inspection, Yes normocephalic and Yes atraumatic Ears: hearing grossly normal bilaterally General nose exam: Normal external nose present Face and sinus: Yes normal facial exam Mouth: Normal oral and palatal mucosa present, oropharynx normal and moist mucous membranes Throat: Yes posterior oropharynx normal Eyes General: appearance normal, both eyes and all related structures Eyelids: Yes eyelids normal Conjunctivae: conjunctivae normal Sclerae: sclerae normal Pupils: Equal, round and reactive pupils present EOM: EOMs intact bilaterally Neck Neck: Yes normal visual inspection, Yes full ROM and Yes no lymphadenopathy Lymphatic: no lymphadenopathy noted Chest Chest palpation & inspection: normal inspection of the chest Resp Effort & Inspection: normal respiratory effort and able to speak in complete sentences Auscultation: clear to auscultation bilaterally, no crackles, no rales, no rhonchi and no wheezes Cardio Rate: regular rate Rhythm: regular rhythm Heart sounds: S1 normal heart sound present and S2 normal heart sound present GI Inspection: Yes normal to inspection Skin General skin exam: no rashes or lesions noted Trauma: no lacerations or abrasions Wounds: no wounds Neuro General: patient oriented x3 and moves all extremities Cranial nerves: Yes CN's II-XII intact bilaterally and Yes Equal, round and reactive pupils present Gait exam (Neuro): Normal gait present Motor exam (neuro): 5/5 motor strength present throughout and Pronator motor function not present Extrem General: Yes normal to inspection Right upper extremity: normal to inspection Left upper extremity: normal to inspection Right lower extremity: normal to inspection Left lower extremity: normal to inspection Medical Decision Making Medical Decision Making [facility] Narrative: 23-year-old female presenting to the emergency department for evaluation of headache or hypertension. Vital signs within normal limits today. Patient not found to be hypertensive. Upon my assessment patient is already feeling better and would like to be discharged today. I advised patient that I could give her a migraine cocktail however patient reports that she is only feeling tired and would like to be discharged home. Patient is fully neurologically intact without any in any focal deficits. Advised patient to follow-up with her neurologist and primary care physician. Patient understands and agrees with plan. Differential Diagnosis Differential Diagnoses: The differential diagnosis associated with the presentation includes Migraine, headache, sinusitis, ICH-less likely, CVA-less likely Admission/Observation Consideration of admission/observation: Escalation of care including admission/observation considered Lab Data [facility] Lab Attestation statement: I reviewed the patient's lab results. Mild leukocytosis, patient has had elevated leukocytosis in the past at other visits, negative troponin 04/28/23 21:59 04/28/23 21:59 Labs: Lab Results 04/28/23 04/28/23 04/28/23 Range/Units 21:59 21:59 21:59 WBC 12.4 H (4.8-10.8) X10*3/uL RBC 5.26 (4.20-5.50) X10*6/uL Hgb 14.1 (12.0-16.0) g/dl Hct 43.3 (37.0-47.0) % MCV 82.3 (80.0-98.0) fL MCH 26.8 L (27.0-33.0) pg MCHC 32.6 (31.0-35.0) g/dl RDW 14.1 (11.0-16.0) % Plt Count 321 (160-400) X10*3/uL MPV 9.6 (9.4-12.3) fL Absolute Nucleated RBC 0.000 (0.0-0.012) X10*3/uL Nucleated RBC % (auto) 0.0 (0.0-0.2) /100WBC Sodium 140 (135-145) mmol/L Potassium 4.1 (3.3-5.1) mmol/L Chloride 105 (96-108) mmol/L Carbon Dioxide 26 (22-29) mmol/L Anion Gap 13 (12-20) BUN 11 (9-16) mg/dL Creatinine 0.80 (0.5-1.4) mg/dL Estim Creat Clear Calc 138.3 Estimated GFR > 60 Random Glucose 94 (60-115) mg/dL Calcium 9.9 D (8.4-10.2) mg/dL Troponin I High Sens < 2.7 (<3.5-17.0) ng/L Discharge Plan Discharge Clinical Impression: Headache Patient Disposition: Home, Self-Care Instructions: Acute Headache (ED) Additional Instructions: Please drink plenty of fluids get plenty of rest. Continue taking your at-home medications. You refused further workup and IV medications to treat your headache. Please follow-up with your primary care physician regarding blood pressure and recurrent headaches. If any new or worsening symptoms occur including but not limited to worse headache of life, vomiting, vision changes weakness, numbness or tingling, please return for re-evaluation. Prescriptions: No Action acetaminophen [Tylenol Extra Strength] 500 mg tablet 500 mg PO Q6H PRN (Reason: pain or fever) Qty: 20 0RF lidocaine [Lidoderm] 5 % adhesive patch,medicated 1 patch topical DAILY MDD remove after 12 hours PRN (Reason: pain) Qty: 30 0RF Rx Instructions: leave on most painful area for up to 12 hrs sumatriptan succinate [Imitrex] 50 mg tablet See Rx Instructions .ROUTE .COMPLEX Qty: 10 0RF Rx Instructions: take 1 tab at onset of headache; if no relief may repeat 1 tab after at least 2 hrs; max = 2 tabs/24 hr pimmysytrb-icrmqhpaqdiho-zoif [Fioricet] 50-300-40 mg capsule 1 cap PO Q6H PRN (Reason: pain) Qty: 20 0RF ibuprofen 600 mg tablet 600 mg PO Q6H PRN (Reason: pain) Qty: 20 0RF ondansetron 4 mg tablet,disintegrating 4 mg PO Q8H 3 Days Qty: 9 0RF albuterol sulfate [ProAir HFA] 90 mcg/actuation HFA aerosol inhaler 2 puff inhalation QID PRN (Reason: shortness of breath or wheezing) Qty: 8.5 0RF ketorolac 10 mg tablet 10 mg PO Q8H PRN (Reason: pain) Qty: 20 0RF cefuroxime axetil 250 mg tablet 250 mg PO BID 7 Days Qty: 14 0RF ketorolac 10 mg tablet 10 mg PO Q8H PRN (Reason: pain) Qty: 14 0RF cyclobenzaprine 10 mg tablet 10 mg PO Q8H PRN (Reason: Muscle spasm) Qty: 14 0RF cyclobenzaprine 10 mg tablet 5 mg PO TID PRN (Reason: back pain) 7 Days Qty: 21 0RF nitrofurantoin monohyd/m-cryst [Macrobid] 100 mg capsule 100 mg PO Q12H 7 Days Qty: 14 0RF Rx Instructions: must administer with a meal/food phenazopyridine 100 mg tablet 100 mg PO TID Qty: 6 0RF metronidazole 500 mg tablet 500 mg PO Q8H 7 Days Qty: 21 0RF Interventions: ED Discharge Assessment Last Done: 04/28/23 23:58 Discharge Date/Time: 04/29/23 00:01
== END 2023-04-29 00:01 | disposition home or self-care (01) ==
PROVIDERS: Emergency Provider Internal Medicine; PCP Internal Medicine
DX: R51.9 Headache, unspecified (principal); F12.90 Cannabis use, unspecified, uncomplicated
CPT/HCPCS: 36415; 80048; 84484; 85027; 99283

== ENCOUNTER 2023-07-22 10:06 | Emergency (ER) | payer OTHER, SELFPAY ==
--- NOTE | ~2023-07-22 | XR_ITS ---
EXAMINATION: XR CHEST CLINICAL INFORMATION: Shortness of breath. Cough. COMPARISON: Multiple priors with the last chest x-ray of 02/23/2023 TECHNIQUE: 2 views of the chest were obtained. FINDINGS: No significant abnormality is noted involving the heart, lungs, mediastinum, bony thorax or soft tissues. XR/XR chest 2V IMPRESSION: No radiographic evidence of pneumonia or pulmonary edema. No acute pulmonary process.
[2023-07-22 10:11] VITALS: BP 144/86; PULSE 82; RESP 18; TEMP 37; O2SAT 98; BMI 50.7
[2023-07-22 11:30] LABS: Influenza A PCR NEGATIVE (Negative); Influenza B PCR NEGATIVE (Negative); Resp Syncy Virus RNA Qual PCR NEGATIVE (Negative); SARS COV2 PCR INHOUSE NEGATIVE (Negative)
--- NOTE | 2023-07-22 12:29 | ED.URI ---
HPI - URI/Sore Throat General Chief Complaint: Upper Respiratory Symptoms Stated Complaint: possible bronchi? Time Seen by Provider: 07/22/23 10:16 Source: patient and RN notes reviewed Mode of arrival: ambulatory Limitations: no limitations History of Present Illness HPI Narrative: This is a 23-year-old female, with a history of asthma, presenting to the emergency department with complaints of cough, sore throat, and body aches x3 days. Patient reports that she has been having to use her inhaler more often due to her symptoms. She denies any fevers, she endorses chills. Denies any chest pain. Endorsing shortness of breath. Also endorsing abdominal pain, nausea, vomiting diarrhea however states this is typical of her irritable bowel syndrome. 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 No other complaints or concerns at this time. MD elicited complaint: sore throat Onset (ago): day(s) Consistency: constant Severity: moderate Description of mucous: clear and watery Able to tolerate fluids by mouth: Yes Exacerbating factors: nothing Relieving factors: nothing Associated symptoms: chills, cough and shortness of breath Treatments prior to arrival: none Related Data Previous Rx's Medication Instructions Recorded acetaminophen 500 mg tablet 500 mg PO Q6H PRN pain or fever 01/04/21 (Tylenol Extra Strength) #20 tabs lidocaine 5 % topical patch 1 patch topical DAILY PRN pain #30 01/04/21 (Lidoderm) ea goblzeblkm-[id number]-rxfrhqpa 1 cap PO Q6H PRN pain #20 caps 03/20/21 50 mg-300 mg-40 mg capsule (Fioricet) sumatriptan succinate 50 mg tablet See Rx Instructions PO .COMPLEX 03/20/21 (Imitrex) #10 tabs ibuprofen 600 mg tablet 600 mg PO Q6H PRN pain #20 tabs 12/14/21 cyclobenzaprine 10 mg tablet 5 mg (1/2 x 10 mg) PO TID PRN back 04/26/22 pain 7 days #21 tabs albuterol sulfate 90 mcg/actuation 2 puff inhalation QID PRN 05/06/22 aerosol inhaler (ProAir HFA) shortness of breath or wheezing #8.5 grams ketorolac 10 mg tablet 10 mg PO Q8H PRN pain #20 tabs 05/06/22 ondansetron 4 mg disintegrating 4 mg PO Q8H 3 days #9 tabs 05/06/22 tablet nitrofurantoin 100 mg PO Q12H 7 days #14 caps 06/15/22 monohydrate/macrocrystals 100 mg capsule (Macrobid) phenazopyridine 100 mg tablet 100 mg PO TID 6 doses #6 tabs 06/15/22 cefuroxime axetil 250 mg tablet 250 mg PO BID 7 days #14 tabs 06/25/22 cyclobenzaprine 10 mg tablet 10 mg PO Q8H PRN Muscle spasm #14 06/25/22 tabs ketorolac 10 mg tablet 10 mg PO Q8H PRN pain #14 tabs 06/25/22 metronidazole 500 mg tablet 500 mg PO Q8H 7 days #21 tabs 08/03/22 benzonatate 200 mg capsule 200 mg PO TID PRN cough 7 days #14 07/22/23 caps ondansetron HCl 4 mg tablet 4 mg PO Q6-8H PRN nausea and 07/22/23 vomiting #10 tabs Allergies Allergy/AdvReac Type Severity Reaction Status Date / Time nickel Allergy Hives Verified 07/22/23 10:11 propylene glycol Allergy Hives Verified 07/22/23 10:11 Review of Systems Review of Systems: Yes all other systems are reviewed and are negative Constitutional: Constitutional: Reports as per [facility] Past Medical History Medical History Anxiety Migraines Scarlet fever Sciatic leg pain Surgical History H/O adenoidectomy Hx of tonsillectomy Social History Social History Substance Use Type: Marijuana Advance Directives: No Advance Directives Information Provided: No Physical Exam Vital Signs: Vital Signs: Last Vital Signs Temp 98.6 F 07/22/23 10:11 Pulse 78 07/22/23 13:59 Resp 16 07/22/23 13:59 BP 118/78 07/22/23 13:59 Pulse Ox 98 09/17/23 13:59 O2 Del Method Room Air 07/22/23 13:59 BMI result Body Mass Index 50.7 Const: General: cooperative, comfortable and no acute distress Orientation/consciousness: patient oriented x3 Limitations: no limitations HEENT: Other: Oropharynx without any evidence of tonsillar hypertrophy or exudates. Uvula is midline. No oropharyngeal erythema or edema noted, airway patent. Head: Yes normal to inspection, Yes normocephalic and Yes atraumatic Ears: hearing grossly normal bilaterally General nose exam: Normal external nose present Face and sinus: Yes normal facial exam Mouth: Normal oral and palatal mucosa present, oropharynx normal and moist mucous membranes Throat: Yes posterior oropharynx normal Eyes: General: appearance normal, both eyes and all related structures Eyelids: Yes eyelids normal Conjunctivae: conjunctivae normal Sclerae: sclerae normal Pupils: Equal, round and reactive pupils present EOM: EOMs intact bilaterally Neck: Neck: Yes normal visual inspection, Yes full ROM and Yes no lymphadenopathy Lymphatic: no lymphadenopathy noted Chest: Chest palpation & inspection: normal inspection of the chest Resp: Effort & Inspection: normal respiratory effort and able to speak in complete sentences Auscultation: clear to auscultation bilaterally, no crackles, no rales, no rhonchi and no wheezes Cardio: Rate: regular rate Rhythm: regular rhythm Heart sounds: S1 normal heart sound present and S2 normal heart sound present GI: Other: Abdomen is soft, nontender, nondistended, normoactive bowel sounds present in all 4 quadrants. Inspection: Yes normal to inspection Skin: General skin exam: no rashes or lesions noted Trauma: no lacerations or abrasions Wounds: no wounds Neuro: General: patient oriented x3 and moves all extremities Cranial nerves: Yes Equal, round and reactive pupils present Extrem: General: Yes normal to inspection Right upper extremity: normal to inspection Left upper extremity: normal to inspection Right lower extremity: normal to inspection Left lower extremity: normal to inspection Course Reevaluation(s) Reevaluation #1: Strep, COVID, RSV, flu negative. Chest x-ray was reviewed and negative. Symptoms consistent with viral URI. Discharge with Tessalon and Zofran. Patient given Zofran due to chronic nausea secondary to irritable bowel syndrome. She is not nauseous now, abdomen is soft and nontender. Discussed return precautions patient understands. Patient stable discharge. Time: 14:15 Medical Decision Making Medical Decision Making [facility] Narrative: 23-year-old female presenting to the emergency department with complaints of cough and sore throat. She has a history of asthma and states that she has been using her inhaler more often. Denies any fevers, endorsing chills. On examination, mildly hypertensive at 144/86, patient oxygen saturation 98% on room air. Lungs clear to auscultation bilaterally without any wheezes, rales or rhonchi. Will obtain viral swabs. Differential diagnoses include influenza, RSV, COVID, upper respiratory infection, viral syndrome. Differential Diagnosis Differential Diagnoses: The differential diagnosis associated with the presentation includes COVID, flu, RSV, pneumonia, bronchitis, viral URI Admission/Observation Consideration of admission/observation: Escalation of care including admission/observation considered Lab Data [facility] Lab Attestation statement: I reviewed the patient's lab results. Negative Labs: Lab Results 07/22/23 07/22/23 Range/Units 10:46 12:47 Influenza Type A (PCR) NEGATIVE (Negative) Influenza Type B (PCR) NEGATIVE (Negative) RSV RNA Qual (PCR) NEGATIVE (Negative) SARS-CoV-2 RNA (RT-PCR) NEGATIVE (Negative) S. pyogenes GrpA BRIAN Negative (Negative) Radiology Impression Discussion of test interpretation with radiology: I have reviewed the radiologist's reading. Radiologist Impression: EXAMINATION: XR CHEST CLINICAL INFORMATION: Shortness of breath. Cough. COMPARISON: Multiple priors with the last chest x-ray of 02/23/2023 TECHNIQUE: 2 views of the chest were obtained. FINDINGS: No significant abnormality is noted involving the heart, lungs, mediastinum, bony thorax or soft tissues. XR/XR chest 2V IMPRESSION: No radiographic evidence of pneumonia or pulmonary edema. No acute pulmonary process. Dictated By: Anna Hayes MD Discharge Plan Discharge Clinical Impression: Viral URI, Cough Patient Disposition: Home, Self-Care Instructions: Upper Respiratory Infection (ED), Acute Cough (ED) Additional Instructions: You tested negative for COVID, RSV, flu and strep today. Her chest x-ray does not show a pneumonia. Your symptoms are likely due to a virus, this will get better on its own without any antibiotics. Please drink plenty of fluids get plenty of rest. Take prescribed medication as directed. Hot tea with honey, soups, saltwater gargles, throat lozenges can also help with your symptoms. If any new or worsening symptoms occur including but not limited to chest pain, shortness of breath, please return for re-evaluation. Follow-up with your primary care physician. Prescriptions: New benzonatate 200 mg capsule 200 mg PO TID PRN (Reason: cough) 7 Days Qty: 14 0RF ondansetron HCl 4 mg tablet 4 mg PO Q6-8H PRN (Reason: nausea and vomiting) Qty: 10 0RF No Action acetaminophen [Tylenol Extra Strength] 500 mg tablet 500 mg PO Q6H PRN (Reason: pain or fever) Qty: 20 0RF lidocaine [Lidoderm] 5 % adhesive patch,medicated 1 patch topical DAILY MDD remove after 12 hours PRN (Reason: pain) Qty: 30 0RF Rx Instructions: leave on most painful area for up to 12 hrs sumatriptan succinate [Imitrex] 50 mg tablet See Rx Instructions .ROUTE .COMPLEX Qty: 10 0RF Rx Instructions: take 1 tab at onset of headache; if no relief may repeat 1 tab after at least 2 hrs; max = 2 tabs/24 hr vitwsinrty-tvotfmwdjcvoq-znqp [Fioricet] 50-300-40 mg capsule 1 cap PO Q6H PRN (Reason: pain) Qty: 20 0RF ibuprofen 600 mg tablet 600 mg PO Q6H PRN (Reason: pain) Qty: 20 0RF ondansetron 4 mg tablet,disintegrating 4 mg PO Q8H 3 Days Qty: 9 0RF albuterol sulfate [ProAir HFA] 90 mcg/actuation HFA aerosol inhaler 2 puff inhalation QID PRN (Reason: shortness of breath or wheezing) Qty: 8.5 0RF ketorolac 10 mg tablet 10 mg PO Q8H PRN (Reason: pain) Qty: 20 0RF cefuroxime axetil 250 mg tablet 250 mg PO BID 7 Days Qty: 14 0RF ketorolac 10 mg tablet 10 mg PO Q8H PRN (Reason: pain) Qty: 14 0RF cyclobenzaprine 10 mg tablet 10 mg PO Q8H PRN (Reason: Muscle spasm) Qty: 14 0RF cyclobenzaprine 10 mg tablet 5 mg PO TID PRN (Reason: back pain) 7 Days Qty: 21 0RF nitrofurantoin monohyd/m-cryst [Macrobid] 100 mg capsule 100 mg PO Q12H 7 Days Qty: 14 0RF Rx Instructions: must administer with a meal/food phenazopyridine 100 mg tablet 100 mg PO TID Qty: 6 0RF metronidazole 500 mg tablet 500 mg PO Q8H 7 Days Qty: 21 0RF Stand Alone Forms: Work/School Release Interventions: ED Discharge Assessment Last Done: 07/22/23 13:55 Discharge Date/Time: 07/22/23 13:59
[2023-07-22 13:05] LABS: IDNOW Serial# 08D9AD1C; Strep A Nucleic Acid Negative (Negative)
[2023-07-22 13:59] VITALS: BP 118/78; PULSE 78; RESP 16; O2SAT 98
== END 2023-07-22 13:59 | disposition home or self-care (01) ==
PROVIDERS: Physician Assistant Medical; Emergency Provider Student in an Organized Health Care Education/Training Program; PCP Internal Medicine
DX: J06.9 Acute upper respiratory infection, unspecified (principal); R05.9 Cough, unspecified; Z20.822 Contact with and (suspected) exposure to COVID-19; Z20.828 Contact with and (suspected) exposure to other viral communicable diseases
CPT/HCPCS: 0241U; 71046; 87651; 99283

== ENCOUNTER 2023-08-18 08:24 | Emergency (ER) | payer OTHER, SELFPAY ==
[2023-08-18 08:50] VITALS: BP 145/96; PULSE 100; RESP 18; TEMP 36.6; O2SAT 97; BMI 46.3
[2023-08-18] MEDS: diphenhydrAMINE HCL 50 MG/ML VIAL 25 MG IVPUSH (09:02)
[2023-08-18] MEDS: ondansetron HCL 4 MG/2 ML VIAL IVPUSH (09:02)
[2023-08-18] MEDS: 0.9 % Sodium Chloride 1,000 ML 999 ML IV (09:03)
--- NOTE | 2023-08-18 09:06 | ED.HA ---
HPI - Headache General Chief Complaint: Headache Stated Complaint: migraine Time Seen by Provider: 08/18/23 08:48 Source: patient Mode of arrival: ambulatory Limitations: no limitations History of Present Illness HPI Narrative: a 23-year-old female history of migraine headache came in with migraine headache started at 02:00 last night while patient was on her phone, patient stated that her headache today is similar to her typical presentation of migraine, no fever, no chills , no sick contacts. Related Data Previous Rx's Medication Instructions Recorded acetaminophen 500 mg tablet 500 mg PO Q6H PRN pain or fever 01/04/21 (Tylenol Extra Strength) #20 tabs lidocaine 5 % topical patch 1 patch topical DAILY PRN pain #30 01/04/21 (Lidoderm) ea subdiwwudn-wdjwjlpicxgax-xaxqfhng 1 cap PO Q6H PRN pain #20 caps 03/20/21 50 mg-300 mg-40 mg capsule (Fioricet) sumatriptan succinate 50 mg tablet See Rx Instructions PO .COMPLEX 03/20/21 (Imitrex) #10 tabs ibuprofen 600 mg tablet 600 mg PO Q6H PRN pain #20 tabs 12/14/21 cyclobenzaprine 10 mg tablet 5 mg (1/2 x 10 mg) PO TID PRN back 04/26/22 pain 7 days #21 tabs albuterol sulfate 90 mcg/actuation 2 puff inhalation QID PRN 05/06/22 aerosol inhaler (ProAir HFA) shortness of breath or wheezing #8.5 grams ketorolac 10 mg tablet 10 mg PO Q8H PRN pain #20 tabs 05/06/22 ondansetron 4 mg disintegrating 4 mg PO Q8H 3 days #9 tabs 05/06/22 tablet nitrofurantoin 100 mg PO Q12H 7 days #14 caps 06/15/22 monohydrate/macrocrystals 100 mg capsule (Macrobid) phenazopyridine 100 mg tablet 100 mg PO TID 6 doses #6 tabs 06/15/22 cefuroxime axetil 250 mg tablet 250 mg PO BID 7 days #14 tabs 06/25/22 cyclobenzaprine 10 mg tablet 10 mg PO Q8H PRN Muscle spasm #14 06/25/22 tabs ketorolac 10 mg tablet 10 mg PO Q8H PRN pain #14 tabs 06/25/22 metronidazole 500 mg tablet 500 mg PO Q8H 7 days #21 tabs 08/03/22 benzonatate 200 mg capsule 200 mg PO TID PRN cough 7 days #14 07/22/23 caps ondansetron HCl 4 mg tablet 4 mg PO Q6-8H PRN nausea and 07/22/23 vomiting #10 tabs Allergies Allergy/AdvReac Type Severity Reaction Status Date / Time nickel Allergy Hives Verified 07/22/23 10:11 propylene glycol Allergy Hives Verified 07/22/23 10:11 Review of Systems Review of Systems: all other systems are reviewed and are negative Constitutional: Reports as per HPI and Reports no additional constitutional complaints Eyes: Reports as per HPI and Reports no additional eye complaints Reports system reviewed and no additional complaints, except as documented Cardiovascular: Reports as per HPI and Reports no additional cardiovascular complaints Respiratory: Reports as per HPI and Reports no additional respiratory complaints Gastrointestinal: Reports as per HPI and Reports no additional gastrointestinal complaints Genitourinary: Reports no additional female genitourinary complaints Musculoskeletal: Reports no additional musculoskeletal complaints Skin/Breast: Reports system reviewed and no additional complaints, except as docu Psychiatric: Reports no additional psychiatric complaints Endocrine: Reports no additional endocrine complaints Hematologic/Lymphatic: Reports no additional hematologic/lymphatic complaints Allergic/Immunologic: Reports no additional allergic/immunologic complaints Reports system reviewed and no additional complaints, except as documented and Reports Abnormal speech present [facility] Past Medical History Medical History Sciatic leg pain Migraines Anxiety Scarlet fever Surgical History H/O adenoidectomy Hx of tonsillectomy Social History Social History Substance Use Type: Marijuana Advance Directives: No Advance Directives Information Provided: No Physical Exam Vital Signs: Vital Signs: Last Vital Signs Temp 98.3 F 08/18/23 10:36 Pulse 83 08/18/23 10:36 Resp 16 08/18/23 10:36 BP 130/83 08/18/23 10:36 Pulse Ox 98 08/18/23 10:36 O2 Del Method Room Air 08/18/23 10:36 BMI result Body Mass Index 46.3 Vital signs have been reviewed and appear to be correct. Blood pressure elevated. Heart rate normal. Respiratory rate normal. Temperature normal. Oxygen saturation normal. Appearance: Alert. Oriented X3. No acute distress. Head: Normal external exam. Normocephalic. Atraumatic. No Dowell signs noted. No raccoon eyes noted Eyes: PERRLA. EOMI. Conjunctiva and sclera normal. Eyelids normal. ENT: TM's Normal. Pharynx normal. Uvula midline. Moist mucous membranes. No trismus noted. No drooling noted. No muffled voice noted. Neck: Normal inspection. Neck supple. FROM. No adenopathy. Thyroid Normal. No meningeal signs. No neck mass noted. CVS: Normal heart rate and rhythm. Heart sound normal. No murmurs noted. Pulses normal throughout. Respiratory: No respiratory distress. Painless inspiration. Breath sounds normal. No wheezes/rales/rhonchi noted. Chest nontender. No accessory muscle usage noted or decreased air movement noted. Abdomen: Soft and nontender. Bowel sounds normal in all 4 quadrants. No distention noted. No organomegaly noted. No visible injury noted. Back: No CVA tenderness. Full range of motion noted. Skin: Skin warm and dry. Normal skin color. Normal skin turgor. No rashes/lesions/lacerations noted. Extremities: No lower extremity edema. Extremities exhibit normal range of motion. Extremities nontender. Neuro: Oriented X 3. Cranial nerve exam: II-XII are grossly intact No motor deficit. No sensory deficit. Reflexes normal. Course Course Course Narrative: patient feels better after IV fluids/ Zofran/ Benadryl. discharged to follow-up with PCP. Medications Administered Discontinued Medications Generic Name Dose Route Start Last Admin Trade Name Freq PRN Reason Stop Dose Admin Diphenhydramine HCl 25 mg 08/18/23 08:49 08/18/23 09:02 Diphenhydramine Hcl 50 Mg/Ml Vial IVPUSH 08/18/23 08:50 25 mg ONCE ONE Administration Sodium Chloride 1,000 mls @ 999 mls/hr 08/18/23 08:49 08/18/23 09:03 Ns IV 08/18/23 09:49 999 mls/hr .Q1H1M ONE Administration Ondansetron HCl 4 mg 08/18/23 08:49 08/18/23 09:02 Ondansetron Hcl 4 Mg/2 Ml Vial IVPUSH 08/18/23 08:50 4 mg ONCE ONE Administration Medical Decision Making Differential Diagnosis Differential Diagnoses: The differential diagnosis associated with the presentation includes ( migraine, dehydration, sinusitis, upper respiratory infection.) Discharge Plan Discharge Clinical Impression: Migraine Qualifiers: Migraine type: unspecified Status migrainosus presence: without status migrainosus Intractability: not intractable Qualified Code(s): G43.909 - Migraine, unspecified, not intractable, without status migrainosus Patient Disposition: Home, Self-Care Instructions: Migraine Headache (ED) Prescriptions: No Action acetaminophen [Tylenol Extra Strength] 500 mg tablet 500 mg PO Q6H PRN (Reason: pain or fever) Qty: 20 0RF lidocaine [Lidoderm] 5 % adhesive patch,medicated 1 patch topical DAILY MDD remove after 12 hours PRN (Reason: pain) Qty: 30 0RF Rx Instructions: leave on most painful area for up to 12 hrs sumatriptan succinate [Imitrex] 50 mg tablet See Rx Instructions .ROUTE .COMPLEX Qty: 10 0RF Rx Instructions: take 1 tab at onset of headache; if no relief may repeat 1 tab after at least 2 hrs; max = 2 tabs/24 hr dopsrcaiwz-cdjeplcfsnion-runu [Fioricet] 50-300-40 mg capsule 1 cap PO Q6H PRN (Reason: pain) Qty: 20 0RF ibuprofen 600 mg tablet 600 mg PO Q6H PRN (Reason: pain) Qty: 20 0RF ondansetron 4 mg tablet,disintegrating 4 mg PO Q8H 3 Days Qty: 9 0RF albuterol sulfate [ProAir HFA] 90 mcg/actuation HFA aerosol inhaler 2 puff inhalation QID PRN (Reason: shortness of breath or wheezing) Qty: 8.5 0RF ketorolac 10 mg tablet 10 mg PO Q8H PRN (Reason: pain) Qty: 20 0RF cefuroxime axetil 250 mg tablet 250 mg PO BID 7 Days Qty: 14 0RF ketorolac 10 mg tablet 10 mg PO Q8H PRN (Reason: pain) Qty: 14 0RF cyclobenzaprine 10 mg tablet 10 mg PO Q8H PRN (Reason: Muscle spasm) Qty: 14 0RF cyclobenzaprine 10 mg tablet 5 mg PO TID PRN (Reason: back pain) 7 Days Qty: 21 0RF nitrofurantoin monohyd/m-cryst [Macrobid] 100 mg capsule 100 mg PO Q12H 7 Days Qty: 14 0RF Rx Instructions: must administer with a meal/food phenazopyridine 100 mg tablet 100 mg PO TID Qty: 6 0RF metronidazole 500 mg tablet 500 mg PO Q8H 7 Days Qty: 21 0RF benzonatate 200 mg capsule 200 mg PO TID PRN (Reason: cough) 7 Days Qty: 14 0RF ondansetron HCl 4 mg tablet 4 mg PO Q6-8H PRN (Reason: nausea and vomiting) Qty: 10 0RF Referrals: Kelly Knight MD [Primary Care Provider] - Stand Alone Forms: Work/School Release
[2023-08-18 10:36] VITALS: BP 130/83; PULSE 83; RESP 16; TEMP 36.8; O2SAT 98
== END 2023-08-18 10:50 | disposition home or self-care (01) ==
PROVIDERS: Emergency Provider Emergency Medicine; PCP Internal Medicine
DX: G43.909 Migraine, unspecified, not intractable, without status migrainosus (principal)
CPT/HCPCS: 96361; 96374; 96375; 99283; 99284; J1200; J2405

== ENCOUNTER 2023-10-14 14:21 | Emergency (ER) | payer OTHER, SELFPAY ==
--- NOTE | 2023-10-14 14:38 | ED.HA ---
HPI - Headache General Chief Complaint: Headache Stated Complaint: migraine Time Seen by Provider: 10/14/23 15:49 Source: patient Mode of arrival: ambulatory Limitations: no limitations History of Present Illness HPI Narrative: Patient is a 23-year-old female presenting to the emergency department complaint migraine for the past 3 days with associated nausea and photophobia. 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 States that since she has transitioned to a PCP as an adult, her new PCP is unwilling to continue prescribing Fioricet for her. Also concerned whether she is possibly . Took Tylenol at home with little relief. Denies headache worse at onset or worst headache of life. Denies any blurred vision, double vision or other visual changes. Denies any dizziness, lightheadedness, syncope. Denies any dysuria, frequency, other urinary symptoms. Denies back or flank pain. MD elicited complaint: migraine Pertinent past history: migraines Onset (ago): day(s) Onset description: gradually Location: generalized Severity: severe Quality & Timing: aching and similar to previous headaches Exacerbating factors: none Relieving factors: nothing Context: occurred at rest Associated symptoms: nausea and photophobia Treatments prior to arrival: acetaminophen Related Data Previous Rx's Medication Instructions Recorded acetaminophen 500 mg tablet 500 mg PO Q6H PRN pain or fever 01/04/21 (Tylenol Extra Strength) #20 tabs lidocaine 5 % topical patch 1 patch topical DAILY PRN pain #30 01/04/21 (Lidoderm) ea xfnntuhzde-mpxszkislnfhr-aeamfikb 1 cap PO Q6H PRN pain #20 caps 03/20/21 50 mg-300 mg-40 mg capsule (Fioricet) sumatriptan succinate 50 mg tablet See Rx Instructions PO .COMPLEX 03/20/21 (Imitrex) #10 tabs ibuprofen 600 mg tablet 600 mg PO Q6H PRN pain #20 tabs 12/14/21 cyclobenzaprine 10 mg tablet 5 mg (1/2 x 10 mg) PO TID PRN back 04/26/22 pain 7 days #21 tabs albuterol sulfate 90 mcg/actuation 2 puff inhalation QID PRN 05/06/22 aerosol inhaler (ProAir HFA) shortness of breath or wheezing #8.5 grams ketorolac 10 mg tablet 10 mg PO Q8H PRN pain #20 tabs 05/06/22 ondansetron 4 mg disintegrating 4 mg PO Q8H 3 days #9 tabs 05/06/22 tablet nitrofurantoin 100 mg PO Q12H 7 days #14 caps 06/15/22 monohydrate/macrocrystals 100 mg capsule (Macrobid) phenazopyridine 100 mg tablet 100 mg PO TID 6 doses #6 tabs 06/15/22 cefuroxime axetil 250 mg tablet 250 mg PO BID 7 days #14 tabs 06/25/22 cyclobenzaprine 10 mg tablet 10 mg PO Q8H PRN Muscle spasm #14 06/25/22 tabs ketorolac 10 mg tablet 10 mg PO Q8H PRN pain #14 tabs 06/25/22 metronidazole 500 mg tablet 500 mg PO Q8H 7 days #21 tabs 08/03/22 benzonatate 200 mg capsule 200 mg PO TID PRN cough 7 days #14 07/22/23 caps ondansetron HCl 4 mg tablet 4 mg PO Q6-8H PRN nausea and 07/22/23 vomiting #10 tabs lvocddgljq-fdqvmfxbvujgo-izotlynv 1 cap PO Q6H PRN pain #10 caps 10/14/23 50 mg-300 mg-40 mg capsule Allergies Allergy/AdvReac Type Severity Reaction Status Date / Time nickel Allergy Hives Verified 10/14/23 14:41 propylene glycol Allergy Hives Verified 10/14/23 14:41 Review of Systems Review of Systems: As per HPI. Yes all other systems are reviewed and are negative Constitutional: Constitutional: Reports as per HPI [facility] Past Medical History Medical History Sciatic leg pain Migraines Anxiety Scarlet fever Surgical History H/O adenoidectomy Hx of tonsillectomy Social History Social History Substance Use Type: Marijuana Advance Directives: No Advance Directives Information Provided: No Physical Exam Vital Signs: Vital Signs: Last Vital Signs Temp 97.8 F 10/14/23 14:39 Pulse 89 10/14/23 14:39 Resp 16 10/14/23 14:39 BP 133/86 10/14/23 14:39 Pulse Ox 94 10/14/23 14:39 O2 Del Method Room Air 10/14/23 14:39 BMI result Body Mass Index 48.4 Vital signs have been reviewed and appear to be correct. Blood pressure normal. Heart rate normal. Respiratory rate normal. Temperature normal. Oxygen saturation normal. Const: General: cooperative, healthy appearing and no acute distress Orientation/consciousness: oriented to person, oriented to place, oriented to time and patient oriented x3 Limitations: no limitations HEENT: Head: Yes normocephalic and Yes atraumatic Ears: external ears normal General nose exam: Normal external nose present Face and sinus: Yes face symmetric Mouth: oropharynx normal and moist mucous membranes Throat: Yes uvula midline Eyes: Pupils: Equal, round and reactive pupils present Neck: Neck: Yes normal visual inspection and Yes supple Resp: Effort & Inspection: normal respiratory effort and able to speak in complete sentences Auscultation: clear to auscultation bilaterally Cardio: Rate: regular rate Rhythm: regular rhythm Heart sounds: S1 normal heart sound present and S2 normal heart sound present GI: Palpation (GI): Soft to palpation and nontender Auscultation: normoactive bowel sounds : General: Yes no CVA tenderness Back/Spine/Pelvis: Back: no CVA tenderness Skin: General skin exam: elasticity normal and turgor normal Neuro: General: oriented to person, oriented to place, oriented to time, patient oriented x3, moves all extremities, no focal motor deficits and CN's II-XI intact bilaterally Cranial nerves: Yes Equal, round and reactive pupils present Cognition (Neuro): normal cognition Extrem: General: Yes full ROM, Yes no pedal edema and Yes no calf tenderness Psych: Mental Status: mental status grossly normal Affect: normal affect Thought process: Normal thought process present Course Course Course Narrative: This is a rapid medical exam. Deferred additional HPI, ROS, PE to primary provider. 23 yo female with history of migraines here with complaints of waking with migraine. Took tylenol with no relief. Ran out of her fiorcet. Offered fiocet in triage but concerned for so we will check a test. VSS Medications Administered Discontinued Medications Generic Name Dose Route Start Last Admin Trade Name Freq PRN Reason Stop Dose Admin Acetaminophen/Butalbital/Caffeine 1 tab 10/14/23 17:07 10/14/23 17:24 Butalb/Acetamin/Caff 50/325/40 Tablet PO 10/14/23 17:08 1 tab ONCE ONE Administration Medical Decision Making Medical Decision Making [facility] Narrative: Patient is a 23-year-old female presenting to the emergency department complaint migraine for the past 3 days with associated nausea and photophobia. On exam patient is awake, A+Ox3, VS WNL, afebrile, normal neurological exam without focal deficits, physical exam findings as above. Given reported symptoms and physical exam findings, initial differential includes migraine, tension headache. No red flag findings concerning for SAH/ICH, temporal or giant cell arteritis, pseudotumor, preeclampsia, meningitis. Urine negative. Urinalysis notable for 2+ leukocytes, 21-50 wbc's, however, 6-10 epithelial cells also noted. Given that patient denies any urinary symptoms, likely contamination and will defer treatment for UTI at this time which patient is agreeable with. Patient offered treatment with IV fluids and IV medications for migraine versus Fioricet. Patient stating she prefers treatment with Fioricet at this time. EXPERIMENTAL WORKER reviewed. Will medicate with Fioricet here as patient states she has a ride home. Will send prescription for Fioricet but discussed with patient that she may need to seek a new PCP if her current PCP is unwilling to prescribe this for her and it works well for treating her migraine. Differential Diagnosis Differential Diagnoses: The differential diagnosis associated with the presentation includes As per [facility]. Lab Data [facility] Lab Attestation statement: I reviewed the patient's lab results. As per [facility]. Labs: Lab Results 10/14/23 Range/Units 16:07 Urine Color Yellow Urine Appearance Cloudy Urine pH 6.0 (5.0-9.0) Ur Specific [place] 1.020 (1.005-1.025) Urine Protein Negative (Neg-Trace) mg/dL Urine Glucose (UA) Negative (Negative) mg/dL Urine Ketones Negative (Negative) mg/dL Urine Blood Large (3+) H (Negative) Urine Nitrite Negative (Negative) Ur Leukocyte Esterase Moderate (2+) H (Negative) Urine RBC 6-10 H (0-2) /HPF Urine WBC 21-50 H (0-5) /HPF Ur Squamous Epith Cells 6-10 (0-2) /HPF Urine Bacteria Trace (None Seen) Hyaline Casts 0-2 (0-2) /LPF Urine Test NEGATIVE (NEGATIVE) External Record Review External record reviewed: Inpatient record, Office record and Outpatient record Prescription Management I considered prescription management with: Pain Medication Chronic Conditions Patient?s care impacted by: Other (Migraines) Discharge Plan Discharge Clinical Impression: Migraines Patient Disposition: Home, Self-Care Instructions: Migraine Headache (ED) Additional Instructions: You were treated for a migraine headache in the emergency department today. You are being sent a prescription for Fioricet. You should follow-up with your primary care provider this week. Return to the emergency department if you develop worsening or uncontrolled pain, vision changes, recurrent vomiting, difficulty with normal activities, abnormal behavior, difficulty walking, numbness, weakness, or any other concerning symptoms. Prescriptions: New ywssvwjmqq-mvqpyhlizttvo-nanm 50-300-40 mg capsule 1 cap PO Q6H PRN (Reason: pain) Qty: 10 0RF No Action acetaminophen [Tylenol Extra Strength] 500 mg tablet 500 mg PO Q6H PRN (Reason: pain or fever) Qty: 20 0RF lidocaine [Lidoderm] 5 % adhesive patch,medicated 1 patch topical DAILY MDD remove after 12 hours PRN (Reason: pain) Qty: 30 0RF Rx Instructions: leave on most painful area for up to 12 hrs sumatriptan succinate [Imitrex] 50 mg tablet See Rx Instructions .ROUTE .COMPLEX Qty: 10 0RF Rx Instructions: take 1 tab at onset of headache; if no relief may repeat 1 tab after at least 2 hrs; max = 2 tabs/24 hr hznkrbknhn-dfwcfxgbouhbk-akci [Fioricet] 50-300-40 mg capsule 1 cap PO Q6H PRN (Reason: pain) Qty: 20 0RF ibuprofen 600 mg tablet 600 mg PO Q6H PRN (Reason: pain) Qty: 20 0RF ondansetron 4 mg tablet,disintegrating 4 mg PO Q8H 3 Days Qty: 9 0RF albuterol sulfate [ProAir HFA] 90 mcg/actuation HFA aerosol inhaler 2 puff inhalation QID PRN (Reason: shortness of breath or wheezing) Qty: 8.5 0RF ketorolac 10 mg tablet 10 mg PO Q8H PRN (Reason: pain) Qty: 20 0RF cefuroxime axetil 250 mg tablet 250 mg PO BID 7 Days Qty: 14 0RF ketorolac 10 mg tablet 10 mg PO Q8H PRN (Reason: pain) Qty: 14 0RF cyclobenzaprine 10 mg tablet 10 mg PO Q8H PRN (Reason: Muscle spasm) Qty: 14 0RF cyclobenzaprine 10 mg tablet 5 mg PO TID PRN (Reason: back pain) 7 Days Qty: 21 0RF nitrofurantoin monohyd/m-cryst [Macrobid] 100 mg capsule 100 mg PO Q12H 7 Days Qty: 14 0RF Rx Instructions: must administer with a meal/food phenazopyridine 100 mg tablet 100 mg PO TID Qty: 6 0RF metronidazole 500 mg tablet 500 mg PO Q8H 7 Days Qty: 21 0RF benzonatate 200 mg capsule 200 mg PO TID PRN (Reason: cough) 7 Days Qty: 14 0RF ondansetron HCl 4 mg tablet 4 mg PO Q6-8H PRN (Reason: nausea and vomiting) Qty: 10 0RF
[2023-10-14 14:39] VITALS: BP 133/86; PULSE 89; RESP 16; TEMP 36.6; O2SAT 94; BMI 48.4
[2023-10-14 16:13] LABS: Appearance Urine Cloudy; Color Urine Yellow; Glucose Urine UA Negative (Negative); Leukocyte Esterase Urine Moderate (2+) (Negative); Nitrite Urine Negative (Negative); UMIC TRIGGER UACC YES; Urine Blood Large (3+) (Negative); Urine Ketones Negative (Negative); Urine Protein Negative (Neg-Trace)
[2023-10-14 16:15] LABS: UPreg QC Valid YES; Urine Pregnancy NEGATIVE (NEGATIVE)
[2023-10-14 16:16] LABS: Bacteria Urine Trace (None Seen); Hyaline Casts Urine 0-2 /LPF (0-2); UACC Culture Trigger YES; WBC Urine 21-50 /HPF (0-5)
[2023-10-14] MEDS: Butalb/Acetamin/Caff 50/325/40 TABLET 1 TAB PO (17:24)
== END 2023-10-14 18:32 | disposition home or self-care (01) ==
PROVIDERS: Nurse Practitioner Family; Emergency Provider Emergency Medicine; PCP Internal Medicine
DX: G43.909 Migraine, unspecified, not intractable, without status migrainosus (principal); R11.0 Nausea
CPT/HCPCS: 81001; 81025; 87086; 99283

== ENCOUNTER 2024-01-02 23:19 | Emergency (ER) | payer OTHER, SELFPAY ==
[2024-01-02 23:23] VITALS: BP 132/90; PULSE 88; RESP 16; TEMP 36.9; O2SAT 98; BMI 46.3
--- NOTE | 2024-01-02 23:46 | ED.GENADULT ---
HPI - General Adult General Chief complaint: General Medical Stated complaint: ?Yeast infection Time Seen by Provider: 01/02/24 23:45 Source: patient Mode of arrival: ambulatory Limitations: no limitations History of Present Illness HPI narrative: 23-year-old female with a past medical history of anxiety presents to the emergency department with concerns for a vaginal yeast infection. She reports she has had vaginal itching and clear vaginal discharge starting this morning. She reports she was evaluated in urgent care clinic earlier today and diagnosed with a yeast infection and prescribed fluconazole. 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 She also reports that she was recently diagnosed with gonorrhea and chlamydia and treated with oral antibiotics. Pertinent positives and negatives discussed in HPI Related Data Previous Rx's Medication Instructions Recorded acetaminophen 500 mg tablet 500 mg PO Q6H PRN pain or fever 01/04/21 (Tylenol Extra Strength) #20 tabs lidocaine 5 % topical patch 1 patch topical DAILY PRN pain #30 01/04/21 (Lidoderm) ea xbllhptreg-ifgpxzpdiszit-hckmutci 1 cap PO Q6H PRN pain #20 caps 03/20/21 50 mg-300 mg-40 mg capsule (Fioricet) sumatriptan succinate 50 mg tablet See Rx Instructions PO .COMPLEX 03/20/21 (Imitrex) #10 tabs ibuprofen 600 mg tablet 600 mg PO Q6H PRN pain #20 tabs 12/14/21 cyclobenzaprine 10 mg tablet 5 mg (1/2 x 10 mg) PO TID PRN back 04/26/22 pain 7 days #21 tabs albuterol sulfate 90 mcg/actuation 2 puff inhalation QID PRN 05/06/22 aerosol inhaler (ProAir HFA) shortness of breath or wheezing #8.5 grams ketorolac 10 mg tablet 10 mg PO Q8H PRN pain #20 tabs 05/06/22 ondansetron 4 mg disintegrating 4 mg PO Q8H 3 days #9 tabs 05/06/22 tablet nitrofurantoin 100 mg PO Q12H 7 days #14 caps 06/15/22 monohydrate/macrocrystals 100 mg capsule (Macrobid) phenazopyridine 100 mg tablet 100 mg PO TID 6 doses #6 tabs 06/15/22 cefuroxime axetil 250 mg tablet 250 mg PO BID 7 days #14 tabs 06/25/22 cyclobenzaprine 10 mg tablet 10 mg PO Q8H PRN Muscle spasm #14 06/25/22 tabs ketorolac 10 mg tablet 10 mg PO Q8H PRN pain #14 tabs 06/25/22 metronidazole 500 mg tablet 500 mg PO Q8H 7 days #21 tabs 08/03/22 benzonatate 200 mg capsule 200 mg PO TID PRN cough 7 days #14 07/22/23 caps ondansetron HCl 4 mg tablet 4 mg PO Q6-8H PRN nausea and 07/22/23 vomiting #10 tabs puftvpspnr-drkxymtqartto-paqpscxx 1 cap PO Q6H PRN pain #10 caps 10/14/23 50 mg-300 mg-40 mg capsule fluconazole 150 mg tablet 150 mg PO DAILY #1 tab 01/02/24 Allergies Allergy/AdvReac Type Severity Reaction Status Date / Time nickel Allergy Hives Verified 01/02/24 23:23 propylene glycol Allergy Hives Verified 01/02/24 23:23 Review of Systems Review of Systems: Yes all other systems are reviewed and are negative PMFSH Past Medical History Medical History Sciatic leg pain Migraines Anxiety Scarlet fever Surgical History H/O adenoidectomy Hx of tonsillectomy Social History Social History Substance Use Type: Marijuana Advance Directives: No Advance Directives Information Provided: Yes Physical Exam ED Vital Signs: Vital Signs - 24 hr 01/02/24 23:23 Temperature 98.4 F Pulse Rate 88 Respiratory Rate 16 Blood Pressure 132/90 H Pulse Oximetry 98 Oxygen Delivery Method Room Air BMI result Body Mass Index 46.3 Nursing notes and vital signs reviewed. GENERAL APPEARANCE: A&0 x 4, generally well appearing, no acute distress HENMT: Normal to inspection, atraumatic, face symmetrical. Normal external ears, nose, and oropharynx clear. EYE: PERRLA, EOM intact, structures appear normal NECK: Supple without stiffness or restricted ROM. HEART: Normal rate and regular rhythm, normal S1/S2, no M/R/G LUNGS: LS CTA, moving air well. Able to speak in complete sentences. No crackles, wheezes, or rhonchi auscultated BACK: No CVAT, no obvious deformity EXTREMITIES: Moving all extremities without difficulty. Normal capillary refill. NEUROLOGICAL: Alert and oriented, moving all 4 extremities with equal strength. CN not formally tested but appearing grossly intact. Observed to ambulate with normal gait. Cognition normal SKIN: Warm and dry without any lesions, rash, or visible sores Medical Decision Making Medical Decision Making MDM Narrative: Old records reviewed for previous imaging, lab studies, ECGs, and notes. Patient was assessed the emergency department with no acute distress or toxicity noted. Per Urgent Care records pt had a negative UA and HCG earlier today. Fluconazole given here in the emergency department and one additional pill sent to preferred pharmacy. 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 Patient is safe for discharge at this time with plan for [id number] Tylenol and/or NSAID such as ibuprofen or naproxen for fever/discomfort with dosing as per packaging. HPI, PE, diagnostics, and plan discussed with patient and family with no unanswered questions at this time. Strict return precautions given to return to the emergency department with new, worsening, or concerning emergent symptoms. Recommended to follow-up with there primary care provider in 24-48 hours for further treatment and management. Differential Diagnosis Differential Diagnoses: The differential diagnosis associated with the presentation includes but not limited to sti, uti, noel, vaginal trauma, menses Discharge Plan Discharge Clinical Impression: Vaginal yeast infection Patient Disposition: Home, Self-Care Instructions: Yeast Infection (ED) Prescriptions: New fluconazole 150 mg tablet 150 mg PO DAILY Qty: 1 0RF Rx Instructions: May take in 3-4 days if hospital dose does not resolve symptoms No Action acetaminophen [Tylenol Extra Strength] 500 mg tablet 500 mg PO Q6H PRN (Reason: pain or fever) Qty: 20 0RF lidocaine [Lidoderm] 5 % adhesive patch,medicated 1 patch topical DAILY MDD remove after 12 hours PRN (Reason: pain) Qty: 30 0RF Rx Instructions: leave on most painful area for up to 12 hrs sumatriptan succinate [Imitrex] 50 mg tablet See Rx Instructions .ROUTE .COMPLEX Qty: 10 0RF Rx Instructions: take 1 tab at onset of headache; if no relief may repeat 1 tab after at least 2 hrs; max = 2 tabs/24 hr qfilubpivq-xnlurbodauskc-hghk [Fioricet] 50-300-40 mg capsule 1 cap PO Q6H PRN (Reason: pain) Qty: 20 0RF ibuprofen 600 mg tablet 600 mg PO Q6H PRN (Reason: pain) Qty: 20 0RF ondansetron 4 mg tablet,disintegrating 4 mg PO Q8H 3 Days Qty: 9 0RF albuterol sulfate [ProAir HFA] 90 mcg/actuation HFA aerosol inhaler 2 puff inhalation QID PRN (Reason: shortness of breath or wheezing) Qty: 8.5 0RF ketorolac 10 mg tablet 10 mg PO Q8H PRN (Reason: pain) Qty: 20 0RF cefuroxime axetil 250 mg tablet 250 mg PO BID 7 Days Qty: 14 0RF ketorolac 10 mg tablet 10 mg PO Q8H PRN (Reason: pain) Qty: 14 0RF cyclobenzaprine 10 mg tablet 10 mg PO Q8H PRN (Reason: Muscle spasm) Qty: 14 0RF cyclobenzaprine 10 mg tablet 5 mg PO TID PRN (Reason: back pain) 7 Days Qty: 21 0RF nitrofurantoin monohyd/m-cryst [Macrobid] 100 mg capsule 100 mg PO Q12H 7 Days Qty: 14 0RF Rx Instructions: must administer with a meal/food phenazopyridine 100 mg tablet 100 mg PO TID Qty: 6 0RF metronidazole 500 mg tablet 500 mg PO Q8H 7 Days Qty: 21 0RF benzonatate 200 mg capsule 200 mg PO TID PRN (Reason: cough) 7 Days Qty: 14 0RF ondansetron HCl 4 mg tablet 4 mg PO Q6-8H PRN (Reason: nausea and vomiting) Qty: 10 0RF rbtfqmikqy-sjwpwnfxizlcb-ogvv 50-300-40 mg capsule 1 cap PO Q6H PRN (Reason: pain) Qty: 10 0RF Referrals: Kelly Knight MD [Primary Care Provider] - Stand Alone Forms: Work/School Release
[2024-01-03] MEDS: Fluconazole 150 MG TABLET PO (00:11)
[2024-01-03 00:15] LABS: Glucose, Whole Blood 91 mg/dL (60-115)
== END 2024-01-03 00:23 | disposition home or self-care (01) ==
PROVIDERS: Emergency Provider Student in an Organized Health Care Education/Training Program; PCP Internal Medicine
DX: B37.31 Acute candidiasis of vulva and vagina (principal)
CPT/HCPCS: 82947; 99282; 99283

== ENCOUNTER 2024-04-11 17:14 | Emergency (ER) | payer OTHER, SELFPAY ==
--- NOTE | ~2024-04-11 | CT_ITS ---
EXAMINATION: CT ABDOMEN AND PELVIS WITH CONTRAST CLINICAL INFORMATION: Abdominal pain. Nausea and vomiting. COMPARISON: CT abdomen pelvis dated 08/01/2022. TECHNIQUE: Multidetector volumetric images were obtained from the superior aspect of the liver through the pubic symphysis following administration 85 mL of Omnipaque 350 intravenous contrast. Sagittal and coronal reformatted images were obtained on the technologist's workstation. Oral contrast: No This CT examination was performed using dose optimization techniques as appropriate, variously including the following: *Automated exposure control *Adjustment of mA and/or kV according to patient size (this includes techniques or standardized protocols for targeted exams where dose is matched to indication/reason for exam; i.e. extremities or head) *Use of iterative reconstruction technique DLP: 11/05/2007 mGy-cm FINDINGS: LUNG BASES: The visualized lung bases are unremarkable. LIVER, GALLBLADDER, AND BILIARY TREE: The liver is enlarged and steatotic. No focal hepatic lesion or biliary ductal dilatation is present. The gallbladder is unremarkable with no evidence of radiopaque gallstones, gallbladder wall thickening, or obvious pericholecystic inflammatory changes. PANCREAS: Unremarkable. SPLEEN: Unremarkable. ADRENAL GLANDS: Unremarkable. KIDNEYS AND URETERS: There are 2, ill-defined, somewhat wedge-shaped areas of low-attenuation within the upper pole of the right kidney. The right kidney is normal in size and shape. No hydronephrosis, hydroureter, or calculi seen. No perinephric stranding. The left kidney is normal in appearance. BLADDER: Unremarkable. GASTROINTESTINAL TRACT: The small and large bowel are normal in caliber. There is no pericolonic inflammatory stranding or colonic wall thickening. The appendix is unremarkable. No free fluid within the abdomen or pelvis. ABDOMINAL WALL: No significant hernia is appreciated. LYMPH NODES: No lymphadenopathy. Shoddy retroperitoneal lymph nodes are again seen. VASCULAR: Unremarkable. PELVIC VISCERA: The uterus is normal in appearance there is a 2.7 x 2.8 left ovarian cyst. OSSEOUS STRUCTURES: There is a grade 1 retrolisthesis of L5 in relation to S1. CT/CT abdomen pelvis w IV con IMPRESSION: There are 2, ill-defined, somewhat wedge-shaped areas of low-attenuation within the upper pole of the right kidney. These areas of relative decreased enhancement extending to the periphery of the kidney. Acute pyelonephritis is suspected. The liver is enlarged and steatotic. Fleischner guidelines were followed. This critical result was discussed with ARTURO Perkins at 9:42 PM on 04/11/2024 and it was ascertained that the content and urgency of the report was understood at the time of direct communication.
[2024-04-11 18:08] VITALS: BP 128/69; PULSE 122; RESP 16; TEMP 37.9; O2SAT 96; BMI 47.6
--- NOTE | 2024-04-11 18:09 | ED_ITS ---
HPI - Abdominal Pain General Chief Complaint: Abdominal Pain Stated Complaint: nauseous w/ abd pain Time Seen by Provider: 04/11/24 20:38 Source: patient History of Present Illness HPI narrative: 24-year-old female who has a history of IBS, migraines, anxiety, presents for evaluation of sudden onset abdominal pain. Patient states at approximately 1:00 a.m. this morning she awoke with sharp pain and pressure to the right lower part of her abdomen. Patient states it has been constant since that time and radiates across her lower abdomen. She has had several episodes of nausea and vomiting. She denies any urinary symptoms. No vaginal discharge bleeding or spotting. She denies any sick contacts. She has been eating and drinking normally prior to this. Patient went to urgent care directed to the emergency department for further evaluation. The patient states that her pain related to IBS is different than current pain. She is currently sexually active with 1 male partner and denies any dyspareunia. She was last sexually active yesterday. No abdominal surgery. Related Data Previous Rx's ?Medication ?Instructions ?Recorded acetaminophen 500 mg tablet 500 mg PO Q6H PRN pain or fever 01/04/21 (Tylenol Extra Strength) #20 tabs lidocaine 5 % topical patch 1 patch topical DAILY PRN pain #30 01/04/21 (Lidoderm) ea wmhwpzwevp-irurwmfpafpje-agusmdck 1 cap PO Q6H PRN pain #20 caps 03/20/21 50 mg-300 mg-40 mg capsule (Fioricet) sumatriptan succinate 50 mg tablet See Rx Instructions PO .COMPLEX 03/20/21 (Imitrex) #10 tabs ibuprofen 600 mg tablet 600 mg PO Q6H PRN pain #20 tabs 12/14/21 cyclobenzaprine 10 mg tablet 5 mg (1/2 x 10 mg) PO TID PRN back 04/26/22 pain 7 days #21 tabs albuterol sulfate 90 mcg/actuation 2 puff inhalation QID PRN 05/06/22 aerosol inhaler (ProAir HFA) shortness of breath or wheezing #8.5 grams ketorolac 10 mg tablet 10 mg PO Q8H PRN pain #20 tabs 05/06/22 ondansetron 4 mg disintegrating 4 mg PO Q8H 3 days #9 tabs 05/06/22 tablet nitrofurantoin 100 mg PO Q12H 7 days #14 caps 06/15/22 monohydrate/macrocrystals 100 mg capsule (Macrobid) phenazopyridine 100 mg tablet 100 mg PO TID 6 doses #6 tabs 06/15/22 cefuroxime axetil 250 mg tablet 250 mg PO BID 7 days #14 tabs 06/25/22 cyclobenzaprine 10 mg tablet 10 mg PO Q8H PRN Muscle spasm #14 06/25/22 tabs ketorolac 10 mg tablet 10 mg PO Q8H PRN pain #14 tabs 06/25/22 metronidazole 500 mg tablet 500 mg PO Q8H 7 days #21 tabs 08/03/22 benzonatate 200 mg capsule 200 mg PO TID PRN cough 7 days #14 07/22/23 caps ondansetron HCl 4 mg tablet 4 mg PO Q6-8H PRN nausea and 07/22/23 vomiting #10 tabs iazxcekeip-gwgulxcaxdgkk-zxhkuust 1 cap PO Q6H PRN pain #10 caps 10/14/23 50 mg-300 mg-40 mg capsule fluconazole 150 mg tablet 150 mg PO DAILY #1 tab 01/02/24 ciprofloxacin HCl 500 mg tablet 500 mg PO Q12H 7 days #14 tabs 04/11/24 ibuprofen 600 mg tablet 600 mg PO Q6-8H PRN pain #20 tabs 04/11/24 ondansetron 4 mg disintegrating 4 mg PO Q8H PRN nausea and 04/11/24 tablet vomiting #12 tabs Allergies Allergy/AdvReac Type Severity Reaction Status Date / Time nickel Allergy Hives Verified 04/11/24 18:11 propylene glycol Allergy Hives Verified 04/11/24 18:11 Review of Systems Constitutional: Denies chills, Denies fever(s) and Denies headache(s) Denies headache(s), Denies nasal congestion, Denies nasal discharge, Denies neck pain and Denies sore throat Cardiovascular: Denies chest pain, Denies palpitations, Denies dyspnea, Denies dyspnea on exertion and Denies orthopnea Respiratory: Denies cough, Denies dyspnea and Denies dyspnea on exertion Gastrointestinal: Reports abdominal pain, Denies melena, Denies hematochezia, Denies diarrhea, Reports nausea and Reports vomiting Genitourinary: Denies dysuria, Denies flank pain, Denies urinary urgency, Denies vaginal discharge and Denies vaginal pruritus Musculoskeletal: Reports back pain, Denies muscle weakness, Denies neck pain and Denies numbness Skin/Breast: Denies rash Denies headache(s), Denies focal weakness and Denies numbness Psychiatric: Denies depression Endocrine: Denies palpitations PMFSH Past Medical History Medical History Sciatic leg pain Migraines Anxiety Scarlet fever Surgical History H/O adenoidectomy Hx of tonsillectomy Social History Social History Smoked in Last 30 Days: No Use of substances other than those prescribed or required for medical reasons: No Substance Use Type: Marijuana Advance Directives: No Advance Directives Information Provided: No Physical Exam ED Vital Signs: Vital Signs - 24 hr 04/11/24 18:08 04/11/24 19:48 04/11/24 20:00 Temperature 100.2 F 99.6 F 99.6 F Pulse Rate 122 H 130 H 108 H Respiratory Rate 16 24 H Blood Pressure 128/69 142/85 H 122/55 L Pulse Oximetry 96 94 96 Oxygen Delivery Method Room Air Room Air Room Air 04/11/24 22:00 04/11/24 23:01 04/11/24 23:51 Temperature 98.8 F 98.2 F Pulse Rate 103 H 99 65 Respiratory Rate 16 20 Blood Pressure 112/53 L 135/81 Pulse Oximetry 96 98 98 Oxygen Delivery Method Room Air Room Air Room Air BMI result Body Mass Index 47.6 Const General: cooperative, alert and awake Resp Auscultation: clear to auscultation bilaterally Cardio Rate: regular rate Rhythm: regular rhythm GI Other: Abdomen is soft. There is diffuse mild tenderness to the lower abdomen particularly in the suprapubic and right lower quadrant region. There is no peritoneal signs. No CVAT. Course Course Course Narrative: This is an RME performed by Donte Kang CNP: Additional HPI, ROS, PE not included below will be deferred to primary provider. Patient is a 24-year-old female who presents emergency department for evaluation. She reports that she had onset of right lower quadrant pain today that is now radiating to the left lower quadrant with nausea and vomiting. Denies diarrhea or constipation. Reports that she took 2 tests at home both of which were negative. At urgent care she received Zofran which improved her nausea somewhat, but she was advised to come to the emergency department for a CT scan, she does admit to a history of IBS. Also complaining of headache, bilateral ear pain, dizziness with head movement. Physical exam: ABD soft non tender, reports bilateral LQ TTP, no rebound tenderness, no rigidity, no guarding, appears uncomfortable, tachycardic. Bilateral CVAT Reevaluation(s) Reevaluation #1: Patient presented back to the triage room endorsing worsening nausea and an episode of vomiting in the waiting room. Requesting Zofran. Vital signs were obtained at this time, remains tachycardic in the 130s, mildly tachypneic, reviewed labs obtained thus far leukocytosis 17,300, urinalysis consistent with UTI. No lactic acidosis. Meeting SIRS criteria. 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 Time: 19:51 Reevaluation #2: 9:45 p.m. receive telephone call from radiologist. CT findings suggestive acute. Remainder of study is unremarkable including appendix. I have reviewed the CT findings with the patient. She tolerated IV ceftriaxone as well as IV fluids. Given that patient initially was tachycardic elevated white blood cell count and findings of pyelonephritis on CT, I have recommended that the patient be brought into the hospital for further evaluation and management. The patient is adamantly refusing this at this time. I have had an extensive discussion with the patient regarding risks and benefits including being discharged home, significantly worsening of her symptoms, including fever, pain, sepsis, or even . The patient accepts these risks. She is also adamant that she will return if symptoms do not improve. Patient states that hospitals give her a lot of anxiety and she feels more comfortable at home in her own bed and being with her cat. Patient reports that she has a support at home with family and her boyfriend. Patient is agreeable to remain to receive continued IV fluids and reassessment. Patient tolerated IV fluids. She reports feeling much better at this time. She continues to endorse discharged home. I feel that this is reasonable at this time as her vital signs have improved. In addition, the patient was able to tolerate liquids and food while in the emergency department. She has not had any nausea or vomiting. Patient received 1st dose of antibiotics. Reviewed all discharge instructions. No further questions at this time. Medical Decision Making Medical Decision Making [facility] Narrative: 24-year-old female with a history of migraines, IBS, anxiety, presents with lower abdominal pain, nausea and vomiting. Elevated white count of 17 along with UTI. Given the patient's symptoms, we will CT. It has been nearly [address] Concern for appendicitis or colitis. Patient's nausea has improved with Zofran. Continue IV. Patient received ceftriaxone already. Vital signs are improving. Trial of Toradol Differential Diagnosis Differential Diagnoses: The differential diagnosis associated with the presentation includes Sepsis Appendicitis UTI Colitis Ovarian cyst Pyelonephritis Admission/Observation Consideration of admission/observation: Escalation of care including admission/observation considered Consideration for admission with extensive discussion with the patient regarding admission Lab Data [facility] Lab Attestation statement: I reviewed the patient's lab results. 04/11/24 18:38 04/11/24 18:38 Labs: Lab Results 04/11/24 Range/Units 18:38 WBC 17.3 H (4.8-10.8) X10*3/uL RBC 5.10 (4.20-5.50) X10*6/uL Hgb 14.0 (12.0-16.0) g/dl Hct 42.1 (37.0-47.0) % MCV 82.5 (80.0-98.0) fL MCH 27.5 (27.0-33.0) pg MCHC 33.3 (31.0-35.0) g/dl RDW 13.8 (11.0-16.0) % Plt Count 318 (160-400) X10*3/uL MPV 10.4 (9.4-12.3) fL Immature Gran % (Auto) 0.6 H (0.0-0.4) % Neut % (Auto) 77.2 H (45-73) % Lymph % (Auto) 11.9 L (20-40) % Clarke % (Auto) 9.7 (2-11) % Eos % (Auto) 0.3 (0-4) % Baso % (Auto) 0.3 (0-2) % Lymph # (Auto) 2.1 (1.2-4.9) X10*3/uL Clarke # (Auto) 1.7 H (0.1-1.2) X10*3/uL Eos # (Auto) 0.1 (0.0-0.4) X10*3/uL Baso # (Auto) 0.1 (0.0-0.2) X10*3/uL Abs Immat Gran (auto) 0.11 H (0.00-0.03) X10*3/uL Absolute Neuts (auto) 13.4 H (2.0-8.3) x10*3/uL Absolute Nucleated RBC 0.000 (0.0-0.012) X10*3/uL Nucleated RBC % (auto) 0.0 (0.0-0.2) /100WBC Smear Tech's Comments VERIFIED ESR 30 H (0-20) MM/HR Sodium 136 (135-145) mmol/L Potassium 3.9 (3.3-5.1) mmol/L Chloride 102 (96-108) mmol/L Carbon Dioxide 22 (22-29) mmol/L Anion Gap 16 (12-20) BUN 6 L (9-16) mg/dL Creatinine 0.82 (0.5-1.4) mg/dL Estim Creat Clear Calc 140.1 Estimated GFR > 60 Random Glucose 102 (60-115) mg/dL Lactic Acid 1.1 (0.5-2.0) mmol/L Calcium 9.3 D (8.4-10.2) mg/dL Total Bilirubin 0.4 (0.0-1.0) mg/dL AST 13 (5-31) U/L ALT 15 (0-31) U/L Alkaline Phosphatase 66 (39-117) U/L C-Reactive Protein 8.76 H (< or = 0.50) mg/dL Total Protein 7.8 (6.5-8.0) g/dL Albumin 4.2 (3.5-5.0) g/dL Lipase 26 (8-78) U/L Urine Color Yellow Urine Appearance Cloudy Urine pH 6.0 (5.0-9.0) Ur Specific [place] 1.020 (1.005-1.025) Urine Protein Trace (Neg-Trace) mg/dL Urine Glucose (UA) Negative (Negative) mg/dL Urine Ketones Trace (Negative) mg/dL Urine Blood Negative (Negative) Urine Nitrite Positive H (Negative) Ur Leukocyte Esterase Small (1+) H (Negative) Urine RBC 0-2 (0-2) /HPF Urine WBC 11-20 H (0-5) /HPF Ur Squamous Epith Cells 11-20 (0-2) /HPF Urine Bacteria 4+ (None Seen) Hyaline Casts 0-2 (0-2) /LPF Urine Test NEGATIVE (NEGATIVE) Radiology Impression Discussion of test interpretation with radiology: I discussed test interpretation with the radiologist and I have reviewed the radiologist's reading. Radiologist Impression: [address] [address] [address] Scan Report Signed Patient: Christine Kwok MR#: [id number] : 2000 Acct:[id number] Age/Sex: 24 / F ADM Date: 04/11/24 Loc: .ED Attending Dr: Ordering Physician: Praveen Thompson Date of Service: 04/11/24 Procedure(s): CT abdomen pelvis w IV con Accession Number(s): [id number] cc: Kelly Knight MD; Praveen Thompson~ EXAMINATION: CT ABDOMEN AND PELVIS WITH CONTRAST CLINICAL INFORMATION: Abdominal pain. Nausea and vomiting. COMPARISON: CT abdomen pelvis dated 08/01/2022. TECHNIQUE: Multidetector volumetric images were obtained from the superior aspect of the liver through the pubic symphysis following administration 85 mL of Omnipaque 350 intravenous contrast. Sagittal and coronal reformatted images were obtained on the technologist's workstation. Oral contrast: No This CT examination was performed using dose optimization techniques as appropriate, variously including the following: *Automated exposure control *Adjustment of mA and/or kV according to patient size (this includes techniques or standardized protocols for targeted exams where dose is matched to indication/reason for exam; i.e. extremities or head) *Use of iterative reconstruction technique DLP: 11/05/2007 mGy-cm FINDINGS: LUNG BASES: The visualized lung bases are unremarkable. LIVER, GALLBLADDER, AND BILIARY TREE: The liver is enlarged and steatotic. No focal hepatic lesion or biliary ductal dilatation is present. The gallbladder is unremarkable with no evidence of radiopaque gallstones, gallbladder wall thickening, or obvious pericholecystic inflammatory changes. PANCREAS: Unremarkable. SPLEEN: Unremarkable. ADRENAL GLANDS: Unremarkable. KIDNEYS AND URETERS: There are 2, ill-defined, somewhat wedge-shaped areas of low-attenuation within the upper pole of the right kidney. The right kidney is normal in size and shape. No hydronephrosis, hydroureter, or calculi seen. No perinephric stranding. The left kidney is normal in appearance. BLADDER: Unremarkable. GASTROINTESTINAL TRACT: The small and large bowel are normal in caliber. There is no pericolonic inflammatory stranding or colonic wall thickening. The appendix is unremarkable. No free fluid within the abdomen or pelvis. ABDOMINAL WALL: No significant hernia is appreciated. LYMPH NODES: No lymphadenopathy. Shoddy retroperitoneal lymph nodes are again seen. VASCULAR: Unremarkable. PELVIC VISCERA: The uterus is normal in appearance there is a 2.7 x 2.8 left ovarian cyst. OSSEOUS STRUCTURES: There is a grade 1 retrolisthesis of L5 in relation to S1. CT/CT abdomen pelvis w IV con IMPRESSION: There are 2, ill-defined, somewhat wedge-shaped areas of low-attenuation within the upper pole of the right kidney. These areas of relative decreased enhancement extending to the periphery of the kidney. Acute pyelonephritis is suspected. The liver is enlarged and steatotic. Fleischner guidelines were followed. This critical result was discussed with ARTURO Perkins at 9:42 PM on 04/11/2024 and it was ascertained that the content and urgency of the report was understood at the time of direct communication. Dictated By: Bereket Sharif Jr, DO Signed By: <Electronically signed by Bereket hSarif Jr, DO in OV> 04/11/242141 DD/ 12 TD/TT: Accounting Teacher: DAMARIS External Record Review External record reviewed: Inpatient record Prescription Management I considered prescription management with: Pain Medication Medications Administered Discontinued Medications Generic Name Dose Route Start Last Admin Trade Name Freq PRN Reason Stop Dose Admin Ceftriaxone Sodium 1 gm/ 50 mls @ 100 mls/hr 04/11/24 20:32 04/11/24 22:34 Sodium Chloride IV 04/11/24 21:01 Infused ONCE ONE Infusion Sodium Chloride 1,000 mls @ 999 mls/hr 04/11/24 20:45 04/11/24 22:34 Ns IV 04/11/24 21:45 Infused .Q1H1M LEONIDES Infusion Sodium Chloride 1,000 mls @ 999 mls/hr 04/11/24 21:00 04/11/24 23:39 Ns IV 04/11/24 22:00 Infused .Q1H1M LEONIDES Infusion Sodium Chloride 1,000 mls @ 999 mls/hr 04/11/24 22:15 04/11/24 23:14 Ns IV 04/11/24 23:15 Not Given .Q1H1M LEONIDES Iohexol 100 ml 04/11/24 21:12 04/11/24 21:13 Iohexol 350 Mg/Ml 100 Ml Infus..Btl IV 04/11/24 21:13 100 ml ONCE ONE Administration Ketorolac Tromethamine 15 mg 04/11/24 20:50 04/11/24 21:14 Ketorolac Tromethamine 15 Mg/Ml Vial IVPUSH 04/11/24 20:51 15 mg ONCE ONE Administration Ondansetron HCl 4 mg 04/11/24 19:46 04/11/24 19:47 Ondansetron Odt 4 Mg Tab.Rapdis TRANSLINGU 04/11/24 19:47 4 mg ONCE ONE Administration Discharge Plan Discharge Clinical Impression: Pyelonephritis Patient Disposition: Home, Self-Care Instructions: Kidney Infection (ED) Additional Instructions: Your CT scan today shows that the infection in your bladder that has spread to your right kidney. You have refused to be admitted to the hospital at this time. Cipro as directed. Finish all antibiotics. Ibuprofen as directed. Take with food. Zofran as directed for nausea. Watch for any worsening of symptoms, including fever, severe pain, inability to tolerate food or your medications, or any other concern return immediately to the emergency department. Follow-up with your primary care provider. Call this week to schedule a follow- up appointment. Return to the emergency department if you have any worsening of symptoms, or any concerns. Get well soon! Prescriptions: New ciprofloxacin HCl 500 mg tablet 500 mg PO Q12H 7 Days Qty: 14 0RF ondansetron 4 mg tablet,disintegrating 4 mg PO Q8H PRN (Reason: nausea and vomiting) Qty: 12 0RF ibuprofen 600 mg tablet 600 mg PO Q6-8H PRN (Reason: pain) Qty: 20 0RF No Action acetaminophen [Tylenol Extra Strength] 500 mg tablet 500 mg PO Q6H PRN (Reason: pain or fever) Qty: 20 0RF lidocaine [Lidoderm] 5 % adhesive patch,medicated 1 patch topical DAILY MDD remove after 12 hours PRN (Reason: pain) Qty: 30 0RF Rx Instructions: leave on most painful area for up to 12 hrs sumatriptan succinate [Imitrex] 50 mg tablet See Rx Instructions .ROUTE .COMPLEX Qty: 10 0RF Rx Instructions: take 1 tab at onset of headache; if no relief may repeat 1 tab after at least 2 hrs; max = 2 tabs/24 hr njimhxuqff-cddkbvbdueakj-hoch [Fioricet] 50-300-40 mg capsule 1 cap PO Q6H PRN (Reason: pain) Qty: 20 0RF ibuprofen 600 mg tablet 600 mg PO Q6H PRN (Reason: pain) Qty: 20 0RF ondansetron 4 mg tablet,disintegrating 4 mg PO Q8H 3 Days Qty: 9 0RF albuterol sulfate [ProAir HFA] 90 mcg/actuation HFA aerosol inhaler 2 puff inhalation QID PRN (Reason: shortness of breath or wheezing) Qty: 8.5 0RF ketorolac 10 mg tablet 10 mg PO Q8H PRN (Reason: pain) Qty: 20 0RF cefuroxime axetil 250 mg tablet 250 mg PO BID 7 Days Qty: 14 0RF ketorolac 10 mg tablet 10 mg PO Q8H PRN (Reason: pain) Qty: 14 0RF cyclobenzaprine 10 mg tablet 10 mg PO Q8H PRN (Reason: Muscle spasm) Qty: 14 0RF cyclobenzaprine 10 mg tablet 5 mg PO TID PRN (Reason: back pain) 7 Days Qty: 21 0RF nitrofurantoin monohyd/m-cryst [Macrobid] 100 mg capsule 100 mg PO Q12H 7 Days Qty: 14 0RF Rx Instructions: must administer with a meal/food phenazopyridine 100 mg tablet 100 mg PO TID Qty: 6 0RF metronidazole 500 mg tablet 500 mg PO Q8H 7 Days Qty: 21 0RF benzonatate 200 mg capsule 200 mg PO TID PRN (Reason: cough) 7 Days Qty: 14 0RF ondansetron HCl 4 mg tablet 4 mg PO Q6-8H PRN (Reason: nausea and vomiting) Qty: 10 0RF qoaqujtlwq-srlaammexeuwv-mkoc 50-300-40 mg capsule 1 cap PO Q6H PRN (Reason: pain) Qty: 10 0RF fluconazole 150 mg tablet 150 mg PO DAILY Qty: 1 0RF Rx Instructions: May take in 3-4 days if hospital dose does not resolve symptoms Stand Alone Forms: Work/School Release Interventions: ED Discharge Assessment Last Done: 04/11/24 23:51 Discharge Date/Time: 04/11/24 23:52 Print Language: [place]
[2024-04-11 19:04] LABS: Appearance Urine Cloudy; Color Urine Yellow; Glucose Urine UA Negative (Negative); Leukocyte Esterase Urine Small (1+) (Negative); Nitrite Urine Positive (Negative); UMIC TRIGGER UACC YES; Urine Blood Negative (Negative); Urine Ketones Trace mg/dL (Negative); Urine Protein Trace mg/dL (Neg-Trace)
[2024-04-11 19:05] LABS: UPreg QC Valid YES; Urine Pregnancy NEGATIVE (NEGATIVE)
[2024-04-11 19:08] LABS: Basophils Absolute Auto 0.1 X10*3/uL (0.0-0.2); Basophils Percent Auto 0.3 % (0-2); Eosinophils Absolute Auto 0.1 X10*3/uL (0.0-0.4); Eosinophils Percent Auto 0.3 % (0-4); Hematocrit 42.1 % (37.0-47.0); Imm Gran Abs Auto 0.11 X10*3/uL (0.00-0.03); Imm Gran Pct Auto 0.6 % (0.0-0.4); Lactic Acid 1.1 mmol/L (0.5-2.0); Lymphocytes Absolute Auto 2.1 X10*3/uL (1.2-4.9); Lymphocytes Percent Auto 11.9 % (20-40); MANUAL DIFF FLAG SCAN; Mean Corpuscular HGB Conc 33.3 g/dl (31.0-35.0); Mean Corpuscular Hemoglobin 27.5 pg (27.0-33.0); Mean Corpuscular Volume 82.5 fL (80.0-98.0); Mean Platelet Volume 10.4 fL (9.4-12.3); Monocytes Absolute Auto 1.7 X10*3/uL (0.1-1.2); Monocytes Percent Auto 9.7 % (2-11); Neutrophils Absolute Auto 13.4 x10*3/uL (2.0-8.3); Neutrophils Percent Auto 77.2 % (45-73); Platelet Count 318 X10*3/uL (160-400); Red Cell Distribution Width 13.8 % (11.0-16.0); SCAN SMEAR FLAG 1; White Blood Count 17.3 X10*3/uL (4.8-10.8)
[2024-04-11 19:13] LABS: Alanine Aminotransferase 15 U/L (0-31); Albumin Level 4.2 g/dL (3.5-5.0); Alkaline Phosphatase 66 U/L (39-117); Anion Gap 16 (12-20); Aspartate Amino Transferase 13 U/L (5-31); Bilirubin Total 0.4 mg/dL (0.0-1.0); Blood Urea Nitrogen 6 mg/dL (9-16); Calcium 9.3 mg/dL (8.4-10.2); Carbon Dioxide 22 mmol/L (22-29); Chloride 102 mmol/L (96-108); Creatinine Clr Calc Pharmacy 140.1; Estimated Glomerular Filt Rate > 60; Glucose Random 102 mg/dL (60-115); Lipase 26 U/L (8-78); Potassium 3.9 mmol/L (3.3-5.1); Sodium 136 mmol/L (135-145); Total Protein 7.8 g/dL (6.5-8.0)
[2024-04-11 19:16] LABS: Bacteria Urine 4+ (None Seen); Hyaline Casts Urine 0-2 /LPF (0-2); UACC Culture Trigger YES
[2024-04-11 19:18] LABS: RBC Urine 0-2 /HPF (0-2)
[2024-04-11 19:42] LABS: Erythrocyte Sedimentation Rate 30 MM/HR (0-20)
[2024-04-11 19:47] LABS: SLIDE REVIEW VERIFIED
[2024-04-11] MEDS: Ondansetron ODT 4 MG TAB.RAPDIS TRANSLINGU (19:47)
[2024-04-11 19:48] VITALS: BP 142/85; PULSE 130; RESP 24; TEMP 37.6; O2SAT 94
[2024-04-11 20:00] VITALS: BP 122/55; PULSE 108; TEMP 37.6; O2SAT 96
[2024-04-11 20:00] LABS: C Reactive Protein 8.76 mg/dL (< or = 0.50)
--- NOTE | 2024-04-11 20:13 | MHC.EDTECH ---
Lactic acid andboth h sets of blood culture drawn from different sites and sent to lab .
[2024-04-11] MEDS: iohexoL 350 MG/ML 100 ML INFUS..BTL IV (21:13)
[2024-04-11] MEDS: Ketorolac Tromethamine 15 MG/ML VIAL IVPUSH (21:14)
[2024-04-11] MEDS: cefTRIAXone sodium 1 GM in 0.9 % Sodium Chloride 50 ML IV (21:14)
[2024-04-11] MEDS: 0.9 % Sodium Chloride 1,000 ML 999 ML IV ×2 (21:17→22:33)
[2024-04-11 22:00] VITALS: BP 112/53; PULSE 103; TEMP 37.1; O2SAT 96
[2024-04-11 23:01] VITALS: PULSE 99; RESP 16; O2SAT 98
--- NOTE | 2024-04-11 23:39 | PC.NURSE ---
Took over care for LENS POLISHER HAND Candice, Iv removed, fluid completed, pt getting dress and preparing for discharge.
--- NOTE | 2024-04-11 23:48 | PC.NURSE ---
pt able to void, denies any increase of pain upon discharge, reviewed discharge instruction with pt. pt verbalized understanding. no sign of distress .
[2024-04-11 23:51] VITALS: BP 135/81; PULSE 65; RESP 20; TEMP 36.8; O2SAT 98
== END 2024-04-11 23:52 | disposition home or self-care (01) ==
PROVIDERS: Nurse Practitioner Family; Emergency Provider Emergency Medicine; PCP Internal Medicine
DX: N12 Tubulo-interstitial nephritis, not specified as acute or chronic (principal); R11.2 Nausea with vomiting, unspecified; R10.31 Right lower quadrant pain; Z79.899 Other long term (current) drug therapy
CPT/HCPCS: 36415; 74177; 80053; 81001; 81003; 81025; 83605; 83690; 85025; 85652; 86140; 87040; 87086; 87088; 87186; 96361; 96365; 96366; 96375; 99285; J0696; J1885; Q9967

== ENCOUNTER 2024-04-12 13:27 | Emergency (ER) | payer OTHER, SELFPAY ==
[2024-04-12 14:16] VITALS: BP 132/85; PULSE 123; RESP 22; TEMP 39.5; O2SAT 97; BMI 47.6
--- NOTE | 2024-04-12 14:16 | ED.ABDPAIN ---
HPI - Abdominal Pain General Chief Complaint: Abdominal Pain Stated Complaint: kidney infection Time Seen by Provider: 04/12/24 14:17 Source: patient and old records reviewed Mode of arrival: wheelchair Limitations: no limitations History of Present Illness ED Provider: Nain Chau PA-C HPI narrative: 24-year-old female with a history of anxiety, migraines who was seen here yesterday for acute onset of abdominal pain, found to have pyelonephritis presents back to the ER for worsening right-sided back pain, severe nausea, lethargy, high fevers. She was seen here yesterday, had CT scan showing acute pyelonephritis. She was given IV Rocephin, Toradol, fluids and Zofran. She felt better and went home despite being encouraged to stay for admission. She states today she had worsening symptoms prompting her to come back to the ER. She feels very weak. Unable to tolerate her oral ciprofloxacin that was prescribed yesterday. MD elicited complaint: abdominal pain and other (Weakness, fever, back pain) Pertinent past history: other (Pyelonephritis) Onset (ago): day(s) Pain Consistency: constant Location: R flank Severity: severe Quality: stabbing Radiation: none Migration to: no migration Exacerbating factors: nothing Relieving factors: nothing Associated symptoms: nausea, fever, chills and anorexia Related Data Previous Rx's ?Medication ?Instructions ?Recorded acetaminophen 500 mg tablet 500 mg PO Q6H PRN pain or fever 01/04/21 (Tylenol Extra Strength) #20 tabs lidocaine 5 % topical patch 1 patch topical DAILY PRN pain #30 01/04/21 (Lidoderm) ea zhqwjvawuv-qhvqctipmbfre-dcfdrtvb 1 cap PO Q6H PRN pain #20 caps 03/20/21 50 mg-300 mg-40 mg capsule (Fioricet) sumatriptan succinate 50 mg tablet See Rx Instructions PO .COMPLEX 03/20/21 (Imitrex) #10 tabs ibuprofen 600 mg tablet 600 mg PO Q6H PRN pain #20 tabs 12/14/21 cyclobenzaprine 10 mg tablet 5 mg (1/2 x 10 mg) PO TID PRN back 04/26/22 pain 7 days #21 tabs albuterol sulfate 90 mcg/actuation 2 puff inhalation QID PRN 05/06/22 aerosol inhaler (ProAir HFA) shortness of breath or wheezing #8.5 grams ketorolac 10 mg tablet 10 mg PO Q8H PRN pain #20 tabs 05/06/22 ondansetron 4 mg disintegrating 4 mg PO Q8H 3 days #9 tabs 05/06/22 tablet nitrofurantoin 100 mg PO Q12H 7 days #14 caps 06/15/22 monohydrate/macrocrystals 100 mg capsule (Macrobid) phenazopyridine 100 mg tablet 100 mg PO TID 6 doses #6 tabs 06/15/22 cefuroxime axetil 250 mg tablet 250 mg PO BID 7 days #14 tabs 06/25/22 cyclobenzaprine 10 mg tablet 10 mg PO Q8H PRN Muscle spasm #14 06/25/22 tabs ketorolac 10 mg tablet 10 mg PO Q8H PRN pain #14 tabs 06/25/22 metronidazole 500 mg tablet 500 mg PO Q8H 7 days #21 tabs 08/03/22 benzonatate 200 mg capsule 200 mg PO TID PRN cough 7 days #14 07/22/23 caps ondansetron HCl 4 mg tablet 4 mg PO Q6-8H PRN nausea and 07/22/23 vomiting #10 tabs otymejflju-bkrsvgdupgpnl-zbxcfsvf 1 cap PO Q6H PRN pain #10 caps 10/14/23 50 mg-300 mg-40 mg capsule fluconazole 150 mg tablet 150 mg PO DAILY #1 tab 01/02/24 ciprofloxacin HCl 500 mg tablet 500 mg PO Q12H 7 days #14 tabs 04/11/24 ibuprofen 600 mg tablet 600 mg PO Q6-8H PRN pain #20 tabs 04/11/24 ondansetron 4 mg disintegrating 4 mg PO Q8H PRN nausea and 04/11/24 tablet vomiting #12 tabs Allergies Allergy/AdvReac Type Severity Reaction Status Date / Time nickel Allergy Hives Verified 04/12/24 14:17 propylene glycol Allergy Hives Verified 04/12/24 14:17 Review of Systems Review of Systems Yes all other systems are reviewed and are negative PMFSH Past Medical History Medical History Sciatic leg pain Migraines Anxiety Scarlet fever Surgical History H/O adenoidectomy Hx of tonsillectomy Social History Social History Substance Use Type: Marijuana Advance Directives: No Advance Directives Information Provided: No Do you have a plan to hurt others: No Plan Physical Exam ED Vital Signs: Vital Signs - 24 hr 04/12/24 14:16 Temperature 103.1 F H Pulse Rate 123 H Respiratory Rate 22 H Blood Pressure 132/85 Pulse Oximetry 97 Oxygen Delivery Method Room Air BMI result Body Mass Index 47.6 Appearance: Appears unwell, slightly lethargic, uncomfortable Head: normocephalic, atraumatic. Eyes: Pupils equal, round and reactive to light. ENT: Pharynx normal. No tonsillar swelling or exudate. Neck: Normal inspection. Neck supple. CVS: Normal heart rate and rhythm. Pulses normal. Respiratory: No respiratory distress. Breath sounds normal. Abdomen: Obese, soft w/ right mid/lower abdominal tenderness, no guarding or rebound, right flank tenderness, normal active +BS x4 Skin: Skin hot and dry. Normal skin color. Normal skin turgor. No rashes. Extremities: No lower extremity edema. No joint swelling. Neuro/psych: Oriented X 3. Slow speech, globally weak, nonfocal Course Reevaluation(s) Reevaluation #1: Upon re-evaluation, patient's pain is improved after Toradol and morphine. She is getting IV fluids. Her heart rates down to low 100s. Will admit for further management. Time: 15:44 Medical Decision Making Medical Decision Making MDM Narrative: 24-year-old female with recently diagnosed pyelonephritis yesterday presents back to the ER with worsening symptoms. Her culture yesterday is growing Gram-negative rods greater than 100,000. She had leukocytosis of 17,[address] scan with evidence of pyelonephritis on the right. On arrival to the ER today patient is toxic appearing, she is febrile to 103 and tachycardic to 120. Patient was given IV fluids, IV morphine, IV Toradol. IV Levaquin ordered with concern for possible resistance to cephalosporins. Repeat lab work today showed a slightly improvement in her leukocytosis, WBC 14.4. Renal function remains normal. She her lactate is normal. Upon reassessment pain and vital signs are improved after fluids and meds. Will admit to the hospital for further management. Patient agrees to hospitalization Differential Diagnosis Differential Diagnoses: The differential diagnosis associated with the presentation includes Acute pyelonephritis, resistant bacteria causing urinary tract infection, kidney stone, renal necrosis, appendicitis Admission/Observation Consideration of admission/observation: Escalation of care including admission/observation considered Consult Healthcare Provider Management of the patient was discussed with: Hospitalist Lab Data MDM Lab Attestation statement: I reviewed the patient's lab results. Leukocytosis, improved from yesterday, normal renal function 04/12/24 14:45 04/12/24 14:45 Labs: Lab Results 04/12/24 Range/Units 14:45 WBC 14.4 H (4.8-10.8) X10*3/uL RBC 4.92 (4.20-5.50) X10*6/uL Hgb 13.5 (12.0-16.0) g/dl Hct 40.1 (37.0-47.0) % MCV 81.5 (80.0-98.0) fL MCH 27.4 (27.0-33.0) pg MCHC 33.7 (31.0-35.0) g/dl RDW 13.8 (11.0-16.0) % Plt Count 274 (160-400) X10*3/uL MPV 9.9 (9.4-12.3) fL Immature Gran % (Auto) 0.6 H (0.0-0.4) % Neut % (Auto) 79.4 H (45-73) % Lymph % (Auto) 8.3 L (20-40) % [place] % (Auto) 11.5 H (2-11) % Eos % (Auto) 0.1 (0-4) % Baso % (Auto) 0.1 (0-2) % Lymph # (Auto) 1.2 (1.2-4.9) X10*3/uL [place] # (Auto) 1.7 H (0.1-1.2) X10*3/uL Eos # (Auto) 0.0 (0.0-0.4) X10*3/uL Baso # (Auto) 0.0 (0.0-0.2) X10*3/uL Abs Immat Gran (auto) 0.09 H (0.00-0.03) X10*3/uL Absolute Neuts (auto) 11.4 H (2.0-8.3) x10*3/uL Absolute Nucleated RBC 0.000 (0.0-0.012) X10*3/uL Nucleated RBC % (auto) 0.0 (0.0-0.2) /100WBC Smear Tech's Comments VERIFIED Sodium 136 (135-145) mmol/L Potassium 3.8 (3.3-5.1) mmol/L Chloride 104 (96-108) mmol/L Carbon Dioxide 22 (22-29) mmol/L Anion Gap 14 (12-20) BUN 5 L (9-16) mg/dL Creatinine 0.83 (0.5-1.4) mg/dL Estim Creat Clear Calc 138.4 Estimated GFR > 60 Random Glucose 100 (60-115) mg/dL Lactic Acid 1.1 (0.5-2.0) mmol/L Calcium 9.2 (8.4-10.2) mg/dL Magnesium 1.9 (1.6-2.6) mg/dL Total Bilirubin 0.4 (0.0-1.0) mg/dL Direct Bilirubin 0.2 (0.0-0.5) mg/dL AST 14 (5-31) U/L ALT 14 (0-31) U/L Alkaline Phosphatase 65 (39-117) U/L Total Protein 7.4 (6.5-8.0) g/dL Albumin 3.9 (3.5-5.0) g/dL Radiology Impression Discussion of test interpretation with radiology: I have reviewed the radiologist's reading. Radiologist Impression: EXAMINATION: CT ABDOMEN AND PELVIS WITH CONTRAST CLINICAL INFORMATION: Abdominal pain. Nausea and vomiting. COMPARISON: CT abdomen pelvis dated 08/01/2022. TECHNIQUE: Multidetector volumetric images were obtained from the superior aspect of the liver through the pubic symphysis following administration 85 mL of Omnipaque 350 intravenous contrast. Sagittal and coronal reformatted images were obtained on the technologist's workstation. Oral contrast: No This CT examination was performed using dose optimization techniques as appropriate, variously including the following: *Automated exposure control *Adjustment of mA and/or kV according to patient size (this includes techniques or standardized protocols for targeted exams where dose is matched to indication/reason for exam; i.e. extremities or head) *Use of iterative reconstruction technique DLP: 11/05/2007 mGy-cm FINDINGS: LUNG BASES: The visualized lung bases are unremarkable. LIVER, GALLBLADDER, AND BILIARY TREE: The liver is enlarged and steatotic. No focal hepatic lesion or biliary ductal dilatation is present. The gallbladder is unremarkable with no evidence of radiopaque gallstones, gallbladder wall thickening, or obvious pericholecystic inflammatory changes. PANCREAS: Unremarkable. SPLEEN: Unremarkable. ADRENAL GLANDS: Unremarkable. KIDNEYS AND URETERS: There are 2, ill-defined, somewhat wedge-shaped areas of low-attenuation within the upper pole of the right kidney. The right kidney is normal in size and shape. No hydronephrosis, hydroureter, or calculi seen. No perinephric stranding. The left kidney is normal in appearance. BLADDER: Unremarkable. GASTROINTESTINAL TRACT: The small and large bowel are normal in caliber. There is no pericolonic inflammatory stranding or colonic wall thickening. The appendix is unremarkable. No free fluid within the abdomen or pelvis. ABDOMINAL WALL: No significant hernia is appreciated. LYMPH NODES: No lymphadenopathy. Shoddy retroperitoneal lymph nodes are again seen. VASCULAR: Unremarkable. PELVIC VISCERA: The uterus is normal in appearance there is a 2.7 x 2.8 left ovarian cyst. OSSEOUS STRUCTURES: There is a grade 1 retrolisthesis of L5 in relation to S1. CT/CT abdomen pelvis w IV con IMPRESSION: There are 2, ill-defined, somewhat wedge-shaped areas of low-attenuation within the upper pole of the right kidney. These areas of relative decreased enhancement extending to the periphery of the kidney. Acute pyelonephritis is suspected. The liver is enlarged and steatotic. External Record Review External record reviewed: Prior outpatient labs and Prior outpatient radiology Tests considered The following testing was considered but not selected: Considered a renal ultrasound however CT scan from yesterday was reviewed, this can be done as an inpatient if needed Prescription Management I considered prescription management with: Pain Medication and Antibiotic Medications Administered Generic Name Dose Route Start Last Admin Trade Name Freq PRN Reason Stop Dose Admin Sodium Chloride 1,000 mls @ 999 mls/hr 04/12/24 15:45 04/12/24 15:55 Ns IV 04/12/24 16:45 999 mls/hr .Q1H1M LEONIDES Administration Discontinued Medications Generic Name Dose Route Start Last Admin Trade Name Thien PRN Reason Stop Dose Admin Acetaminophen 975 mg 04/12/24 14:17 04/12/24 15:01 Acetaminophen 325 Mg Tablet PO 04/12/24 14:18 975 mg ONCE ONE Administration Sodium Chloride 1,000 mls @ 999 mls/hr 04/12/24 14:30 04/12/24 15:22 Ns IVCONT 04/12/24 15:30 999 mls/hr .Q1H1M LEONIDES Administration Levofloxacin 500 mg in 100 mls @ 100 mls/hr 04/12/24 14:17 04/12/24 15:15 Levaquin IV 04/12/24 15:16 100 mls/hr ONCE ONE Administration Ketorolac Tromethamine 15 mg 04/12/24 14:17 04/12/24 15:16 Ketorolac Tromethamine 15 Mg/Ml Vial IVPUSH 04/12/24 14:18 15 mg ONCE ONE Administration Morphine Sulfate 4 mg 04/12/24 14:17 04/12/24 15:04 Morphine Sulfate 4 Mg/Ml Cartridge IVPUSH 04/12/24 14:18 4 mg ONCE ONE Administration Protocol Critical Care Time Critical Care Time Critical Care Time: Yes Total Critical Care Time: 32 Attestation: I have personally provided critical care time exclusive of time spent on separately billable procedures. Time includes review of lab data, radiology results, discussion with consultants, and monitoring for potential decompensation. Intervention performed as documented. Discharge Plan Discharge Clinical Impression: Pyelonephritis Sepsis Qualifiers: Sepsis type: sepsis due to unspecified organism Sepsis acute organ dysfunction status: unspecified Qualified Code(s): A41.9 - Sepsis, unspecified organism Patient Disposition: Admitted As Inpatient Print Language: Frisian
[2024-04-12 14:53] LABS: Basophils Percent Auto 0.1 % (0-2); Eosinophils Percent Auto 0.1 % (0-4); Hematocrit 40.1 % (37.0-47.0); Hemoglobin 13.5 g/dl (12.0-16.0); Imm Gran Abs Auto 0.09 X10*3/uL (0.00-0.03); Imm Gran Pct Auto 0.6 % (0.0-0.4); Lymphocytes Absolute Auto 1.2 X10*3/uL (1.2-4.9); Lymphocytes Percent Auto 8.3 % (20-40); MANUAL DIFF FLAG SCAN; Mean Corpuscular HGB Conc 33.7 g/dl (31.0-35.0); Mean Corpuscular Hemoglobin 27.4 pg (27.0-33.0); Mean Corpuscular Volume 81.5 fL (80.0-98.0); Mean Platelet Volume 9.9 fL (9.4-12.3); Monocytes Absolute Auto 1.7 X10*3/uL (0.1-1.2); Monocytes Percent Auto 11.5 % (2-11); Neutrophils Absolute Auto 11.4 x10*3/uL (2.0-8.3); Neutrophils Percent Auto 79.4 % (45-73); Platelet Count 274 X10*3/uL (160-400); Red Blood Count 4.92 X10*6/uL (4.20-5.50); Red Cell Distribution Width 13.8 % (11.0-16.0); SCAN SMEAR FLAG 1; White Blood Count 14.4 X10*3/uL (4.8-10.8)
[2024-04-12] MEDS: Acetaminophen 325 MG TABLET 975 MG PO (15:01)
[2024-04-12] MEDS: Morphine Sulfate 4 MG/ML CARTRIDGE IVPUSH (15:04)
[2024-04-12 15:14] LABS: Lactic Acid 1.1 mmol/L (0.5-2.0)
[2024-04-12] MEDS: levoFLOXacin/D5W 500 MG/100 ML PIGGYBACK 100 MG IV (15:15)
[2024-04-12] MEDS: Ketorolac Tromethamine 15 MG/ML VIAL IVPUSH ×2 (15:16→21:47)
[2024-04-12 15:20] LABS: Alanine Aminotransferase 14 U/L (0-31); Albumin Level 3.9 g/dL (3.5-5.0); Alkaline Phosphatase 65 U/L (39-117); Anion Gap 14 (12-20); Aspartate Amino Transferase 14 U/L (5-31); Bilirubin Direct 0.2 mg/dL (0.0-0.5); Bilirubin Total 0.4 mg/dL (0.0-1.0); Blood Urea Nitrogen 5 mg/dL (9-16); Calcium 9.2 mg/dL (8.4-10.2); Carbon Dioxide 22 mmol/L (22-29); Chloride 104 mmol/L (96-108); Creatinine Clr Calc Pharmacy 138.4; Estimated Glomerular Filt Rate > 60; Glucose Random 100 mg/dL (60-115); Magnesium 1.9 mg/dL (1.6-2.6); Potassium 3.8 mmol/L (3.3-5.1); Sodium 136 mmol/L (135-145); Total Protein 7.4 g/dL (6.5-8.0)
[2024-04-12] MEDS: 0.9 % Sodium Chloride 1,000 ML 999 ML IVCONT (15:22)
[2024-04-12 15:24] LABS: SLIDE REVIEW VERIFIED
[2024-04-12] MEDS: 0.9 % Sodium Chloride 1,000 ML 999 ML IV (15:55)
--- NOTE | 2024-04-12 16:08 | PM.IMHP ---
History of Present Illness Date of Service: 04/12/24 Attending physician on admission: Shivam [facility] Chief Complaint: Flank pain, fever 24-year-old female with history of mood disorder, IBS, genital herpes on suppressive valacyclovir presented to the ED earlier today for evaluation of severe right flank pain radiating to the right lower quadrant and weakness with fevers. She had initially presented to our ED last night and was diagnosed with acute pyelonephritis on CT scan with positive urinalysis but declined admission at that time. She was discharged home with ciprofloxacin which she states she had not yet picked up until this morning. However, was feeling significantly worse this morning with severe right flank pain radiating to the right lower quadrant, subjective fevers, and weakness so re-presented to the ED for evaluation. Denies dysuria, hematuria, increased urinary frequency, urgency, persistent nausea and vomiting though does endorse nausea and vomiting last night. On arrival, patient febrile to 103.1, tachycardic 123 with tachypnea. No hypotension. On admission, normal temperature of 98.7 degrees. She has a leukocytosis of 14.4. Renal function electrolyte levels normal. Urinalysis performed yesterday significant for 1+ leukocytes, positive nitrites, positive urinary sediment, 4+ bacteria. Urine culture obtained yesterday with Gram-negative rods. Blood cultures are pending. CT abdomen pelvis yesterday shows evidence of acute pyelonephritis. In the ED, has been given IV morphine, Tylenol, Levaquin, and IV NS. She will be admitted for further management of acute pyelonephritis with sepsis. Review of Systems Review of Systems: General: No fevers, malaise, unintentional weight loss HEENT: No blurred vision, diplopia. No sore throat, nasal congestion, rhinorrhea, sinus pain, ear pain Cardiovascular: No chest pain, palpitations, or leg edema Respiratory: No shortness of breath, wheezing, cough GI: +abdominal pain, nausea, vomiting, . No diarrhea, constipation, melena, hematochezia : No dysuria, hematuria, increased urinary frequency, decreased urinary output MSK: +R flank pain. No myalgia Neuro: No headaches, weakness, paresthesias Skin: No rashes or lesions [facility] [place] Medical History (Updated 04/12/24 @ 16:13 by ARTURO Ram) Genital herpes Mood disorder Sciatic leg pain Migraines Anxiety Scarlet fever Surgical History H/O adenoidectomy Hx of tonsillectomy Social History Alcohol intake: current Alcohol intake frequency: holidays/special occasions only Patient Tobacco Use Status: Former Tobacco user Smoked in Last 30 Days: Yes Use of substances other than those prescribed or required for medical reasons: Yes Substance Use Type: Marijuana Substance Use Frequency: Occasionally Advance Directives: No Advance Directives Information Provided: No Do you have a plan to hurt others: No Plan Nutrition Risks: No Nutritional Risk Meds Allergies Allergy/AdvReac Type Severity Reaction Status Date / Time nickel Allergy Hives Verified 04/12/24 14:17 propylene glycol Allergy Hives Verified 04/12/24 14:17 Active Medications: Current Medications Acetaminophen (Acetaminophen 325 Mg Tablet) 650 mg PO Q6H PRN PRN Reason: Pain, Mild (Pain Scale 1-3) Enoxaparin Sodium (Enoxaparin Sodium 40 Mg/0.4 Ml Syringe) 40 mg SUBCUT Q24H [facility] Sodium Chloride (Ns) 1,000 mls @ 999 mls/hr IV .Q1H1M LEONIDES Stop: 04/12/24 16:45 Last Admin: 04/12/24 15:55 Dose: 999 mls/hr Sodium Chloride (Ns) 1,000 mls @ 125 mls/hr IVCONT .Q8H [facility] Ceftriaxone Sodium 1 gm/ (Sodium Chloride) 50 mls @ 100 mls/hr IV Q24H [facility] Magnesium Hydroxide (Milk Of Magnesia 30 Ml Oral.Susp) 30 ml PO DAILY PRN PRN Reason: Constipation Ondansetron HCl (Ondansetron Hcl 4 Mg/2 Ml Vial) 4 mg IVPUSH Q8H PRN PRN Reason: Nausea and Vomiting Sodium Chloride (0.9 % Sodium Chloride Flush 3 Ml Syringe) 3 ml IVFLUSH QSHIFT [facility] Home Medications ?Medication ?Instructions ?Recorded ?Confirmed ?Last Taken ?Type bupropion HCl 300 mg 24 hr tablet, 300 mg PO QAM 04/12/24 04/12/24 Unknown History extended release clonazepam 0.5 mg tablet 0.5 mg PO DAILY PRN Anxiety 04/12/24 04/12/24 Unknown History clonidine HCl 0.1 mg tablet 0.1 mg PO BEDTIME PRN Sleep 04/12/24 04/12/24 Unknown History duloxetine 30 mg capsule,delayed 30 mg PO QAM 04/12/24 04/12/24 Unknown History release duloxetine 60 mg capsule,delayed 60 mg PO QAM 04/12/24 04/12/24 Unknown History release meloxicam 7.5 mg tablet 7.5 mg PO DAILY 04/12/24 04/12/24 Unknown History valacyclovir 500 mg tablet 500 mg PO DAILY 04/12/24 04/12/24 Unknown History Physical Exam Vital Signs and Narrative: Vital Signs: Last Vital Signs Temp 103.1 F H 04/12/24 14:16 Pulse 123 H 04/12/24 14:16 Resp 22 H 04/12/24 14:16 BP 132/85 04/12/24 14:16 Pulse Ox 97 04/12/24 14:16 O2 Del Method Room Air 04/12/24 14:16 BMI result Body Mass Index 47.6 Constitutional - Awake and Alert, No apparent distress Eyes - PERRLA, EOMI Cardiovascular - S1S2, RRR, No edema Respiratory - Normal lung expansion, Normal respiratory effort, No respiratory distress, CTA bilaterally Gastrointestinal - NT / ND; +BS; No rebound or guarding - No CVA tenderness Extremities - no calf tenderness bilaterally, no swelling Skin - Warm/Dry Neurological - Alert & oriented x3 Psychological - Appropriate affect Results Labs 04/13/24 05:29 04/13/24 05:29 Labs: Laboratory Results - last 24 hr 04/12/24 14:45 MCV 81.5 MCH 27.4 MCHC 33.7 RDW 13.8 Plt Count 274 MPV 9.9 Immature Gran % (Auto) 0.6 H Neut % (Auto) 79.4 H Lymph % (Auto) 8.3 L [place] % (Auto) 11.5 H Eos % (Auto) 0.1 Baso % (Auto) 0.1 Lymph # (Auto) 1.2 [place] # (Auto) 1.7 H Eos # (Auto) 0.0 Baso # (Auto) 0.0 Abs Immat Gran (auto) 0.09 H Absolute Neuts (auto) 11.4 H Absolute Nucleated RBC 0.000 Nucleated RBC % (auto) 0.0 Smear Tech's Comments VERIFIED Anion Gap 14 Estim Creat Clear Calc 138.4 Estimated GFR > 60 Random Glucose 100 Lactic Acid 1.1 Calcium 9.2 Magnesium 1.9 Total Bilirubin 0.4 Direct Bilirubin 0.2 AST 14 ALT 14 Alkaline Phosphatase 65 Total Protein 7.4 Albumin 3.9 Assessment and Plan (1) Sepsis: Qualifiers: Sepsis acute organ dysfunction status: unspecified Sepsis type: sepsis due to unspecified organism Qualified Code(s): A41.9 - Sepsis, unspecified organism Status: Acute (2) Pyelonephritis: Status: Acute Plan 24-year-old female with history of mood disorder, IBS, genital herpes on suppressive valacyclovir admitted for acute pyelonephritis with sepsis # acute pyelonephritis with sepsis -leukocytosis 14.4, febrile to 103.1, tachycardic, tachypneic. No lactic acidosis or end-organ damage. No severe sepsis/shock -urine culture growing Gram-negative rods -given IV Levaquin (04/12) in the ED. Initiate IV ceftriaxone (04/13) -continue IVF -pain management p.r.n. with ketorolac and morphine -follow CBC, cultures # genital herpes -continue valacyclovir for suppressive therapy. No current outbreak # mood disorder -continue home medications DVT prophylaxis-Lovenox Full code Patient requires inpatient stay at least 2 midnights for management of acute pyelonephritis with sepsis requiring IV antibiotics and close monitoring of cultures. Quality Stroke Does the patient have a stroke diagnosis?: No VTE Prior VTE?: No VTE Risk Level:: Medical - moderate - high VTE Device Contraindication: Treatment Not Indicated VTE Drug Contraindication: N/A - Med Ordered
[2024-04-12 16:22] VITALS: BP 113/61; PULSE 99; RESP 19; TEMP 36.3; O2SAT 96
--- NOTE | 2024-04-12 16:46 | PHA.MEDREC ---
Pharmacy Consult ? Medication Reconciliation Pharmacy has completed the medication reconciliation. spoke with patient to confirm medications. She did not start the ciprofloxacin or ibuprofen she was discharged with, only the zofran. Patient only took the zofran today, did not take any other medications today.
[2024-04-12] MEDS: SUMAtriptan succinate 50 MG TABLET PO (16:47)
[2024-04-12] MEDS: valACYclovir HCL 500 MG TABLET PO (16:47)
[2024-04-12 17:17] VITALS: BP 102/53; PULSE 88; RESP 14; TEMP 36.9; O2SAT 98
[2024-04-12] MEDS: 0.9 % Sodium Chloride 1,000 ML 125 ML IVCONT (17:26)
[2024-04-12 17:37] VITALS: BP 115/75; PULSE 88; RESP 14; TEMP 36.9; O2SAT 99
--- NOTE | 2024-04-12 17:42 | PC.NURSE ---
antibiotic was delayed in being given as blood cultures were not obtained with initial labs, order was given after labs drawn initially.
[2024-04-12] MEDS: Enoxaparin Sodium 40 MG/0.4 ML SYRINGE SUBCUT (18:35)
--- NOTE | 2024-04-12 21:04 | PC.NURSE ---
pt reporting blood in urine
[2024-04-12 21:36] VITALS: BP 120/58; PULSE 102; RESP 16; TEMP 36.9; O2SAT 99
[2024-04-13] MEDS: Morphine Sulfate 2 MG/ML CARTRIDGE IVPUSH (01:19)
[2024-04-13] MEDS: 0.9 % Sodium Chloride 1,000 ML 125 ML IVCONT ×2 (01:20→10:00)
--- NOTE | 2024-04-13 01:25 | PC.NURSE ---
pt c/o headache, medicated per MAR
[2024-04-13] MEDS: Butalb/Acetamin/Caff 50/325/40 TABLET 1 TAB PO (02:26)
[2024-04-13 02:40] VITALS: BP 136/91; PULSE 97; RESP 18; TEMP 37.1; O2SAT 99
[2024-04-13] MEDS: Ketorolac Tromethamine 15 MG/ML VIAL IVPUSH ×2 (03:58→12:07)
--- NOTE | 2024-04-13 04:30 | PC.NURSE ---
pt ambulated around unit independently, gait even and steady
[2024-04-13 05:44] LABS: MANUAL DIFF FLAG NO
[2024-04-13 05:48] LABS: Basophils Percent Auto 0.3 % (0-2); Eosinophils Absolute Auto 0.1 X10*3/uL (0.0-0.4); Eosinophils Percent Auto 0.7 % (0-4); Hematocrit 37.3 % (37.0-47.0); Hemoglobin 12.3 g/dl (12.0-16.0); Imm Gran Abs Auto 0.12 X10*3/uL (0.00-0.03); Lymphocytes Absolute Auto 2.1 X10*3/uL (1.2-4.9); Lymphocytes Percent Auto 18.3 % (20-40); Mean Corpuscular Hemoglobin 27.5 pg (27.0-33.0); Mean Corpuscular Volume 83.3 fL (80.0-98.0); Mean Platelet Volume 9.9 fL (9.4-12.3); Monocytes Absolute Auto 1.1 X10*3/uL (0.1-1.2); Monocytes Percent Auto 9.5 % (2-11); Neutrophils Absolute Auto 8.2 x10*3/uL (2.0-8.3); Neutrophils Percent Auto 70.2 % (45-73); Platelet Count 230 X10*3/uL (160-400); Red Blood Count 4.48 X10*6/uL (4.20-5.50); Red Cell Distribution Width 13.8 % (11.0-16.0); White Blood Count 11.7 X10*3/uL (4.8-10.8)
[2024-04-13 06:00] LABS: Anion Gap 10 (12-20); Blood Urea Nitrogen 6 mg/dL (9-16); Calcium 8.8 mg/dL (8.4-10.2); Carbon Dioxide 23 mmol/L (22-29); Chloride 106 mmol/L (96-108); Creatinine Clr Calc Pharmacy 147.2; Estimated Glomerular Filt Rate > 60; Glucose Random 110 mg/dL (60-115); Potassium 3.3 mmol/L (3.3-5.1); Sodium 136 mmol/L (135-145)
--- NOTE | 2024-04-13 06:57 | HO.PM.IMPN ---
Subjective Subjective Date of Service: 04/13/24 Interval History: f/u on febrile, acute pyelonephritis interval history: fever resolved, hsa mild flank pain wbc out of sepsis range Physical Exam Vital Signs: Vital Signs: Last Vital Signs Temp 98.8 F 04/13/24 02:40 Pulse 97 04/13/24 02:40 Resp 18 04/13/24 02:40 BP 136/91 H 04/13/24 02:40 Pulse Ox 99 04/13/24 02:40 O2 Del Method Room Air 04/13/24 02:40 BMI result Body Mass Index 47.6 General: AO X 3, no acute distress Resp: CTA bilateral CVS: S1,S2,RRR GI: +BS, NT, no distention : no flank tenderness Skin: No rash Neuro: motor grossly intact Psych: appropriate affect Objective Data Active Medications Acetaminophen (Acetaminophen 325 Mg Tablet) 650 mg PO Q6H PRN PRN Reason: Pain, Mild (Pain Scale 1-3) Bupropion HCl (Bupropion Hcl Xl 300 Mg Tab.Er.24h) 300 mg PO DAILY [facility] Clonazepam (Clonazepam 0.5 Mg Tablet) 0.5 mg PO DAILY PRN PRN Reason: Anxiety Clonidine HCl (Clonidine Hcl 0.1 Mg Tablet) 0.1 mg PO BEDTIME PRN; Protocol PRN Reason: Sleep Duloxetine HCl (Duloxetine Hcl 30 Mg Capsule.Dr) 30 mg PO DAILY [facility] Duloxetine HCl (Duloxetine Hcl 60 Mg Capsule.Dr) 60 mg PO DAILY [facility] Enoxaparin Sodium (Enoxaparin Sodium 40 Mg/0.4 Ml Syringe) 40 mg SUBCUT Q24H [facility] Last Admin: 04/12/24 18:35 Dose: 40 mg Documented By: NIKIA Sodium Chloride (Ns) 1,000 mls @ 125 mls/hr IVCONT .Q8H [facility] Last Admin: 04/13/24 01:20 Dose: 125 mls/hr Documented By: JEANNA Ceftriaxone Sodium 1 gm/ (Sodium Chloride) 50 mls @ 100 mls/hr IV Q24H [facility] Ketorolac Tromethamine (Ketorolac Tromethamine 15 Mg/Ml Vial) 15 mg IVPUSH Q6H PRN PRN Reason: Pain, Moderate(Pain Scale 4-6) Last Admin: 04/13/24 03:58 Dose: 15 mg Documented By: JEANNA Magnesium Hydroxide (Milk Of Magnesia 30 Ml Oral.Susp) 30 ml PO DAILY PRN PRN Reason: Constipation Morphine Sulfate (Morphine Sulfate 2 Mg/Ml Cartridge) 2 mg IVPUSH Q4H PRN; Protocol PRN Reason: Pain, Severe (Pain Scale 7-10) Last Admin: 04/13/24 01:19 Dose: 2 mg Documented By: JEANNA Ondansetron HCl (Ondansetron Hcl 4 Mg/2 Ml Vial) 4 mg IVPUSH Q8H PRN PRN Reason: Nausea and Vomiting Sodium Chloride (0.9 % Sodium Chloride Flush 3 Ml Syringe) 3 ml IVFLUSH QSHIFT [facility] Last Admin: 04/13/24 00:13 Dose: Not Given Documented By: JEANNA Non-Admin Reason: IV Running Valacyclovir HCl (Valacyclovir Hcl 500 Mg Tablet) 500 mg PO DAILY [facility] Labs 04/13/24 05:29 04/13/24 05:29 Labs: Laboratory Results - last 24 hr 04/12/24 04/13/24 14:45 05:29 MCV 81.5 83.3 MCH 27.4 27.5 MCHC 33.7 33.0 RDW 13.8 13.8 Plt Count 274 230 MPV 9.9 9.9 Immature Gran % (Auto) 0.6 H 1.0 H Neut % (Auto) 79.4 H 70.2 Lymph % (Auto) 8.3 L 18.3 L Ste[place] % (Auto) 11.5 H 9.5 Eos % (Auto) 0.1 0.7 Baso % (Auto) 0.1 0.3 Lymph # (Auto) 1.2 2.1 [place] # (Auto) 1.7 H 1.1 Eos # (Auto) 0.0 0.1 Baso # (Auto) 0.0 0.0 Abs Immat Gran (auto) 0.09 H 0.12 H Absolute Neuts (auto) 11.4 H 8.2 Absolute Nucleated RBC 0.000 0.000 Nucleated RBC % (auto) 0.0 0.0 Smear Tech's Comments VERIFIED Anion Gap 14 10 L Estim Creat Clear Calc 138.4 147.2 Estimated GFR > 60 > 60 Random Glucose 100 110 Lactic Acid 1.1 Calcium 9.2 8.8 Magnesium 1.9 Total Bilirubin 0.4 Direct Bilirubin 0.2 AST 14 ALT 14 Alkaline Phosphatase 65 Total Protein 7.4 Albumin 3.9 Assessment and Plan (1) Sepsis: Status: Acute (2) Pyelonephritis: Status: Acute Plan 24-year-old female with history of mood disorder, IBS, genital herpes on suppressive valacyclovir admitted for acute pyelonephritis with sepsis # acute pyelonephritis with sepsis, sepsis resolved -Culture = Klebisiel sensitive to levaquin and ceftriaxone -continue IV Abx, # genital herpes -continue valacyclovir for suppressive therapy. No current outbreak # mood disorder -continue home medications DVT prophylaxis-Lovenox Full code need for inpt: Sepsis needing IV Abx possible dc later today, if feeling better and no issues taking pills Quality Stroke Does the patient have a stroke diagnosis?: No VTE Prior VTE?: No VTE Risk Level:: Medical - moderate - high VTE Device Contraindication: Treatment Not Indicated VTE Drug Contraindication: N/A - Med Ordered
[2024-04-13 08:12] VITALS: BP 123/65; PULSE 92; RESP 16; TEMP 36.8; O2SAT 97
[2024-04-13] MEDS: DULoxetine HCl 30 MG CAPSULE.DR PO (09:18)
[2024-04-13] MEDS: valACYclovir HCL 500 MG TABLET PO (09:18)
[2024-04-13] MEDS: DULoxetine HCl 60 MG CAPSULE.DR PO (09:18)
[2024-04-13] MEDS: buPROPion HCl XL 300 MG TAB.ER.24H PO (09:18)
[2024-04-13] MEDS: Acetaminophen 325 MG TABLET 650 MG PO (09:25)
--- NOTE | 2024-04-13 10:23 | P.DS_ITS ---
DS: Providers Provider Date of Service: 04/13/24 Date of admission: 04/12/24 16:01 Primary care physician: Unknown Physician DS: Diagnosis Discharge Diagnosis (1) Sepsis: Status: Acute (2) Pyelonephritis: Status: Acute DS: Summary Hospital Course Hospital Course: admission hpi Chief Complaint: Flank pain, fever 24-year-old female with history of mood disorder, IBS, genital herpes on suppressive valacyclovir presented to the ED earlier today for evaluation of severe right flank pain radiating to the right lower quadrant and weakness with fevers. She had initially presented to our ED last night and was diagnosed with acute pyelonephritis on CT scan with positive urinalysis but declined admission at that time. She was discharged home with ciprofloxacin which she states she had not yet picked up until this morning. However, was feeling significantly worse this morning with severe right flank pain radiating to the right lower quadrant, subjective fevers, and weakness so re-presented to the ED for evaluation. Denies dysuria, hematuria, increased urinary frequency, urgency, persistent nausea and vomiting though does endorse nausea and vomiting last night. On arrival, patient febrile to 103.1, tachycardic 123 with tachypnea. No hypotension. On admission, normal temperature of 98.7 degrees. She has a leukocytosis of 14.4. Renal function electrolyte levels normal. Urinalysis performed yesterday significant for 1+ leukocytes, positive nitrites, positive urinary sediment, 4+ bacteria. Urine culture obtained yesterday with Gram- negative rods. Blood cultures are pending. CT abdomen pelvis yesterday shows evidence of acute pyelonephritis. In the ED, has been given IV morphine, Tylenol, Levaquin, and IV NS. She will be admitted for further management of acute pyelonephritis with sepsis. hospital course: The patient was hospitalized overnight and received IV antibiotics--making 3 days of IV antibiotics. By the next day, she experienced improvement: her fever subsided, her white blood cell count decreased significantly, and she no longer fits the criteria for sepsis. Additionally, her flank pain has diminished. She desires to return home, and accordingly, she will switch to oral Cefadroxil, taking 1 gram twice daily for 10 days. Her urine culture indicates Klebsiella pneumoniae, and the sensitivity profile is as follows: Organism 1 Klebsiella pneumoniae Quant > 100,000 cfu/mL Kle pneum M.I.C. RX --------- --- Ampicillin >=32 R Ceftriaxone <=0.25 S Gentamicin <=1 S Levofloxacin <=0.12 S Nitrofurantoin 64 I Trimethoprim/Sulfamethoxazole <=20 S Time Attestation Discharge Coordination Time (in mins): 35 Quality: Safe Use of Opioids Does Pt have an Active Cancer Diagnosis on the Problem List?: No Quality: Stroke Does the patient have a stroke diagnosis?: No Physical Exam Vital Signs: Vital Signs: Last Vital Signs Temp 98.3 F 04/13/24 08:12 Pulse 92 04/13/24 08:12 Resp 16 04/13/24 08:12 BP 123/65 04/13/24 08:12 Pulse Ox 97 04/13/24 08:12 O2 Del Method Room Air 04/13/24 08:12 BMI result Body Mass Index 47.6 General: AO X 3, no acute distress Resp: CTA bilateral CVS: S1,S2,RRR GI: +BS, NT, no distention Skin: No rash Neuro: motor grossly intact Psych: appropriate affect DS: Data Data Completed and Pending Labs on day of discharge: Laboratory Results - last 24 hr 04/12/24 04/13/24 14:45 05:29 WBC 14.4 H 11.7 H RBC 4.92 4.48 Hgb 13.5 12.3 Hct 40.1 37.3 MCV 81.5 83.3 MCH 27.4 27.5 MCHC 33.7 33.0 RDW 13.8 13.8 Plt Count 274 230 MPV 9.9 9.9 Immature Gran % (Auto) 0.6 H 1.0 H Neut % (Auto) 79.4 H 70.2 Lymph % (Auto) 8.3 L 18.3 L Gonzales % (Auto) 11.5 H 9.5 Eos % (Auto) 0.1 0.7 Baso % (Auto) 0.1 0.3 Lymph # (Auto) 1.2 2.1 [place] # (Auto) 1.7 H 1.1 Eos # (Auto) 0.0 0.1 Baso # (Auto) 0.0 0.0 Abs Immat Gran (auto) 0.09 H 0.12 H Absolute Neuts (auto) 11.4 H 8.2 Absolute Nucleated RBC 0.000 0.000 Nucleated RBC % (auto) 0.0 0.0 Smear Tech's Comments VERIFIED Sodium 136 136 Potassium 3.8 3.3 Chloride 104 106 Carbon Dioxide 22 23 Anion Gap 14 10 L BUN 5 L 6 L Creatinine 0.83 0.78 Estim Creat Clear Calc 138.4 147.2 Estimated GFR > 60 > 60 Random Glucose 100 110 Lactic Acid 1.1 Calcium 9.2 8.8 Magnesium 1.9 Total Bilirubin 0.4 Direct Bilirubin 0.2 AST 14 ALT 14 Alkaline Phosphatase 65 Total Protein 7.4 Albumin 3.9 Discharge Plan Discharge Clinical Impression: Pyelonephritis, Sepsis Patient Disposition: Home Health Service Prescriptions: New cefuroxime axetil 500 mg tablet 500 mg PO BID 10 Days Qty: 20 0RF Continued ondansetron 4 mg tablet,disintegrating 4 mg PO Q8H PRN (Reason: nausea and vomiting) Qty: 12 0RF clonidine HCl 0.1 mg tablet 0.1 mg PO BEDTIME PRN (Reason: Sleep) clonazepam 0.5 mg tablet 0.5 mg PO DAILY PRN (Reason: Anxiety) valacyclovir 500 mg tablet 500 mg PO DAILY meloxicam 7.5 mg tablet 7.5 mg PO DAILY bupropion HCl 300 mg tablet extended release 24 hr 300 mg PO QAM duloxetine 30 mg capsule,delayed release(DR/EC) 30 mg PO QAM duloxetine 60 mg capsule,delayed release(DR/EC) 60 mg PO QAM Referrals: Physician,Unknown J [Physician] - 1 Week Stand Alone Forms: Patient Portal Discharge page Discharge Date/Time: 04/13/24 15:18 Print Language: Bengali
[2024-04-13] MEDS: clonazePAM 0.5 MG TABLET PO (10:53)
[2024-04-13] MEDS: ondansetron HCL 4 MG/2 ML VIAL IVPUSH (12:07)
--- NOTE | 2024-04-13 13:33 | MHC.CM.PN ---
Addendum entered by Gavi Cook RN 04/13/24 15:46: Medically cleared for dc home self care. Boyfriend to transport. Original Note: Patient lives in a home w/ friends. Functionally independent. Denies use of services or DME. PCP Kelly Knight MD No HCP. CM provided education and offered assistance. Patient declined. DP: Home self care, boyfriend to transport. CM will continue to follow.
[2024-04-13] MEDS: cefTRIAXone sodium 1 GM in 0.9 % Sodium Chloride 50 ML IV (14:22)
[2024-04-13 14:50] VITALS: BP 135/77; PULSE 76; RESP 18; TEMP 36.8; O2SAT 98
== END 2024-04-13 15:18 | disposition home health service (06) ==
LOC: HO.ED 14:40 → HO.EDOVER 16:33
PROVIDERS: Physician Assistant; Emergency Provider Emergency Medicine; PCP Internal Medicine
DX: N10 Acute pyelonephritis (principal); A41.9 Sepsis, unspecified organism
CPT/HCPCS: 36415; 80048; 80076; 83605; 83735; 85025; 87040; 96361; 96365; 96372; 96375; 96376; 99285; J0696; J1650; J1885; J1956; J2270; J2405

== ENCOUNTER → 2024-04-12 16:01 | Outpatient (BNV) | payer OTHER, SELFPAY | PROVIDERS: Admitting Provider Physician Assistant; Emergency Provider Emergency Medicine; Visit Provider Physician Assistant | DX: A41.9 Sepsis, unspecified organism (principal); N12 Tubulo-interstitial nephritis, not specified as acute or chronic | CPT/HCPCS: 99223; 99239 ==

== ENCOUNTER 2024-05-22 18:34 | Emergency (ER) | payer OTHER, SELFPAY ==
[2024-05-22 18:35] VITALS: BP 143/98; PULSE 102; RESP 20; TEMP 36.1; O2SAT 100; BMI 48.1
--- NOTE | 2024-05-22 18:36 | ED_ITS ---
HPI - General Adult General Chief complaint: Dizziness Stated complaint: severe dizziness, lightheadedness Time Seen by Provider: 05/22/24 22:12 Source: patient Mode of arrival: ambulatory Limitations: no limitations History of Present Illness ED Provider: Lorenzo CHASE narrative: Patient is a 24-year-old female presenting to the emergency department with complaint of feeling lightheaded since this morning with nausea and vomiting. Took 5 tests last weekend which were positive. Last menstrual period was 04/24. Denies any abdominal pain, vaginal bleeding or other abnormal vaginal discharge. Reports some loose stool but also reports history of IBS. Denies chest pain, palpitations, dyspnea. History of one elective in the past. MD complaint: lightheaded, nausea, vomiting Onset (ago): hour(s) Associated symptoms: denies other symptoms Treatments prior to arrival: none Related Data Home Medications ?Medication ?Instructions ?Recorded ?Confirmed bupropion HCl 300 mg 24 hr tablet, 300 mg PO QAM 04/12/24 04/12/24 extended release clonazepam 0.5 mg tablet 0.5 mg PO DAILY PRN Anxiety 04/12/24 04/12/24 clonidine HCl 0.1 mg tablet 0.1 mg PO BEDTIME PRN Sleep 04/12/24 04/12/24 duloxetine 30 mg capsule,delayed 30 mg PO QAM 04/12/24 04/12/24 release duloxetine 60 mg capsule,delayed 60 mg PO QAM 04/12/24 04/12/24 release meloxicam 7.5 mg tablet 7.5 mg PO DAILY 04/12/24 04/12/24 valacyclovir 500 mg tablet 500 mg PO DAILY 04/12/24 04/12/24 Previous Rx's ?Medication ?Instructions ?Recorded ondansetron 4 mg disintegrating 4 mg PO Q8H PRN nausea and 04/11/24 tablet vomiting #12 tabs cefuroxime axetil 500 mg tablet 500 mg PO BID 10 days #20 tabs 04/14/24 cephalexin 500 mg capsule 500 mg PO TID #15 caps 05/22/24 ondansetron 4 mg disintegrating 4 mg PO Q8H PRN nausea and 05/22/24 tablet vomiting #9 tabs Allergies Allergy/AdvReac Type Severity Reaction Status Date / Time nickel Allergy Hives Verified 05/22/24 18:37 propylene glycol Allergy Hives Verified 05/22/24 18:37 Review of Systems 2 Review of Systems: As per HPI. Yes all other systems are reviewed and are negative Constitutional: Constitutional: Reports as per HPI [facility] Past Medical History Medical History (Updated 05/22/24 @ 23:27 by Gavi Ventura NP) Genital herpes Mood disorder Sciatic leg pain Migraines Anxiety Scarlet fever Surgical History H/O adenoidectomy Hx of tonsillectomy Social History Social History Alcohol intake: current Alcohol intake frequency: holidays/special occasions only Patient Tobacco Use Status: Former Tobacco user Smoked in Last 30 Days: No Substance Use Type: Marijuana Advance Directives: No Advance Directives Information Provided: No Patient : Yes service: No Physical Exam ED Vital Signs: Vital Signs - 24 hr 05/22/24 18:35 05/22/24 22:43 05/22/24 22:44 Temperature 97.0 F Pulse Rate 102 H 96 97 Respiratory Rate 20 Blood Pressure 143/98 H 125/81 135/89 Pulse Oximetry 100 Oxygen Delivery Method Room Air 05/22/24 22:45 05/22/24 22:45 Temperature Pulse Rate 104 H 97 Respiratory Rate 17 Blood Pressure 133/87 135/89 Pulse Oximetry 100 Oxygen Delivery Method Room Air BMI result Body Mass Index 48.1 Vital signs have been reviewed and appear to be correct. Blood pressure normal. Heart rate normal. Respiratory rate normal. Temperature normal. Oxygen saturation normal. Const General: cooperative and no acute distress Orientation/consciousness: oriented to person, oriented to place, oriented to time and patient oriented x3 Limitations: no limitations [facility] Head: Yes normocephalic and Yes atraumatic Ears: external ears normal General nose exam: Normal external nose present Face and sinus: Yes face symmetric Mouth: oropharynx normal and moist mucous membranes Throat: Yes uvula midline Eyes Pupils: Equal, round and reactive pupils present Neck Neck: Yes normal visual inspection and Yes supple Resp Effort & Inspection: normal respiratory effort and able to speak in complete sentences Auscultation: clear to auscultation bilaterally Cardio Rate: regular rate Rhythm: regular rhythm Heart sounds: S1 normal heart sound present and S2 normal heart sound present GI Palpation (GI): Soft to palpation and nontender Auscultation: normoactive bowel sounds General: Yes no CVA tenderness Back/Spine/Pelvis Back: no CVA tenderness Skin General skin exam: elasticity normal and turgor normal Neuro General: oriented to person, oriented to place, oriented to time, patient oriented x3, moves all extremities, no focal motor deficits and CN's II-XI intact bilaterally Cranial nerves: Yes Equal, round and reactive pupils present Cognition (Neuro): normal cognition Extrem General: Yes full ROM, Yes no pedal edema and Yes no calf tenderness Psych Mental Status: mental status grossly normal Affect: normal affect Thought process: Normal thought process present Course Course Course Narrative: RME, this is a rapid medical exam performed by Jakob Hutson please refer to primary provider for complete H&P- 24 year old female presents for evaluation of dizziness and lightheadedness. She reports a positive test on Sunday. She denies any vaginal bleeding and abdominal pain. She was once before 6 years ago and had an . Plan for EKG, labs, UA. Will defer imaging pending initial workup Medical Decision Making Medical Decision Making MDM Narrative: Patient is a 24-year-old female presenting to the emergency department with complaint of feeling lightheaded since this morning with nausea and vomiting. On exam patient is awake, A+Ox3, VS WNL, afebrile, normal neurological exam without focal deficits, physical exam findings as above. Given reported symptoms and physical exam findings, initial differential includes , nausea and vomiting of , dehydration, cardiac arrhythmia, anemia, electrolyte abnormality, UTI. Labs notable for slight leukocytosis, no anemia, no significant electrolyte abnormalities, HCG of 484. Viral serology negative. Urinalysis notable for 1+ leukocytes, 11-20 WBCs, 1+ bacteria, also notable for 11-20 epithelials. Likely contamination but given that patient is will treat for UTI with cephalexin. No orthostatic intolerance noted on orthostatic vitals. EKG shows normal sinus rhythm. Offered to treat patient with IV fluids and zofran which patient was initially agreeable to but then refused for RN. Patient specifically requesting ultrasound and discussed with patient why this is not indicated at this time. Patient states she has scheduled an [employer] appointment with Jose Prather. Return precautions discussed. Will send prescription for zofran as well. Advised patient to ensure adequate fluid intake with fluids, specifically with electrolytes. Patient verbalized understanding of and agreement with plan. Differential Diagnosis Differential Diagnoses: The differential diagnosis associated with the presentation includes As per [facility] Admission/Observation Consideration of admission/observation: Escalation of care including admission/observation considered Patient would have been admitted to the hospital had their work up had any findings where hospital admission was appropriate and their clinical presentation warranted hospital admission. Lab Data [facility] Lab Attestation statement: I reviewed the patient's lab results. As per [facility] 05/22/24 19:09 05/22/24 19:09 Labs: Lab Results 05/22/24 05/22/24 05/22/24 Range/Units 19:06 19:09 20:56 WBC 13.9 H (4.8-10.8) X10*3/uL RBC 5.06 (4.20-5.50) X10*6/uL Hgb 14.0 (12.0-16.0) g/dl Hct 41.9 (37.0-47.0) % MCV 82.8 (80.0-98.0) fL MCH 27.7 (27.0-33.0) pg MCHC 33.4 (31.0-35.0) g/dl RDW 14.6 (11.0-16.0) % Plt Count 377 D (160-400) X10*3/uL MPV 9.8 (9.4-12.3) fL Immature Gran % (Auto) 0.8 H (0.0-0.4) % Neut % (Auto) 61.0 (45-73) % Lymph % (Auto) 29.3 (20-40) % [place] % (Auto) 6.9 (2-11) % Eos % (Auto) 1.6 (0-4) % Baso % (Auto) 0.4 (0-2) % Lymph # (Auto) 4.1 (1.2-4.9) X10*3/uL [place] # (Auto) 1.0 (0.1-1.2) X10*3/uL Eos # (Auto) 0.2 (0.0-0.4) X10*3/uL Baso # (Auto) 0.1 (0.0-0.2) X10*3/uL Abs Immat Gran (auto) 0.11 H (0.00-0.03) X10*3/uL Absolute Neuts (auto) 8.5 H (2.0-8.3) x10*3/uL Absolute Nucleated RBC 0.000 (0.0-0.012) X10*3/uL Nucleated RBC % (auto) 0.0 (0.0-0.2) /100WBC Sodium 140 (135-145) mmol/L Potassium 4.3 D (3.3-5.1) mmol/L Chloride 105 (96-108) mmol/L Carbon Dioxide 25 (22-29) mmol/L Anion Gap 14 (12-20) BUN 9 (9-16) mg/dL Creatinine 0.80 (0.5-1.4) mg/dL Estim Creat Clear Calc 144.3 Estimated GFR > 60 Random Glucose 103 (60-115) mg/dL Calcium 10.2 D (8.4-10.2) mg/dL Total Bilirubin 0.2 (0.0-1.0) mg/dL AST 14 (5-31) U/L ALT 14 (0-31) U/L Alkaline Phosphatase 62 (39-117) U/L Total Protein 7.4 (6.5-8.0) g/dL Albumin 4.2 (3.5-5.0) g/dL Lipase 62 (8-78) U/L Beta HCG, Quant 484 mIU/mL Urine Color Yellow Urine Appearance Clear Urine pH 5.5 (5.0-9.0) Ur Specific [place] 1.025 (1.005-1.025) Urine Protein Negative (Neg-Trace) mg/dL Urine Glucose (UA) Negative (Negative) mg/dL Urine Ketones Negative (Negative) mg/dL Urine Blood Negative (Negative) Urine Nitrite Negative (Negative) Ur Leukocyte Esterase Small (1+) H (Negative) Urine RBC 0-2 (0-2) /HPF Urine WBC 11-20 H (0-5) /HPF Ur Squamous Epith Cells 11-20 (0-2) /HPF Urine Bacteria 1+ (None Seen) Hyaline Casts 0-2 (0-2) /LPF Influenza Type A (PCR) NEGATIVE (Negative) Influenza Type B (PCR) NEGATIVE (Negative) RSV RNA Qual (PCR) NEGATIVE (Negative) SARS-CoV-2 RNA (RT-PCR) NEGATIVE (Negative) Blood Type A Positive Independent Interpretation I performed an independent interpretation of an: EKG (normal sinus rhythm, rate 95 bpm, normal pr interval and QTc) External Record Review External record reviewed: Inpatient record, Office record and Outpatient record Prescription Management I considered prescription management with: Antibiotic and Other Discharge Plan Discharge Clinical Impression: , Urinary tract infection Patient Disposition: Home, Self-Care Instructions: (ED), Urinary Tract Infection in (ED), at 7 to 10 Weeks (ED) Additional Instructions: You were evaluated in the emergency department today for feeling lightheaded, nausea and vomiting. Your test was positive and your HCG level was 484. Your urine showed evidence of infection and you are being treated with a course of antibiotics. Please complete the full course as prescribed. Keep your scheduled follow-up appointment with Jose ESPINO. Return to the emergency department if you develop abdominal pain or cramping, vaginal bleeding, abnormal vaginal discharge, fever, fainting, chest pain, difficulty breathing or any other concerning symptoms. Prescriptions: New ondansetron 4 mg tablet,disintegrating 4 mg PO Q8H PRN (Reason: nausea and vomiting) Qty: 9 0RF cephalexin 500 mg capsule 500 mg PO TID Qty: 15 0RF No Action ondansetron 4 mg tablet,disintegrating 4 mg PO Q8H PRN (Reason: nausea and vomiting) Qty: 12 0RF clonidine HCl 0.1 mg tablet 0.1 mg PO BEDTIME PRN (Reason: Sleep) clonazepam 0.5 mg tablet 0.5 mg PO DAILY PRN (Reason: Anxiety) valacyclovir 500 mg tablet 500 mg PO DAILY meloxicam 7.5 mg tablet 7.5 mg PO DAILY bupropion HCl 300 mg tablet extended release 24 hr 300 mg PO QAM duloxetine 30 mg capsule,delayed release(DR/EC) 30 mg PO QAM duloxetine 60 mg capsule,delayed release(DR/EC) 60 mg PO QAM cefuroxime axetil 500 mg tablet 500 mg PO BID 10 Days Qty: 20 0RF Print Language: Namibian
--- NOTE | 2024-05-22 18:38 | ECG_ITS ---
Test Reason : dizziness Blood Pressure : / mmHG Vent. Rate : 095 BPM Atrial Rate : 095 BPM P-R Int : 156 ms QRS Dur : 076 ms QT Int : 324 ms P-R-T Axes : 035 027 013 degrees QTc Int : 407 ms Normal sinus rhythm Normal ECG When compared with ECG of 23-FEB-2023 12:05, No significant change was found Referred By: Emmett Hutson Electronically Signed By:ARLIN MORE MD
[2024-05-22 19:14] LABS: MANUAL DIFF FLAG NO
[2024-05-22 19:16] LABS: Basophils Absolute Auto 0.1 X10*3/uL (0.0-0.2); Basophils Percent Auto 0.4 % (0-2); Eosinophils Absolute Auto 0.2 X10*3/uL (0.0-0.4); Eosinophils Percent Auto 1.6 % (0-4); Hematocrit 41.9 % (37.0-47.0); Imm Gran Abs Auto 0.11 X10*3/uL (0.00-0.03); Imm Gran Pct Auto 0.8 % (0.0-0.4); Lymphocytes Absolute Auto 4.1 X10*3/uL (1.2-4.9); Lymphocytes Percent Auto 29.3 % (20-40); Mean Corpuscular HGB Conc 33.4 g/dl (31.0-35.0); Mean Corpuscular Hemoglobin 27.7 pg (27.0-33.0); Mean Corpuscular Volume 82.8 fL (80.0-98.0); Mean Platelet Volume 9.8 fL (9.4-12.3); Monocytes Percent Auto 6.9 % (2-11); Neutrophils Absolute Auto 8.5 x10*3/uL (2.0-8.3); Platelet Count 377 X10*3/uL (160-400); Red Blood Count 5.06 X10*6/uL (4.20-5.50); Red Cell Distribution Width 14.6 % (11.0-16.0); White Blood Count 13.9 X10*3/uL (4.8-10.8)
[2024-05-22 19:36] LABS: Alanine Aminotransferase 14 U/L (0-31); Albumin Level 4.2 g/dL (3.5-5.0); Alkaline Phosphatase 62 U/L (39-117); Anion Gap 14 (12-20); Aspartate Amino Transferase 14 U/L (5-31); Bilirubin Total 0.2 mg/dL (0.0-1.0); Blood Urea Nitrogen 9 mg/dL (9-16); Calcium 10.2 mg/dL (8.4-10.2); Carbon Dioxide 25 mmol/L (22-29); Chloride 105 mmol/L (96-108); Creatinine Clr Calc Pharmacy 144.3; Estimated Glomerular Filt Rate > 60; Glucose Random 103 mg/dL (60-115); HCG Quantitative 484 mIU/mL; Lipase 62 U/L (8-78); Potassium 4.3 mmol/L (3.3-5.1); Sodium 140 mmol/L (135-145); Total Protein 7.4 g/dL (6.5-8.0)
[2024-05-22 19:54] LABS: Influenza A PCR NEGATIVE (Negative); Influenza B PCR NEGATIVE (Negative); Resp Syncy Virus RNA Qual PCR NEGATIVE (Negative); SARS COV2 PCR INHOUSE NEGATIVE (Negative)
[2024-05-22 21:08] LABS: Appearance Urine Clear; Color Urine Yellow; Glucose Urine UA Negative (Negative); Leukocyte Esterase Urine Small (1+) (Negative); Nitrite Urine Negative (Negative); PH 5.5 (5.0-9.0); Specific Gravity - Urine 1.025 (1.005-1.025); UMIC TRIGGER UACC YES; Urine Blood Negative (Negative); Urine Ketones Negative (Negative); Urine Protein Negative (Neg-Trace)
[2024-05-22 21:10] LABS: Bacteria Urine 1+ (None Seen); Hyaline Casts Urine 0-2 /LPF (0-2); RBC Urine 0-2 /HPF (0-2); UACC Culture Trigger YES
[2024-05-22 22:43] VITALS: BP 125/81; PULSE 96
[2024-05-22 22:44] VITALS: BP 135/89; PULSE 97
[2024-05-22 22:45] VITALS: BP 133/87; BP 135/89; PULSE 104; PULSE 97; RESP 17; O2SAT 100
--- NOTE | 2024-05-22 23:16 | PC.NURSE ---
pt wanting to refuse the iv and wants to drink water. provider made aware.
[2024-05-22 23:42] VITALS: BP 128/74; PULSE 94; RESP 16; TEMP 36.7; O2SAT 98
[2024-05-22 23:48] VITALS: BP 128/74; PULSE 94; RESP 16; TEMP 36.7; O2SAT 98
== END 2024-05-22 23:49 | disposition home or self-care (01) ==
PROVIDERS: Physician Assistant; Emergency Provider Internal Medicine; PCP Internal Medicine
DX: O23.40 Unspecified infection of urinary tract in pregnancy, unspecified trimester (principal); N39.0 Urinary tract infection, site not specified; R42 Dizziness and giddiness; R11.2 Nausea with vomiting, unspecified; Z79.899 Other long term (current) drug therapy; Z03.818 Encounter for observation for suspected exposure to other biological agents ruled out
CPT/HCPCS: 0241U; 80053; 81001; 83690; 84702; 85025; 86900; 86901; 87086; 93005; 99283; 99285

== ENCOUNTER → 2024-05-22 18:38 | Outpatient (BNV) | payer OTHER, SELFPAY | PROVIDERS: Emergency Provider Internal Medicine; PCP Internal Medicine; Visit Provider Internal Medicine Cardiovascular Disease | DX: R42 Dizziness and giddiness (principal) | CPT/HCPCS: 93010 ==

== ENCOUNTER 2024-06-12 09:40 | Emergency (ER) | payer OTHER, SELFPAY ==
[2024-06-12 09:59] VITALS: BP 126/68; PULSE 84; RESP 18; TEMP 36.8; O2SAT 97; BMI 48.4
--- NOTE | 2024-06-12 10:04 | ED_ITS ---
HPI - Nausea/Vomiting/Diarrhea General Chief complaint: Nausea/Vomiting/Diarrhea Stated complaint: nausea vomiting 7 wks Time Seen by Provider: 06/12/24 09:55 Source: patient Mode of arrival: ambulatory Limitations: no limitations History of Present Illness HPI Narrative: 24-year-old female past medical history anxiety migraines history of pyelonephritis approximately 10 weeks who presents emergency department for continued vomiting. Patient is already on likely just as well as medication takes 3 times daily and Reglan. Patient is followed by an laboratory scientist denies fevers chills she states she has been vomiting all day she does take showers for her vomiting she admits to marijuana and smoking but states she recently quit. She denies ever being here in the past for recurrent vomiting with to take showers for her nausea. MD elicited complaint: nausea and vomiting Related Data Home Medications ?Medication ?Instructions ?Recorded ?Confirmed bupropion HCl 300 mg 24 hr tablet, 300 mg PO QAM 04/12/24 04/12/24 extended release clonazepam 0.5 mg tablet 0.5 mg PO DAILY PRN Anxiety 04/12/24 04/12/24 clonidine HCl 0.1 mg tablet 0.1 mg PO BEDTIME PRN Sleep 04/12/24 04/12/24 duloxetine 30 mg capsule,delayed 30 mg PO QAM 04/12/24 04/12/24 release duloxetine 60 mg capsule,delayed 60 mg PO QAM 04/12/24 04/12/24 release meloxicam 7.5 mg tablet 7.5 mg PO DAILY 04/12/24 04/12/24 valacyclovir 500 mg tablet 500 mg PO DAILY 04/12/24 04/12/24 Previous Rx's ?Medication ?Instructions ?Recorded ondansetron 4 mg disintegrating 4 mg PO Q8H PRN nausea and 04/11/24 tablet vomiting #12 tabs cefuroxime axetil 500 mg tablet 500 mg PO BID 10 days #20 tabs 04/14/24 cephalexin 500 mg capsule 500 mg PO TID #15 caps 05/22/24 ondansetron 4 mg disintegrating 4 mg PO Q8H PRN nausea and 05/22/24 tablet vomiting #9 tabs Allergies Allergy/AdvReac Type Severity Reaction Status Date / Time nickel Allergy Hives Verified 06/12/24 10:01 propylene glycol Allergy Hives Verified 06/12/24 10:01 Review of Systems 2 Review of Systems: Review of systems: General: Patient denies any fever chills recent illness or falls Musculoskeletal: Denies back pain or body aches or other injuries HEENT: denies headache, runny nose, ear pain Respiratory: denies shortness of breath, cough Cardiovascular: no chest pain or palpitations : denies dysuria, frequency Abdomen: nausea vomiting denies abdominal pain Extremities: no swelling, no pain Skin: no diaphoresis Yes all other systems are reviewed and are negative PMFSH Past Medical History Medical History (Updated 06/12/24 @ 11:04 by Ajit Almendarez DO) Genital herpes Mood disorder Sciatic leg pain Migraines Anxiety Scarlet fever Surgical History H/O adenoidectomy Hx of tonsillectomy Social History Social History Alcohol intake: current Alcohol intake frequency: holidays/special occasions only Patient Tobacco Use Status: Former Tobacco user Smoked in Last 30 Days: No Use of substances other than those prescribed or required for medical reasons: No Substance Use Type: Marijuana Advance Directives: No Advance Directives Information Provided: No Do you have a plan to hurt others: No Plan Patient : Yes service: No Physical Exam 2 Vital Signs: Vital Signs: Last Vital Signs Temp 98.2 F 06/12/24 09:59 Pulse 84 06/12/24 09:59 Resp 18 06/12/24 09:59 BP 126/68 06/12/24 09:59 Pulse Ox 97 06/12/24 09:59 O2 Del Method Room Air 06/12/24 09:59 BMI result Body Mass Index 48.4 General: Well-appearing well-nourished in no signs of distress HEENT: Normocephalic atraumatic Neck: No signs of JVD, no masses no tenderness or lymphadenopathy Cardiovascular: Regular rate and rhythm Respiratory: Clear to auscultation bilaterally Abdomen: Soft nontender no masses Extremities: Normal pedal pulses no signs of edema Skin: Dry warm no rashes Back: No tenderness full ROM Course Course Course Narrative: 1100 patient had a poor response to a capsaicin cream stating that she is alert appropriate glycol and that she is having allergic reaction either to the belly there is no signs of retraction there is minimal redness looks well nausea is completely gone labs look okay I feel comfortable discharging the patient home she has completely normal vitals and labs. Medications Administered Discontinued Medications Generic Name Dose Route Start Last Admin Trade Name Thien PRN Reason Stop Dose Admin Capsaicin 1 appl 06/12/24 10:03 06/12/24 10:17 Capsaicin 0.025% Cream 60 Gm Tube TOPICAL 06/12/24 10:04 1 appl ONCE STA Administration Protocol Sodium Chloride 1,000 mls @ 999 mls/hr 06/12/24 10:00 06/12/24 10:14 Ns IV 06/12/24 11:00 999 mls/hr .Q1H1M LEONIDES Administration Ondansetron HCl 4 mg 06/12/24 09:57 06/12/24 10:17 Ondansetron Hcl 4 Mg/2 Ml Vial IVPUSH 06/12/24 09:58 4 mg ONCE ONE Administration Medical Decision Making Medical Decision Making [facility] Narrative: I will treat the patient with Zofran fluids and reassess Differential Diagnosis Differential Diagnoses: The differential diagnosis associated with the presentation includes Patient looks well concern for hyperemesis gravidarum dehydration electrolyte abnormality. Lab Data 06/12/24 10:12 06/12/24 10:12 Labs: Lab Results 06/12/24 Range/Units 10:12 WBC 16.1 H (4.8-10.8) X10*3/uL RBC 4.85 (4.20-5.50) X10*6/uL Hgb 13.6 (12.0-16.0) g/dl Hct 39.7 (37.0-47.0) % MCV 81.9 (80.0-98.0) fL MCH 28.0 (27.0-33.0) pg MCHC 34.3 (31.0-35.0) g/dl RDW 14.2 (11.0-16.0) % Plt Count 337 (160-400) X10*3/uL MPV 9.5 (9.4-12.3) fL Immature Gran % (Auto) 1.1 H (0.0-0.4) % Neut % (Auto) 73.6 H (45-73) % Lymph % (Auto) 18.0 L (20-40) % [place] % (Auto) 6.5 (2-11) % Eos % (Auto) 0.6 (0-4) % Baso % (Auto) 0.2 (0-2) % Lymph # (Auto) 2.9 (1.2-4.9) X10*3/uL [place] # (Auto) 1.1 (0.1-1.2) X10*3/uL Eos # (Auto) 0.1 (0.0-0.4) X10*3/uL Baso # (Auto) 0.0 (0.0-0.2) X10*3/uL Abs Immat Gran (auto) 0.18 H (0.00-0.03) X10*3/uL Absolute Neuts (auto) 11.9 H (2.0-8.3) x10*3/uL Absolute Nucleated RBC 0.000 (0.0-0.012) X10*3/uL Nucleated RBC % (auto) 0.0 (0.0-0.2) /100WBC Sodium 138 (135-145) mmol/L Potassium 3.8 (3.3-5.1) mmol/L Chloride 105 (96-108) mmol/L Carbon Dioxide 24 (22-29) mmol/L Anion Gap 13 (12-20) BUN 6 L (9-16) mg/dL Creatinine 0.74 (0.5-1.4) mg/dL Estim Creat Clear Calc 156.7 Estimated GFR > 60 Random Glucose 91 (60-115) mg/dL Calcium 10.0 (8.4-10.2) mg/dL Total Bilirubin 0.4 (0.0-1.0) mg/dL Direct Bilirubin 0.1 (0.0-0.5) mg/dL AST 13 (5-31) U/L ALT 15 (0-31) U/L Alkaline Phosphatase 59 (39-117) U/L Total Protein 7.7 (6.5-8.0) g/dL Albumin 4.1 (3.5-5.0) g/dL Lipase 43 (8-78) U/L Discharge Plan Discharge Clinical Impression: Vomiting affecting Patient Disposition: Home, Self-Care Instructions: Nausea and Vomiting in (ED) Additional Instructions: You were seen today for nausea and vomiting in . You were given Zofran as well as labs checked which were all unremarkable. Please call follow up with your doctor if you have any other concerns please return to the emergency department. Prescriptions: No Action ondansetron 4 mg tablet,disintegrating 4 mg PO Q8H PRN (Reason: nausea and vomiting) Qty: 12 0RF clonidine HCl 0.1 mg tablet 0.1 mg PO BEDTIME PRN (Reason: Sleep) clonazepam 0.5 mg tablet 0.5 mg PO DAILY PRN (Reason: Anxiety) valacyclovir 500 mg tablet 500 mg PO DAILY meloxicam 7.5 mg tablet 7.5 mg PO DAILY bupropion HCl 300 mg tablet extended release 24 hr 300 mg PO QAM duloxetine 30 mg capsule,delayed release(DR/EC) 30 mg PO QAM duloxetine 60 mg capsule,delayed release(DR/EC) 60 mg PO QAM cefuroxime axetil 500 mg tablet 500 mg PO BID 10 Days Qty: 20 0RF ondansetron 4 mg tablet,disintegrating 4 mg PO Q8H PRN (Reason: nausea and vomiting) Qty: 9 0RF cephalexin 500 mg capsule 500 mg PO TID Qty: 15 0RF Print Language: Tajik
[2024-06-12] MEDS: 0.9 % Sodium Chloride 1,000 ML 999 ML IV (10:14)
[2024-06-12] MEDS: ondansetron HCL 4 MG/2 ML VIAL IVPUSH (10:17)
[2024-06-12] MEDS: Capsaicin 0.025% Cream 60 GM TUBE 1 APPL TOPICAL (10:17)
[2024-06-12 10:23] LABS: MANUAL DIFF FLAG NO
[2024-06-12 10:30] LABS: Basophils Percent Auto 0.2 % (0-2); Eosinophils Absolute Auto 0.1 X10*3/uL (0.0-0.4); Eosinophils Percent Auto 0.6 % (0-4); Hematocrit 39.7 % (37.0-47.0); Hemoglobin 13.6 g/dl (12.0-16.0); Imm Gran Abs Auto 0.18 X10*3/uL (0.00-0.03); Imm Gran Pct Auto 1.1 % (0.0-0.4); Lymphocytes Absolute Auto 2.9 X10*3/uL (1.2-4.9); Mean Corpuscular HGB Conc 34.3 g/dl (31.0-35.0); Mean Corpuscular Volume 81.9 fL (80.0-98.0); Mean Platelet Volume 9.5 fL (9.4-12.3); Monocytes Absolute Auto 1.1 X10*3/uL (0.1-1.2); Monocytes Percent Auto 6.5 % (2-11); Neutrophils Absolute Auto 11.9 x10*3/uL (2.0-8.3); Neutrophils Percent Auto 73.6 % (45-73); Platelet Count 337 X10*3/uL (160-400); Red Blood Count 4.85 X10*6/uL (4.20-5.50); Red Cell Distribution Width 14.2 % (11.0-16.0); White Blood Count 16.1 X10*3/uL (4.8-10.8)
[2024-06-12 10:39] LABS: Alanine Aminotransferase 15 U/L (0-31); Albumin Level 4.1 g/dL (3.5-5.0); Alkaline Phosphatase 59 U/L (39-117); Anion Gap 13 (12-20); Aspartate Amino Transferase 13 U/L (5-31); Bilirubin Direct 0.1 mg/dL (0.0-0.5); Bilirubin Total 0.4 mg/dL (0.0-1.0); Blood Urea Nitrogen 6 mg/dL (9-16); Carbon Dioxide 24 mmol/L (22-29); Chloride 105 mmol/L (96-108); Creatinine Clr Calc Pharmacy 156.7; Estimated Glomerular Filt Rate > 60; Glucose Random 91 mg/dL (60-115); Lipase 43 U/L (8-78); Potassium 3.8 mmol/L (3.3-5.1); Sodium 138 mmol/L (135-145); Total Protein 7.7 g/dL (6.5-8.0)
[2024-06-12 12:40] VITALS: BP 126/82; PULSE 65; RESP 16; TEMP 36.8; O2SAT 98
== END 2024-06-12 12:42 | disposition home or self-care (01) ==
PROVIDERS: Emergency Provider Student in an Organized Health Care Education/Training Program; PCP Internal Medicine
DX: O21.9 Vomiting of pregnancy, unspecified (principal); Z3A.01 Less than 8 weeks gestation of pregnancy
CPT/HCPCS: 36415; 80048; 80076; 83690; 85025; 96361; 96374; 99284; J2405

== ENCOUNTER 2024-07-24 08:17 | Emergency (ER) | payer OTHER, SELFPAY ==
--- NOTE | ~2024-07-24 | XR_ITS ---
EXAMINATION: XR ANKLE, LEFT XR FOOT, LEFT CLINICAL INFORMATION: Fall. Pain. COMPARISON: None available. TECHNIQUE: AP and lateral views of the left ankle. AP, lateral, and oblique views of the left foot. FINDINGS: No fracture identified. Alignment is anatomic. No erosions. Joint spaces appear maintained. Soft tissues appear unremarkable. XR/XR ankle LT min 3V IMPRESSION: Unremarkable plain film examinations of the left ankle and left foot. Electronically signed by: Ajit Mccall MD 07/24/2024 11:58 AM EDT
--- NOTE | ~2024-07-24 | XR_ITS ---
EXAMINATION: XR ANKLE, LEFT XR FOOT, LEFT CLINICAL INFORMATION: Fall. Pain. COMPARISON: None available. TECHNIQUE: AP and lateral views of the left ankle. AP, lateral, and oblique views of the left foot. FINDINGS: No fracture identified. Alignment is anatomic. No erosions. Joint spaces appear maintained. Soft tissues appear unremarkable. XR/XR foot LT 2V IMPRESSION: Unremarkable plain film examinations of the left ankle and left foot. Electronically signed by: Ajit Mccall MD 07/24/2024 11:58 AM EDT
[2024-07-24 08:19] VITALS: BP 127/75; PULSE 86; RESP 18; TEMP 36.6; O2SAT 97; BMI 36.6
[2024-07-24 09:29] VITALS: BP 139/83; PULSE 94; RESP 18; O2SAT 100
--- NOTE | 2024-07-24 09:37 | ED.GENADULT ---
HPI - General Adult General Chief complaint: Extremity Injury, Lower Stated complaint: fall-l foot inj Time Seen by Provider: 07/24/24 09:20 Source: patient Mode of arrival: ambulatory Limitations: no limitations History of Present Illness ED Provider: Luis Enrique Gomez PA-C HPI narrative: He will female 13 weeks presents to the ED for left ankle pain. Patient states this morning she was coming down the stairs and she twisted left ankle NSAID fell onto her buttocks down 3 stairs only. Patient denies hitting head or loss of consciousness. Patient denies falling onto abdomen. Patient states since incident this morning she denies any abdominal pain, vaginal bleeding, vaginal discharge,, dizziness, nausea, or vomiting. Related Data Home Medications ?Medication ?Instructions ?Recorded ?Confirmed bupropion HCl 300 mg 24 hr tablet, 300 mg PO QAM 04/12/24 04/12/24 extended release clonazepam 0.5 mg tablet 0.5 mg PO DAILY PRN Anxiety 04/12/24 04/12/24 clonidine HCl 0.1 mg tablet 0.1 mg PO BEDTIME PRN Sleep 04/12/24 04/12/24 duloxetine 30 mg capsule,delayed 30 mg PO QAM 04/12/24 04/12/24 release duloxetine 60 mg capsule,delayed 60 mg PO QAM 04/12/24 04/12/24 release meloxicam 7.5 mg tablet 7.5 mg PO DAILY 04/12/24 04/12/24 valacyclovir 500 mg tablet 500 mg PO DAILY 04/12/24 04/12/24 Previous Rx's ?Medication ?Instructions ?Recorded ondansetron 4 mg disintegrating 4 mg PO Q8H PRN nausea and 04/11/24 tablet vomiting #12 tabs cefuroxime axetil 500 mg tablet 500 mg PO BID 10 days #20 tabs 04/14/24 cephalexin 500 mg capsule 500 mg PO TID #15 caps 05/22/24 ondansetron 4 mg disintegrating 4 mg PO Q8H PRN nausea and 05/22/24 tablet vomiting #9 tabs Allergies Allergy/AdvReac Type Severity Reaction Status Date / Time nickel Allergy Hives Verified 07/24/24 08:22 propylene glycol Allergy Hives Verified 07/24/24 08:22 Review of Systems Review of Systems: Left ankle pain Yes all other systems are reviewed and are negative PMFSH Past Medical History Medical History (Updated 07/25/24 @ 00:01 by Lokesh Goode) Genital herpes Mood disorder Sciatic leg pain Migraines Anxiety Scarlet fever Surgical History H/O adenoidectomy Hx of tonsillectomy Social History Social History Alcohol intake: current Alcohol intake frequency: holidays/special occasions only Patient Tobacco Use Status: Former Tobacco user Smoked in Last 30 Days: No Use of substances other than those prescribed or required for medical reasons: No Substance Use Type: Marijuana Advance Directives: No Advance Directives Information Provided: No Do you have a plan to hurt others: No Plan Patient : Yes service: No Physical Exam ED Vital Signs: Vital Signs - 24 hr 07/24/24 08:19 07/24/24 09:29 Temperature 97.8 F Pulse Rate 86 94 Respiratory Rate 18 18 Blood Pressure 127/75 139/83 Pulse Oximetry 97 100 Oxygen Delivery Method Room Air Room Air BMI result Body Mass Index 36.6 Const General: cooperative, healthy appearing, comfortable, no acute distress, well developed, alert, awake and Physically active Orientation/consciousness: patient oriented x3 HENMT Head: Yes normal to inspection, Yes No palpable skull fracture present, Yes normocephalic, Yes atraumatic and No abrasion Ears: hearing grossly normal bilaterally, external ears normal, TM's normal bilaterally, TM normal on the right, TM normal on the left, EAC's normal, mastoids normal and no periauricular adenopathy Eyes General: appearance normal, both eyes and all related structures Neck Neck: Yes normal visual inspection, Yes full ROM, Yes no lymphadenopathy, Yes no meningeal signs, Yes trachea midline, Yes supple, No anterior neck swelling and No tender Chest Chest palpation & inspection: normal inspection of the chest and normal palpation of entire chest wall Resp Effort & Inspection: normal respiratory effort and able to speak in complete sentences Auscultation: clear to auscultation bilaterally Cardio Jugular venous distension: no JVD Heart sounds: S1 normal heart sound present and S2 normal heart sound present GI Inspection: Yes normal to inspection Palpation (GI): Soft to palpation, not firm, nontender, no guarding and not rigid General: No CVA tenderness and Yes no CVA tenderness Back/Spine/Pelvis Back: no CVA tenderness, No CVA tenderness and No back tenderness Skin General skin exam: no rashes or lesions noted, elasticity normal and turgor normal Neuro General: patient oriented x3, gait normal, tone normal, moves all extremities, Normal light touch and pain sensation, no meningeal signs, no focal motor deficits, CN's II-XI intact bilaterally and normal sensation to monofilament Extrem General: Yes normal to inspection, Yes full ROM and Yes capillary refill normal Ankle/foot/toe images: 1. Positive for tenderness on palpation. Negative for crepitus, ecchymosis, deformity, swelling, redness, hotness, or coldness. Motor/neuro/vascular exam intact. Psych Appearance: grossly normal, well kempt and not disheveled Medical Decision Making Medical Decision Making MDM Narrative: 23-year-old female 13 weeks presents to ED left ankle discomfort. Patient states am able to ambulate and bear weight. Patient denies any headache, abdominal pain, nausea, vomiting, abdominal cramping, vaginal bleeding, vaginal discharge. Patient states she just twisted ankle and fell onto her buttock. Presently patient is asymptomatic. Patient is sent for x-rays. Bedside heart rate is 154. No need for transvaginal ultrasound. Patient denies any abdominal pain, vaginal bleeding, vaginal discharge, or cramping. 12:19pm: X-rays negative for fracture patient is safe for discharge. Patient explained worrisome signs and informed to return to the ED immediately Differential Diagnosis Differential Diagnoses: The differential diagnosis associated with the presentation includes (Fracture, dislocation, sprain) Admission/Observation Consideration of admission/observation: Escalation of care including admission/observation considered Lab Data [facility] Lab Attestation statement: I reviewed the patient's lab results. Independent Interpretation I performed an independent interpretation of an: Plain X-Ray Radiology Impression Discussion of test interpretation with radiology: I have reviewed the radiologist's reading. Independent Historian Clinical information obtained from an independent historian. History obtained from or confirmed by: Other (patient) External Record Review External record reviewed: Other (prior visits) Prescription Management I considered prescription management with: Other Discharge Plan Discharge Clinical Impression: Ankle sprain Patient Disposition: Home, Self-Care Instructions: Ankle Sprain (ED) Additional Instructions: Your ankle for x-ray came back normal and negative for fractures. Recommend follow up with the primary care provider and OBGYN. Return to the ED immediately for any abdominal pain, vaginal bleeding, vaginal discharge, lower extremity swelling pitting edema, calf tenderness, fever, chills, or any other concerning symptoms. Prescriptions: No Action ondansetron 4 mg tablet,disintegrating 4 mg PO Q8H PRN (Reason: nausea and vomiting) Qty: 12 0RF clonidine HCl 0.1 mg tablet 0.1 mg PO BEDTIME PRN (Reason: Sleep) clonazepam 0.5 mg tablet 0.5 mg PO DAILY PRN (Reason: Anxiety) valacyclovir 500 mg tablet 500 mg PO DAILY meloxicam 7.5 mg tablet 7.5 mg PO DAILY bupropion HCl 300 mg tablet extended release 24 hr 300 mg PO QAM duloxetine 30 mg capsule,delayed release(DR/EC) 30 mg PO QAM duloxetine 60 mg capsule,delayed release(DR/EC) 60 mg PO QAM cefuroxime axetil 500 mg tablet 500 mg PO BID 10 Days Qty: 20 0RF ondansetron 4 mg tablet,disintegrating 4 mg PO Q8H PRN (Reason: nausea and vomiting) Qty: 9 0RF cephalexin 500 mg capsule 500 mg PO TID Qty: 15 0RF Stand Alone Forms: Work/School Release Interventions: ED Discharge Assessment Last Done: 07/24/24 14:35 Discharge Date/Time: 07/24/24 14:36 Print Language: Puerto Rican
--- NOTE | 2024-07-24 10:16 | PC.NURSE ---
heart rate = 158
[2024-07-24 12:38] VITALS: BP 117/72; PULSE 83; RESP 18; TEMP 36.8; O2SAT 98
[2024-07-24 14:35] VITALS: BP 117/72; PULSE 83; RESP 18; TEMP 36.8; O2SAT 98
== END 2024-07-24 14:36 | disposition home or self-care (01) ==
PROVIDERS: Emergency Provider Emergency Medicine; PCP Internal Medicine
DX: O9A.211 Injury, poisoning and certain other consequences of external causes complicating pregnancy, first trimester (principal); S93.402A Sprain of unspecified ligament of left ankle, initial encounter; W10.8XXA Fall (on) (from) other stairs and steps, initial encounter; Y93.89 Activity, other specified; Y92.038 Other place in apartment as the place of occurrence of the external cause; Y99.9 Unspecified external cause status; Z3A.13 13 weeks gestation of pregnancy
CPT/HCPCS: 73610; 73620; 99283; 99284

== ENCOUNTER 2025-06-06 20:54 | Emergency (ER) | payer OTHER, SELFPAY ==
[2025-06-06 21:10] VITALS: BP 103/56; PULSE 108; RESP 16; TEMP 36.6; O2SAT 95; BMI 52.1
[2025-06-06 22:02] LABS: IDNOW Serial# 6674DD1D; Strep A Nucleic Acid Negative (Negative)
[2025-06-06 22:05] LABS: Resp Syncy Virus RNA Qual PCR NEGATIVE (Negative); SARS COV2 PCR INHOUSE NEGATIVE (Negative)
--- OUTSIDE RECORDS SUMMARY | 2025-06-06 22:52 | XMS_ITS | Encounter Summary ---
Author Organization [facility] Address [address] [place] [address] Phone Care Team Providers Care Machine Or Machinery Mechanic Name Role Phone Pat Covington NP Primary Care Provider [phone] Encounter Details Date Type Department Care Team (Late st Contact Info) Description 06/05/2011 Conversion Encounter [facility] [address] [place] [address] [place] [phone] Social History Tobacco Use Types Packs/Day Years Used Date Smoking Tobacco: Never Assessed Comments Unknown Sex and Gender Information Value Date Recorded Sex Assigned at Not on file Legal Sex Female 6:34 PM EDT Gender Identity Not on file Sexual Orientation Not on file documented as of this encounter Plan of Treatment Not on file documented as of this encounter Visit Diagnoses Not on filedocumented in this encounter Care Teams Machine Or Machinery Mechanic Relationship Specialty Start [place] [address] [place] [address] [place] [phone] PCP - General Pediatrics 02/18/21 documented as of this encounter
--- OUTSIDE RECORDS SUMMARY | 2025-06-06 22:52 | XMS_ITS | Clinical Summary ---
Author Organization [facility] Address [address] [place] [address] Care Team Providers Care Tests Superintendent Name Role Phone Kelly Knight MD Primary Care Provider [phone] Allergies Active Allergy Reactions Criticality Noted Date Comments Nickel 10/25/2022 Propylene Glycol 10/25/2022 Medications arm brace (Wrist Brace) misc 2 Each by Does not apply route at bedtime. One Wrist splint for both right and left wrist 4 Active albuterol HFA (PROAIR HFA ; PROVENTIL HFA ; VENTOLIN HFA) 90 mcg/actuation inhaler Inhale 2 Puffs into the lungs every 6 hours as needed for Cough, Wheezing or Shortness of Breath. 2 Active buPROPion XL (WELLBUTRIN XL) 150 mg 24 hr tablet Take 2 Tablets by mouth every morning. 3 Active DULoxetine (CYMBALTA) [address] capsule Take 3 Capsules by mouth daily. 3 Active meloxicam (MOBIC) 7.5 mg tablet Take 1 Tablet by mouth daily. 4 Active propranoloL (INDERAL) 20 mg tablet Take 1 Tablet by mouth as needed. 3 Active traZODone (DESYREL) 50 mg tablet Take 1 Tablet by mouth at bedtime. 3 Active valACYclovir (VALTREX) 500 mg tablet Take 1 Tablet by mouth daily. 3 Active Active Problems Problem Noted Date Diagnosed Date Abnormal EKG 09/17/2023 Palpitations 09/17/2023 Irritable bowel syndrome with diarrhea Diarrhea 07/24/2022 Hematochezia 07/24/2022 Rash 07/24/2022 Migraine with aura and witho ut status migrainosus, not intractable 06/28/2021 Mild intermittent asthma 06/28/2021 HENRY (generalized anxiety disorder) 03/25/2021 Sciatica 03/25/2021 Immunizations Name Administration Dates Next Due Moderna SARS-CoV-2 COVID-19, mRNA, LNP-S, preservative free 09/15/2021,04/13/2021,03/16/2021 Tdap Tetanus diptheria acell ular pertussis (Boostrix; Adacel) 7yo and older 06/30/2021 Surgical History Surgery Date Site/Laterality Comments TONSILLECTOMY PROCEDURE: HISTORICAL TONSILLECTOMY Medical History Medical History Date Comments Anxiety disorder DX:Anxiety diso rder Asthma DX:Asthma Migraines DX:Migraines History of herpes genitalis DX:H istory of herpes genitalis Family History Medical History Relation Name Comments Asthma Maternal Grandmother DM, HTN , COPD, crohn's Asthma Mother HTN Cervical cancer Mother's side GGMA Asthma Sister ADHD Relation Name Status Comments Maternal Grandmother Alive Mother Alive Mother's side Alive Sister Alive Social History Tobacco Use Types Packs/Day Years Used Date Smoking Tobacco: Never Smokeless Tobacco: Never Alcohol Use Standard Drinks/Week Comments Not Currently 0 (1 standard drink = 0.6 oz pur e alcohol) Comments Unknown Sex and Gender Information Value Date Recorded Sex Assigned at Not on file Legal Sex Female 7:57 AM EST Gender Identity Not on file Sexual Orientation Not on file Obstetrics History Last Filed Vital Signs Vital Sign Reading Time Taken Comments Blood Pressure 135/85 03/17/2024 2:14 PM EDT Pulse 85 03/17/2024 2:14 PM EDT Temperature - - Respiratory Rate - - Oxygen Saturation - - Inhaled Oxygen Concentration - - Weight 128 kg (283 lb) 03/17/2024 2:14 PM EDT Height 162.6 cm (5' 4 ) 12/04/2023 10:00 AM EST Body Mass Index 48.58 12/04/2023 10:00 AM EST Plan of Treatment Health Maintenance Due Date Last Done Comments HPV Vaccines (1 - 3-dose series) 2016 Hepatitis B Vaccines (1 of 3 - 19+ 3-dose series) 2020 Pneumococcal Vaccine: Pediatrics (0 to 5 Years) and At-Risk Patients (6 to 49 Years) (1 of 2 - PCV) 2020 Cervical Cancer Screening: P ap Smear 2022 Social Influencers of Health Screening 10/14/2022 COVID-19 Vaccine (4 - 2023-2 5 season) 2024 09/15/2021, 04/13/2021, 03/16/2021 Depression Screening 11/05/2024 Gonorrhea/Chlamydia Screening 03/17/2025 03/17/2024 Influenza Vaccine (#1) 2025 Cholesterol Screening (Lipid Panel) 06/28/2026 06/28/2021 DTaP,Tdap,and Td Vaccines (2 - Td or Tdap) 06/30/2031 06/30/2021 Hepatitis C Screening Completed 06/28/2021 HIV Screening Completed 07/24/2022 HIB Vaccines Aged Out No longer eligi ble based on patient's age to complete this topic Hepatitis A Vaccines Aged Out No long er eligible based on patient's age to complete this topic IPV Vaccines Aged Out No longer eligi ble based on patient's age to complete this topic MMR Vaccines Aged Out No longer eligi ble based on patient's age to complete this topic Meningococcal ACWY Vaccine Aged Out N o longer eligible based on patient's age to complete this topic Meningococcal B Vaccine Aged Out No l onger eligible based on patient's age to complete this topic RSV Immunization Patients Under 20 months Aged Out No longer eligible b ased on patient's age to complete this topic Varicella Vaccines Aged Out No longer eligible based on patient's age to complete this topic Procedures Procedure Name Priority Date/Time Associated Diagnosis Comments HM GONORRHEA/CHLAMYDIA SCRREENING Routine 03/17/2024 HM HIV SCREENING Routine 07/24/2022 HM HEPATITIS C SCREENING Routine 06/28/2021 LIPID PANEL Routine 06/28/2021 from Last 3 Months or Most Recently Relevant to Health Maintenance Results * Hm Gonorrhea/Chlamydia Screening (03/17/2024) Gonorrhea/Chla mydia Screening Abstracted [facility] Provider HEALTH MAINTENANCE Final Result * HIV Screening (07/24/2022) Pathologist [facility] HIV Screening Abstracted [facility] Provider HEALTH MAINTENANCE Final Result * Hepatitis C Screening (06/28/2021) [facility]ologist [facility] Hepatitis C Screening Abstracted [facility] Provider HEALTH MAINTENANCE Final Result * (ABNORMAL) Lipid panel (06/28/2021) [facility] LDL/HDL Ratio 7(A) 0 - 4 Triglycerides 247(A) 0 - 150 mg/dL Cholesterol 156 0 - 200 mg/dL HDL 24(A) >=40 mg/dL LDL Cholesterol 83 0 - 100 mg/dL Blood Venous blood specimen / Unknown Result [facility] Provider LAB BLOOD ORDERABLES Aicha l Result from Last 3 Months or Most Recently Relevant to Health Maintenance Care Teams Tests Superintendent Relationship Specialty Start Date End Date Kelly Knight MD PCP - General Internal Medicine 05/09/22
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
--- OUTSIDE RECORDS SUMMARY | 2025-06-06 22:52 | XMS_ITS ---
Author Name [facility] Organization Unknown Care Team Organization Name Specialty Phone Email Start Date End Da te [facility] Kelly Knight Primary Care 02/06/2023 024 [facility] Komal Limon Primary Care 09/12/20222023
--- NOTE | 2025-06-07 | ED.GENADULT ---
HPI - General Adult General Chief complaint: General Medical Stated complaint: sob,sore throat,ear ache Time Seen by Provider: 06/06/25 22:36 Source: patient Limitations: no limitations History of Present Illness ED Provider: Saima Burdick PA-C HPI narrative: 25-year-old female with a history of asthma presents with cough and cold symptoms x1 day. Associated generalized malaise, nasal congestion with sinus pressure, bilateral ear pressure, sore throat. Denies fevers. Denies sick contacts with same symptoms. Denies wheezing or cough. Related Data Home Medications ?Medication ?Instructions ?Recorded ?Confirmed bupropion HCl 300 mg 24 hr tablet, 300 mg PO QAM 04/12/24 04/12/24 extended release clonazepam 0.5 mg tablet 0.5 mg PO DAILY PRN Anxiety 04/12/24 04/12/24 clonidine HCl 0.1 mg tablet 0.1 mg PO BEDTIME PRN Sleep 04/12/24 04/12/24 duloxetine 30 mg capsule,delayed 30 mg PO QAM 04/12/24 04/12/24 release duloxetine 60 mg capsule,delayed 60 mg PO QAM 04/12/24 04/12/24 release meloxicam 7.5 mg tablet 7.5 mg PO DAILY 04/12/24 04/12/24 valacyclovir 500 mg tablet 500 mg PO DAILY 04/12/24 04/12/24 Previous Rx's ?Medication ?Instructions ?Recorded ondansetron 4 mg disintegrating 4 mg PO Q8H PRN nausea and 04/11/24 tablet vomiting #12 tabs cefuroxime axetil 500 mg tablet 500 mg PO BID 10 days #20 tabs 04/14/24 cephalexin 500 mg capsule 500 mg PO TID #15 caps 05/22/24 ondansetron 4 mg disintegrating 4 mg PO Q8H PRN nausea and 05/22/24 tablet vomiting #9 tabs acetaminophen 500 mg tablet 1,000 mg (2 x 500 mg) PO Q8H PRN 06/07/25 (Acetaminophen Extra Strength) fever or pain #30 tabs guaifenesin 1,200 mg tablet, 1,200 mg PO Q12H #14 tabs 06/07/25 extended release 12 hr loratadine 10 mg tablet (Claritin) 10 mg PO DAILY #14 tabs 08/03/25 Allergies Allergy/AdvReac Type Severity Reaction Status Date / Time nickel Allergy Hives Verified 06/06/25 21:10 propylene glycol Allergy Hives Verified 06/06/25 21:10 Review of Systems Review of Systems: Yes all other systems are reviewed and are negative Constitutional: Constitutional: Denies fatigue, Denies fever(s) and Reports malaise ENT: Reports otalgia, Reports nasal congestion, Reports sinus pressure and Reports sore throat Cardiovascular: Cardiovascular: Denies dyspnea Respiratory: Respiratory: Denies cough, Denies dyspnea and Denies wheezing Gastrointestinal: Gastrointestinal: Denies nausea and Denies vomiting Endocrine: Endocrine: Denies fatigue Allergic/Immunologic: Allergic/Immunologic: Denies wheezing PMFSH Past Medical History Attestation statement: The following information was validated with the patient. Medical History (Updated 06/07/25 @ 00:04 by ARTURO Davis) Genital herpes Mood disorder Sciatic leg pain Migraines Anxiety Scarlet fever Surgical History H/O adenoidectomy Hx of tonsillectomy Social History Social History Alcohol intake: current Alcohol intake frequency: holidays/special occasions only Patient Tobacco Use Status: Former Tobacco user Substance Use Type: Marijuana Advance Directives: No Advance Directives Information Provided: No service: No Physical Exam ED Vital Signs: Vital Signs - 24 hr 06/06/25 21:10 Temperature 98 F Pulse Rate 108 H Respiratory Rate 16 Blood Pressure 103/56 L Pulse Oximetry 95 Oxygen Delivery Method Room Air BMI result Body Mass Index 52.1 Const Other: Alert Orientation/consciousness: patient oriented x3 HENMT Other: No tragal tenderness of bilateral ears, cerumen in right ear, the TM that is visualized is cloudy, the left TM is cloudy, oropharynx is mildly pink, no erythema or exudate, uvula midline, no sublingual fluctuance, no swelling inferior to the jawline no trismus no drooling Resp Other: Lungs clear to auscultation no wheezing Cardio Other: Normal peripheral perfusion Skin Other: Warm dry no rash Neuro General: patient oriented x3, gait normal, no focal motor deficits and CN's II-XI intact bilaterally Psych Other: Cooperative Medical Decision Making Medical Decision Making MDM Narrative: 25-year-old female with a history of asthma presents with cough and cold symptoms x1 day. Associated generalized malaise, nasal congestion with sinus pressure, bilateral ear pressure, sore throat. Denies fevers. Denies sick contacts with same symptoms. Denies wheezing or cough. 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 We will treat accordingly. I have independently reviewed the following tests: Labs: Viral panel negative, strep screen negative Lab Data Labs: Lab Results 06/06/25 Range/Units 21:18 Influenza Type A (PCR) NEGATIVE (Negative) Influenza Type B (PCR) NEGATIVE (Negative) RSV RNA Qual (PCR) NEGATIVE (Negative) SARS-CoV-2 RNA (RT-PCR) NEGATIVE (Negative) S. pyogenes GrpA BRIAN Negative (Negative) Discharge Plan Discharge Clinical Impression: Acute serous otitis media, Acute viral syndrome, Pharyngitis Patient Disposition: Home, Self-Care Instructions: Pharyngitis (ED), Viral Syndrome (ED), Fluid In The Ear (Serous Otitis Media) (ED) Additional Instructions: You were tested for influenza RSV and COVID, the viral panel was negative. You were also tested for strep throat, that was negative as well. You have yet another virus causing your symptoms. You were found to have fluid within the inner ears, this is congestion called serous otitis. Use the Claritin and Mucinex as directed for congestion. Warm saltwater gargles we will help your sore throat. You can alternate between [id number] ibuprofen 600 mg taken every 6 hours with food, with [id number] Tylenol 1000 mg taken every 8 hours, as needed for headache, body pain or fever. Follow up with primary care as needed Prescriptions: New loratadine [Claritin] 10 mg tablet 10 mg PO DAILY Qty: 14 0RF guaifenesin 1,200 mg tablet extended release 12hr 1,200 mg PO Q12H Qty: 14 0RF acetaminophen [Acetaminophen Extra Strength] 500 mg tablet 1,000 mg PO Q8H PRN (Reason: fever or pain) Qty: 30 0RF No Action ondansetron 4 mg tablet,disintegrating 4 mg PO Q8H PRN (Reason: nausea and vomiting) Qty: 12 0RF clonidine HCl 0.1 mg tablet 0.1 mg PO BEDTIME PRN (Reason: Sleep) clonazepam 0.5 mg tablet 0.5 mg PO DAILY PRN (Reason: Anxiety) valacyclovir 500 mg tablet 500 mg PO DAILY meloxicam 7.5 mg tablet 7.5 mg PO DAILY bupropion HCl 300 mg tablet extended release 24 hr 300 mg PO QAM duloxetine 30 mg capsule,delayed release(DR/EC) 30 mg PO QAM duloxetine 60 mg capsule,delayed release(DR/EC) 60 mg PO QAM cefuroxime axetil 500 mg tablet 500 mg PO BID 10 Days Qty: 20 0RF ondansetron 4 mg tablet,disintegrating 4 mg PO Q8H PRN (Reason: nausea and vomiting) Qty: 9 0RF cephalexin 500 mg capsule 500 mg PO TID Qty: 15 0RF Stand Alone Forms: Work/School Release Print Language: Maldivian
[2025-06-07] MEDS: guaiFENesin LA 600 MG TAB.ER.12H 1200 MG PO (00:03)
[2025-06-07 00:13] VITALS: BP 103/56; PULSE 108; RESP 16; TEMP 36.6; O2SAT 95
== END 2025-06-07 00:14 | disposition home or self-care (01) ==
PROVIDERS: Emergency Provider Emergency Medicine; PCP Internal Medicine
DX: B34.9 Viral infection, unspecified (principal); H65.03 Acute serous otitis media, bilateral; J02.9 Acute pharyngitis, unspecified; Z03.818 Encounter for observation for suspected exposure to other biological agents ruled out; J45.909 Unspecified asthma, uncomplicated; F12.90 Cannabis use, unspecified, uncomplicated
CPT/HCPCS: 87637; 87651; 99282; 99283